=== PATIENT | male | born 1955 | race African-American/Black ===

== ENCOUNTER 2016-07-24 16:25 | Inpatient (IN) ==
[~2016-07-24 16:25] MED LIST: LIDOCAINE 100 MG/5 ML SYRINGE ONE; PHENYLEPHRINE 1 MG/10 ML SYRINGE IV ONE; PROPOFOL 200 MG/20 ML VIAL IV ONE
[2016-07-24] MEDS ORDERED: SODIUM CHLORIDE 0.9% 1,000 ML IV STA (16:48)
[2016-07-24 16:59] LABS: Basophils % 0.3 % (0.0-0.8); Eosinophils # 0.1 10*3/uL (0.0-0.87); Hematocrit 28.3 VOL% (42.0-52.0); Hemoglobin 10.5 GM/DL (14.0-18.0); Immature Granulocytes % 0.7 %; Immature Granulocytes Absolute 0.02 #; Lymphocytes % 32.5 % (21.2-54.2); Mean Corpuscular HGB Conc 37.1 GM/DL (32-36); Mean Corpuscular Hemoglobin 35 PG (27-34); Mean Corpuscular Volume 95.3 FL (87-102); Mean Platelet Volume 10.1 FL (9.6-12.0); Monocytes # 0.5 10*3/uL (0.11-0.8); Monocytes % 16.9 % (1.7-12.7); Neutrophils # 1.4 10*3/uL (1.4-7.4); Neutrophils % 47.6 % (38.7-73.9); Platelet Count 107 T/CUMM (130-400); Red Blood Count 2.97 MC/CUMM (3.8-5.5)
[2016-07-24 17:14] LABS: Alanine Aminotransferase 80 U/L (16-61); Albumin 2.8 G/DL (3.4-5.0); Alkaline Phosphatase 70 U/L (45-117); Aspartate Amino Transferase 348 U/L (0-37); Blood Urea Nitrogen 50 MG/DL (7-18); Calcium 9.1 MG/DL (8.5-10.1); Glucose 106 MG/DL (74-106); Osmolality,Calculated 295.1 MOS/KG (273-304); Sodium 142 MMOL/L (136-145); Total Protein 6.3 G/DL (6.4-8.3)
[2016-07-24 17:15] LABS: Troponin I Only 0.637 NG/ML (0.00-0.045)
[2016-07-24 17:16] LABS: Potassium 1.8 MMOL/L (3.5-5.1)
--- NOTE | 2016-07-24 17:18 | EKG Report ---
Stationary ECG Study [facility] ER Test Date: 07/24/2016 5:17:21 PM Pat Name: FERNIE KRAMER Department: Room: Gender: M [employer]: ELIEZER : 1955 Requested by: Xu Boogie Order Number: [id number] Reading MD: EDILMA HARPER Intervals [place] Rate: 56 P: 201 MA: 139 QRS: 19 QRSD: 117 T: -31 QT: 288 QTc: 279 Interpretive Statements Sinus rhythm with prolonged MA interval Prolonged QTc with repol abnorm Electronically Signed On 07-26-16 22:28:35 REHABILITATION PHYSICIAN by EDILMA HARPER [email or web address]
[2016-07-24] MEDS ORDERED: POTASSIUM CHLORIDE RIDER 20 MEQ in PREMIX 1 EACH IV STA (17:19)
[2016-07-24 17:44] LABS: Apearance,Urine Slightly Hazy (Clear); Bacteria,Urine Occasional /HPF (Few); Bilirubin,Urine Negative (Negative); Blood, Urine Negative (Negative); Glucose,Urine (UA) Negative (Negative); Hyaline Casts,Urine 3 /LPF (0-3); Ketones,Urine 5 mg/dL (Negative); Mucus,Urine Occasional /LPF (Occasional); Nitrite,Urine Positive (Negative); Protein,Urine 30 MG/DL; RBC,Urine 2 /HPF (0-4); Squamous Epithelial Cell,Urine Occasional /HPF (0-10); Urine Color Amber (Yellow); Urine Specific Gravity 1.014 (1.001-1.035); WBC,Urine 17 /HPF (0-6)
[2016-07-24 18:02] LABS: Ammonia 171 UMOL/L (11-32)
[2016-07-24] MEDS ORDERED: POTASSIUM CHLORIDE RIDER 200 ML IV ONE (18:05)
[2016-07-24 18:08] LABS: Barbiturates Screen,Urine Negative (Negative); Benzodiazepines Screen,Urine Negative (Negative); Cannabinoid Screen,Urine Negative (Negative); Opiate Screen,Urine Negative (Negative); Phencyclidine Screen,Urine Negative (Negative)
--- NOTE | 2016-07-24 18:15 | CT Report ---
CT head/brain wo con INDICATION: Altered mental status/confusion The total DLP is 1103 mGy*cm. COMPARISON: Noncontrast CT head dated November 20, 2015 Technique: Serial axial tomographic images of the brain were obtained without the use of intravenous contrast. Findings: Moderate, somewhat advanced, generalized atrophy is noted with mild prominence of the sulci and cortical volume loss. There is also prominent periventricular white matter hypodensity changes, which do not demonstrate mass effect and are slightly progressed from the prior study likely representing sequela of chronic microvascular ischemia. Remote right basal ganglia lacunar infarct is noted, which extends into the right centrum semiovale. There is no evidence of vascular territory infarct or acute intracranial hemorrhage. The persaud-white matter differentiation is generally maintained. There is no hydrocephalus. The basilar cisterns are patent. The visualized paranasal sinuses, mastoid air cells and middle ear cavities are predominantly clear. The included orbits and their contents appear within normal limits. The visualized osseous structures and overlying soft tissues of the skull and face demonstrate no acute abnormality. IMPRESSION: No acute intracranial hemorrhage or infarction. Age advanced atrophy with sequelae of chronic microvascular ischemia. If there is concern for acute infarct, MRI would be recommended. PROCEDURE INTERPRETED AT [facility] DEPARTMENT OF RADIOLOGY Final Report Signed by: Jeanmarie Lange
--- NOTE | 2016-07-24 18:22 | Emergency Department Note ---
Brian Mcdaniel Brittany, am scribing for, and in the presence of, Dirk Chirinos MD 16:53. Taran Mcdaniel Doug C, MD, personally performed the services described in this documentation, ascribed by Candace Torres in my presence, and it is both accurate and complete 821 . Arrival - Arrival Chief Complaint: Altered Mental Status ED Nursing Triage Note: reports pt having decreased appetite and seems to not be himself for the past few days. Pt is awake, alert, and follows simple commands but is not speaking which states is unusual. Mode of Arrival: Stretcher Limitations: No Limitations Source: Significant other, Old Records Reviewed, RN Notes Reviewed Time Seen by Provider: 07/24/16 16:47 - History of Present Illness HPI Narrative: Patient is a 60-year-old black male brought to the emergency room by family with complaints of decreased responsiveness. This is apparently been going on now for about 3 days according to the and he has had no appetite and is ate very little. He has not had any respiratory symptoms and has not had any nausea vomiting or diarrhea. I asked the about his habits and he apparently drinks about a pint of whiskey a day that the family brings to him at his urging. His states he has not had any alcohol mount 3 days. The parent was seen here in the emergency room on 07/17 and given some tramadol for pain but he is only taking 2 of those since that time. He has had no witnessed seizure activity. His is never seen him like this before. Allergies/Adverse Reactions: Allergies Allergy/AdvReac Type Severity Reaction Status Date / Time aspirin Allergy Mild Unknown/Unable Verified 07/24/16 16:37 to obtain lisinopril Allergy Unknown/Unable Verified 07/24/16 16:37 to obtain Home Medications: Home Medications Medication Instructions Recorded Confirmed Type Multivitamin [Multivitamins] 1 each PO DAILY #30 tablet 12/21/15 07/24/16 Rx Thiamine Tab [Vitamin B1 Tab] 100 mg PO DAILY #30 tablet 12/21/15 07/24/16 Rx hydroCHLOROthiazide 25 mg PO DAILY #30 tablet 12/21/15 07/24/16 Rx [Hydrochlorothiazide] Metoprolol Tartrate Tab [Lopressor 50 mg PO BID 01/05/16 07/24/16 History Tab] Potassium Chloride Cap/Tab [K Dur] 20 meq PO BID #14 tablet 07/11/16 07/24/16 Rx Review of System - Review of System 12 point system: reviewed and no additional remarkable complaints except as stated - Review of System Constitutional: Present: other (decreased appetite). Absent: chills, fever Eyes: Absent: vision change Head/Ears/Nose/Throat: Absent: nasal drainage, sore throat Respiratory: Present: respiratory distress. Absent: cough Cardiovascular: Absent: chest pain, palpitations Gastrointestinal: Absent: abdominal pain, nausea, vomiting, diarrhea, constipation Genitourinary male: Absent: urgency, dysuria, frequency Musculoskeletal: Present: arm pain, leg pain. Absent: back pain, neck pain Skin: Absent: rash Neurological: Present: confusion Medical,Surgical,& Family Hx - Medical History Cardio: History of: Cardiac Dysrhythmia (hx of afib not on anticoagulation), Hypertension Psychological: History of: Psychiatric/Substance Abuse Tx (ALCHOLISM he reports that he drinks at least a fifth a day. drinks all day) Neurology: History of: Brain Aneurysm, Cerebrovascular Accident HEENT: History of: Dental Problems (poor dentition) Rheumatology: History of;: Rheumatoid Arthritis Gastrointestinal: History of: GERD, Pancreatitis Musculoskeletal: History of: Musculoskeletal Problems (L SIDED WEAKNESS/ L UPPER EXT CONTRACTURE.) Hematology: History of: Anemia No history of: Blood Transfusion Reaction Other: History of: Miscellaneous Medical Problems (vein problems) No history of: Anesthesia Reactions - Surgical History Neurologic Surgeries: Surgical HX of: Brain Aneurysm Patient denies: Neurologic Surgery Abdominal Surgeries: Surgical HX of: Abdominal Surgery, Cholecystectomy, Colonoscopy, EGD, Hernia Repair - Family History Family History: Reports;: Family Cancer, Family Diabetes, Family Heart Disease, Family Hypertension, Family Stroke - Social History Smoking Status: Never smoker Frequency of Alcohol Use: Frequently Type of Drug Use: Unknown Exam Vital Signs: Vital Signs Temperature 97.9 F 07/24/16 16:30 Pulse Rate 96 H 07/24/16 16:30 Respiratory Rate 18 07/24/16 16:30 Blood Pressure 100/63 07/24/16 16:30 O2 Sat by Pulse Oximetry 96 07/24/16 16:30 - General General appearance: lethargic, obtunded, other (incoherent; responds to painful stimuli) - Head Head exam: Present: atraumatic, normocephalic - Eye Eye exam: Present: normal appearance, PERRL, EOMI, scleral icterus (Slight icterus seen.) - ENT ENT exam: Present: normal oropharynx, mucous membranes moist - Neck Neck exam: Present: normal inspection, full ROM, trachea midline - Chest Chest inspection: Present: normal inspection, symmetric chest wall rise - Respiratory Respiratory exam: Present: normal lung sounds bilaterally. Absent: rales, rhonchi, wheezes - Cardiovascular Cardiovascular exam: Present: regular rate, normal rhythm, normal heart sounds. Absent: murmur, rubs, gallop - Abdominal Exam Abdominal exam: Present: soft, normal bowel sounds. Absent: distention, tenderness - Extremities Exam Extremities exam: Present: pedal edema. Absent: full ROM (limited due to residual paralysis of the left side from prior CVA), joint swelling - Back Exam Back exam: Present: normal inspection - Neurological Exam Neurological exam: Present: CN II-XII intact, motor sensory deficit (residual left sided paralysis from prior CVA). Absent: alert (patient is lethargic, but responds to painful stimuli), oriented X3 - Psychiatric Psychiatric exam: Present: flat affect - Skin Skin exam: Present: warm, dry, intact, normal color Course Course Narrative: Patient's clinical presentation and laboratory findings as well as radiographic findings were discussed with Dr. Cheli Dennis who will arrange for patient to be admitted. Results - Labs CBC & BMP: 07/24/16 16:33 07/24/16 16:33 Lab Results: I have reviewed the patients labs Labs: Laboratory Tests 07/24/16 07/24/16 07/24/16 16:33 16:33 16:50 WBC 3.0 L RBC 2.97 L Hgb 10.5 L Hct 28.3 L MCV 95.3 MCH 35 H MCHC 37.1 H RDW 14.0 Plt Count 107 L MPV 10.1 Neut % (Auto) 47.6 Lymph % (Auto) 32.5 Quay % (Auto) 16.9 H Eos % (Auto) 2.0 Baso % (Auto) 0.3 Neut # (Auto) 1.4 Lymph # (Auto) 1.0 L Quay # (Auto) 0.5 Eos # (Auto) 0.1 Baso # (Auto) 0.0 Immature Gran % 0.7 Nucleated RBC % 0.0 Immature Gran # 0.02 Nucleated RBCs # 0.00 Sodium 142 Potassium 1.8 L* Chloride 107 Carbon Dioxide 15 L Anion Gap 21.8 H BUN 50 H Creatinine 2.10 H GFR Calculation 44 BUN/Creatinine Ratio 23.00 H Glucose 106 POC Glucose 91 Calculated Osmolality 295.1 Calcium 9.1 Total Bilirubin 3.10 H AST 348 H ALT 80 H Alkaline Phosphatase 70 Troponin I 0.637 H Total Protein 6.3 L Albumin 2.8 L Globulin 3.5 Albumin/Globulin Ratio 0.8 L Serum Alcohol < 15 L Laboratory Tests 07/24/16 16:33 Prolactin 40.8 - EKG EKG shows: bradycardia (Sinus bradycardia at 56 bpm) - Impressions Diffuse ST-T flattening - Diagnostic Findings Procedure: Chest x-ray: report reviewed by me (No acute abnormality seen.), CT: report reviewed by me (CT brain revealed changes of atrophy. I saw no acute hemorrhage) Disposition Clinical Impression: Hepatic encephalopathy, Hypokalemia Case discussed with: patient's family Disposition: Still a Patient Condition: Guarded Time of Disposition: 18:21
--- NOTE | 2016-07-24 18:42 | XRay Report ---
Exam: XR chest 1V portable Indication: Altered mental status, confusion Comparison study: April 21, 2016 Findings: The heart, mediastinum and bony structures are stable from prior. Minimal perihilar interstitial opacities are noted bilaterally which are slightly increased from prior and may represent a degree of underlying edema superimposed on chronic scarring. Low lung volumes are noted. There is improved aeration within the left lung base. There is no focal consolidation, pneumothorax or pleural effusion identified. Impression: Improved aeration within the left lung base. Residual central perihilar scarring is suggested in the degree of pulmonary edema is not excluded. Interval clearing of left basilar opacities. PROCEDURE INTERPRETED AT [facility] DEPARTMENT OF RADIOLOGY Final Report Signed by: Jeanmarie Lange
[2016-07-24] MEDS ORDERED: THIAMINE 200 MG/2 ML VIAL IV STA (18:44)
[2016-07-24] MEDS ORDERED: THIAMINE 200 MG/2 ML VIAL ONE (18:48)
--- NOTE | 2016-07-24 18:58 | Hospitalist History & Physical ---
Assessment and Plan (1) Hepatic encephalopathy Status: Acute Assessment and plan: ammonia level of 171, lactulose 20 grams q 4 hours through NG Current Visit: Yes (2) Alcoholic hepatitis Status: Acute Assessment and plan: Monitor liver enzymes, check PT PTT Current Visit: Yes (3) Cirrhosis Status: Acute Assessment and plan: Pancytopenia and elevated ammonia suggestive cirrhosis Current Visit: Yes (4) Pancytopenia Status: Acute Assessment and plan: Check B12 and folate but most likely due to cirrhosis, will give Pepcid 20 mg IV every 12 Current Visit: Yes (5) Hypotension Status: Acute Assessment and plan: will give D5 half normal saline with 1 amp of bicarb at 150 ml/hr Current Visit: Yes (6) UTI (urinary tract infection) Status: Acute Assessment and plan: rocephin IV Current Visit: Yes (7) Elevated troponin Status: Acute Assessment and plan: serial troponins and EKGs Current Visit: Yes (8) Alcoholic Status: Acute Assessment and plan: thiamine, folate, ciwa schedule, prn ativan, high risk for withdrawal and seizures Current Visit: Yes (9) Hypokalemia Status: Acute Assessment and plan: KCL 40 meq every 2 hours times 3, potassium chloride rider 60 meq IV over 6 hours Current Visit: Yes (10) Acute renal failure Status: Acute Assessment and plan: due to severe dehdyration, cont IVF, renal us in am Current Visit: Yes History of Present Illness Chief complaint: AMS History of present illness: Mr. Quijano is a 60 year old male with a history of stroke in 2010 which left him with left hemiparesis brought in for altered mental status. His ammonia level was 171. Patient is not walked in over a year but this does get up in the wheelchair but for the past few days he has been bedridden. Patient drinks about a pint of whiskey a day. He has had no alcohol since . He has been lethargic and has been taking an excessive amount of ibuprofen up to as much as 2000 mg a day. Patient has refused his blood pressure medicines for the last several days. He has stopped eating and drinking for last several days. denies any seizure activity. Patient has no desire to stop drinking at this point. Home Medications Medication Instructions Recorded Confirmed Type Multivitamin [Multivitamins] 1 each PO DAILY #30 tablet 12/21/15 07/24/16 Rx Thiamine Tab [Vitamin B1 Tab] 100 mg PO DAILY #30 tablet 12/21/15 07/24/16 Rx hydroCHLOROthiazide 25 mg PO DAILY #30 tablet 12/21/15 07/24/16 Rx [Hydrochlorothiazide] Metoprolol Tartrate Tab [Lopressor 50 mg PO BID 01/05/16 07/24/16 History Tab] Potassium Chloride Cap/Tab [K Dur] 20 meq PO BID #14 tablet 07/11/16 07/24/16 Rx Allergies Allergy/AdvReac Type Severity Reaction Status Date / Time aspirin Allergy Mild Unknown/Unable Verified 07/24/16 16:37 to obtain lisinopril Allergy Unknown/Unable Verified 07/24/16 16:37 to obtain Medical,Surgical,& Family Hx - Medical History Cardio: History of: Cardiac Dysrhythmia (hx of afib not on anticoagulation), Hypertension Psychological: History of: Psychiatric/Substance Abuse Tx (ALCHOLISM he reports that he drinks at least a fifth a day. drinks all day) Neurology: History of: Brain Aneurysm, Cerebrovascular Accident HEENT: History of: Dental Problems (poor dentition) Rheumatology: History of;: Rheumatoid Arthritis Gastrointestinal: History of: GERD, Pancreatitis Musculoskeletal: History of: Musculoskeletal Problems (L SIDED WEAKNESS/ L UPPER EXT CONTRACTURE.) Hematology: History of: Anemia No history of: Blood Transfusion Reaction Other: History of: Miscellaneous Medical Problems (vein problems) No history of: Anesthesia Reactions - Surgical History Neurologic Surgeries: Surgical HX of: Brain Aneurysm Patient denies: Neurologic Surgery Abdominal Surgeries: Surgical HX of: Abdominal Surgery, Cholecystectomy, Colonoscopy, EGD, Hernia Repair - Family History Family History: Reports;: Family Cancer, Family Diabetes, Family Heart Disease, Family Hypertension, Family Stroke - Social History Smoking Status: Never smoker Frequency of Alcohol Use: Frequently Type of Drug Use: Unknown Marital Status: Lives With:: Spouse Functional capacity: wheelchair bound ROS unobtainable: due to delirium - Neurological Neurological: Present: confusion, focal weakness (left hemiparesis chronic ). Absent: convulsions - Psychiatric Psychiatric: Present: depression - Hematologic/Lymphatic Hematologic/Lymphatic: Present: easy bleeding, easy bruising Exam - Constitutional Vitals: Period Temp Pulse Resp BP Sys/Newton Pulse Ox Last 24 Hr 97.9 F 96-96 18-20 100/63 96 General appearance: mild distress, under weight - Head Head exam: Present: normal inspection, normocephalic - Eye Eye exam: Present: EOMI, scleral icterus Pupils: Present: SOBEIDA - ENT ENT exam: Present: normal exam, normal external ear exam - Neck Neck exam: Absent: lymphadenopathy, thyromegaly - Respiratory Respiratory exam: Present: clear to auscultation bilaterally. Absent: rhonchi, wheezes - Cardiovascular Cardiovascular exam: Present: systolic murmur, tachycardia - GI/Abdominal GI/Abdominal exam: Present: normal bowel sounds, soft. Absent: tenderness - Extremities Exam Extremities exam: Present: normal capillary refill, edema - Neurological Exam Neurological exam: Present: altered, reflexes normal - Psychiatric Psychiatric exam: Present: depressed, flat affect - Skin Skin exam: Present: normal color, warm Results - Labs CBC & BMP: 07/24/16 16:33 07/24/16 16:33 Lab Results: I have reviewed the past 24 hour labs Labs: AST 348, ALT 80, ammonia level 171, troponin 0.637, prolactin 40, UA positive for infection, drug screen negative and alcohol level less than 15 - Diagnostic Findings Procedure: Chest x-ray: report reviewed by me (Nothing acute), CT: report reviewed by me (Advanced atrophy of the brain)
[2016-07-24 19:16] LABS: Burr Cells Few; Eosinophils 2 % (0-10); Lymphocytes 24 % (20-55); Platelet Estimate Decreased; Poikilocytosis 1+; Segmented Neutrophils 66 % (50-85); Tear Drop Cells Few; Total Cells Counted 100
[2016-07-24] MEDS ORDERED: ONDANSETRON 4 MG/2 ML VIAL IV PRN (19:25)
[2016-07-24] MEDS: SODIUM BICARB INJ 50 MEQ in DEXTROSE 5% NACL 0.45% 1,000 ML IV SCH (20:18)
[2016-07-24 20:41] LABS: INR 1.9; Partial Thromboplastin Time 32.7 SECS (0-40)
[2016-07-24 20:42] LABS: PT Patient Result 21.4 SECS
[2016-07-24 20:53] LABS: Magnesium 2.2 MG/DL (1.8-2.4); Thyroid Stimulating Hormone 2.17 uIU/ml (0.358-3.74); Troponin I Only 0.548 NG/ML (0.00-0.045)
[2016-07-24 20:57] LABS: Folate > 24.0 NG/ML (5.4-24.0); Vitamin B12 > 2000 PG/ML (211-911)
[2016-07-24] MEDS ORDERED: MAGNESIUM SULF INJ 3 GM in SODIUM CHLORIDE 0.9% 100 ML IV ONE (21:00)
[2016-07-24] MEDS: cefTRIAXone 1,000 MG in SODIUM CHLORIDE 0.9% 100 ML IV SCH (21:15)
[2016-07-24] MEDS: POTASSIUM CHLORIDE 20 MEQ/15 ML UDCUP PER TUBE SCH ×2 (21:16→22:25)
[2016-07-24] MEDS: LACTULOSE 20 GM/30 ML UDCUP PO SCH (21:17)
[2016-07-24] MEDS: FAMOTIDINE 20 MG/2 ML VIAL IV SCH (21:17)
[2016-07-24] MEDS: POTASSIUM CHLORIDE RIDER 10 MEQ in PREMIX 1 EACH IV SCH ×3 (21:18→23:33)
[2016-07-24] MEDS: MORPHINE 2 MG/1 ML SYRINGE IV PRN (22:26)
[2016-07-25] MEDS: POTASSIUM CHLORIDE RIDER 10 MEQ in PREMIX 1 EACH IV SCH ×5 (00:53→03:12)
[2016-07-25] MEDS: LACTULOSE 20 GM/30 ML UDCUP PO SCH ×6 (00:54→21:08)
[2016-07-25] MEDS: POTASSIUM CHLORIDE 20 MEQ/15 ML UDCUP PER TUBE SCH (00:54)
[2016-07-25 01:34] LABS: Basophils % 0.4 % (0.0-0.8); Eosinophils # 0.1 10*3/uL (0.0-0.87); Eosinophils % 1.9 % (0.00-10.9); Hematocrit 27.9 VOL% (42.0-52.0); Hemoglobin 10.3 GM/DL (14.0-18.0); Immature Granulocytes % 0.4 %; Immature Granulocytes Absolute 0.01 #; Lymphocytes # 0.7 10*3/uL (1.4-4.0); Lymphocytes % 27.4 % (21.2-54.2); Mean Corpuscular HGB Conc 36.9 GM/DL (32-36); Mean Corpuscular Hemoglobin 35 PG (27-34); Mean Corpuscular Volume 95.2 FL (87-102); Mean Platelet Volume 9.8 FL (9.6-12.0); Monocytes # 0.4 10*3/uL (0.11-0.8); Monocytes % 13.7 % (1.7-12.7); Neutrophils # 1.5 10*3/uL (1.4-7.4); Neutrophils % 56.2 % (38.7-73.9); Platelet Count 95 T/CUMM (130-400); Red Blood Count 2.93 MC/CUMM (3.8-5.5); Red Cell Distribution Width 13.9 % (9.3-17.3); White Blood Count 2.6 T/CUMM (4-12)
[2016-07-25 02:13] LABS: Albumin 2.7 G/DL (3.4-5.0); Bilirubin,Total 3.2 MG/DL (0.2-1.0); Calcium 8.1 MG/DL (8.5-10.1); Osmolality,Calculated 302.7 MOS/KG (273-304); Potassium 2.7 MMOL/L (3.5-5.1); Total Protein 6.2 G/DL (6.4-8.3)
[2016-07-25 02:38] LABS: Band Neutrophils 1 % (0-10); Eosinophils 1 % (0-10); Lymphocytes 33 % (20-55); Segmented Neutrophils 61 % (50-85); Total Cells Counted 100
[2016-07-25 02:39] LABS: Anisocytosis 1+; Platelet Estimate Decreased
[2016-07-25] MEDS: SODIUM BICARB INJ 50 MEQ in DEXTROSE 5% NACL 0.45% 1,000 ML IV SCH (03:12)
[2016-07-25 04:32] LABS: Allen Test Positive; Pt O2 Delivery Device Room Air
[2016-07-25 04:35] LABS: ABG Base Excess -6.8 MMOL/L (-2.5-2.5); ABG HCO3 18.9 MMOL/L (20-26); ABG Oxygen Saturation 98.4 % (95-100); ABG PCO2 24.8 MM HG (35-48); ABG PH 7.425 (7.35-7.45); ABG TCO2 14.7 MMOL/L (23-27)
[2016-07-25] MEDS ORDERED: SODIUM BICARBONATE 50 MEQ/50 ML VIAL IV ONE (08:13)
--- NOTE | 2016-07-25 08:30 | Ultrasound Report ---
Renal ultrasound Indication: Acute renal failure Comparison: None available Findings: Kidneys are normal in size and echogenicity. No hydronephrosis or nephrolithiasis is seen. The right renal length is 11.0 cm. The left renal length is 11.7 cm. No free fluid or other abnormality is seen. Impression: No evidence of abnormality demonstrated. Ultrasound images stored and captured. PROCEDURE INTERPRETED AT [facility] DEPARTMENT OF RADIOLOGY Final Report Signed by: Dr. Sp Kimbrough
--- NOTE | 2016-07-25 09:11 | Hospitalist Progress Note ---
Assessment and Plan (1) Hepatic encephalopathy Status: Acute Assessment and plan: He presented when ammonia level of 170 when asked down to 157 he is more alert we'll continue with the scheduled lactulose. Per the patient he states that he has stopped drinking however per the records on presentation Y stated that he had no desire to stop drinking. Overall he is a very or prognosis given his cirrhosis with pancytopenia and continued alcohol consumption. Current Visit: Yes (2) Pancytopenia Status: Acute Current Visit: Yes (3) Hypotension Status: Acute Assessment and plan: He is still somewhat hypotensive we'll continue with IV hydration clinically he appears to be dehydrated. Current Visit: Yes (4) UTI (urinary tract infection) Status: Acute Assessment and plan: This urinary tract infection could also be contributing to his encephalopathy. He has been currently placed on Rocephin which I do agree with continuing until final cultures and sensitivities Current Visit: Yes (5) Elevated troponin Status: Chronic Assessment and plan: likely some demand ischemia given he was hypotensive on presentation. He is more alert and denies any chest pain. Given his CHANDRAKANT, hypokalemia and encephalopathy undoubtedly cardiology would do any type of intervention at this point. Maybe once he's more stable from a medical standpoint we can obtain a consultation to see if any further invasive evaluation is needed. Current Visit: No (6) Hypokalemia Status: Acute Assessment and plan: this is improving with replacement of his potassium Current Visit: No (7) Alcoholic hepatitis Status: Acute Current Visit: Yes (8) Cirrhosis Status: Chronic Current Visit: Yes Qualifiers: Hepatic cirrhosis type: alcoholic cirrhosis Hospitalist: Subjective Interval history: Sameer Quijano is a 60-year-old male with a history of alcohol use who presented with altered mental status. He was found to have hepatic encephalopathy and also the possibility of infectious encephalopathy does have urinary tract infection. He was also in acute kidney injury with hypokalemia. All these issues admitted addressed. This morning he is more alert he did not realize that he was in the hospital and stating that he has to go home Exam - Constitutional Vitals: Period Temp Pulse Resp BP Sys/Newton Pulse Ox Last 24 Hr 97.3 F-97.9 F 51-64 11-18 94-123/61-85 100-100 General appearance: no acute distress Exam: middle age male who looks older than stated age in NAD - Head Head exam: Present: normocephalic, atraumatic - Eye Eye exam: Present: EOMI Pupils: Present: SOBEIDA - ENT ENT exam: Present: other (she has poor dentition) - Neck Neck exam: Present: normal inspection - Respiratory Respiratory exam: Present: clear to auscultation bilaterally - Cardiovascular Cardiovascular exam: Present: regular rate and rhythm - GI/Abdominal GI/Abdominal exam: Present: hypoactive bowel sounds, soft - Neurological Exam Neurological exam: Present: alert - Skin Skin exam: Present: warm, intact Results - Labs CBC & BMP: 07/25/16 01:22 07/25/16 01:22
[2016-07-25] MEDS: FAMOTIDINE 20 MG/2 ML VIAL IV SCH (09:33)
[2016-07-25] MEDS: THIAMINE 200 MG/2 ML VIAL IV SCH (09:35)
[2016-07-25] MEDS: POTASSIUM CHLORIDE INJ 10 MEQ in DEXTROSE 5% 1,000 ML IV SCH ×2 (09:47→18:43)
[2016-07-25] MEDS: FOLIC ACID 1 MG TABLET PO SCH (09:48)
[2016-07-25] MEDS: SKIN HEALING OINT (AQUAPHOR) 50 GM TUBE TOP PRN (12:41)
[2016-07-25 14:32] LABS: Hematocrit 27.3 VOL% (42.0-52.0); Hemoglobin 10.3 GM/DL (14.0-18.0)
[2016-07-25] MEDS ORDERED: SODIUM CHLORIDE 0.9% 250 ML IV ONE (14:43)
--- NOTE | 2016-07-25 15:17 | Gastrointestinal Consult Note ---
Assessment and Plan (1) Melena Status: Acute Assessment and plan: 07/25-Findings of melena, and some hematochezia with stool. No prior (known) history of GI bleed in past. Hgb 10.3, with most recent baseline 11-12. Report of dark tarry stools with bright red blood by nursing staff today. Monitor serial HH. Change from Pepcid to Protonix IV and continue to monitor his pancytopenia. Plan and addendum to follow by Dr Nathan. Current Visit: Yes History of Present Illness Chief complaint: Anemia History of present illness: Mr. Quijano is a 60 year old male who presented to the ER with onset of decreased responsiveness. Pt is a poor historian and at this time he is agitated and not very cooperative with history taking. He is reported that approximately 3 days ago he had a change in his mental status. He has had no appetite and been less responsive, not ate or drank in several days. He is reported to have a history of alcohol use with drinking a pint of whiskey daily with years. Last alcohol intake was 3 days ago. 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 He has not ambulated in over a year however would transfer to his wheelchair until recently. He is also reported to not be complaint with his medications recently and has been taking excessive amounts of Ibuprofen at 2000mg daily. He was found on admission to have elevated ammonia at 171. He has never had an official diagnosis of cirrhosis however noted on admission to have elevated LFTs and pancytopenia. The nursing staff noted today that pt had a dark tarry bowel movement with some bright red blood mixed in with the stool. Pt states she has not seen any bleeding at home recently. Pt answers all questions with a "no" therefore history taking is complicated, not present during visit. He is noted to have hemoglobin of 10.3 with baseline on prior admissions at 11-12. Bun/Cr ratio 27. Ammonia 156, Albumin 2.7. No prior known history of endoscopy in the past. Pt does state he has no interest in stopping drinking at this point. Home Medications Medication Instructions Recorded Confirmed Type Multivitamin [Multivitamins] 1 each PO DAILY #30 tablet 12/21/15 07/24/16 Rx Thiamine Tab [Vitamin B1 Tab] 100 mg PO DAILY #30 tablet 12/21/15 07/24/16 Rx hydroCHLOROthiazide 25 mg PO DAILY #30 tablet 12/21/15 07/24/16 Rx [Hydrochlorothiazide] Metoprolol Tartrate Tab [Lopressor 50 mg PO BID 01/05/16 07/24/16 History Tab] Potassium Chloride Cap/Tab [K Dur] 20 meq PO BID #14 tablet 07/11/16 07/24/16 Rx Allergies Allergy/AdvReac Type Severity Reaction Status Date / Time aspirin Allergy Mild Unknown/Unable Verified 07/24/16 16:37 to obtain lisinopril Allergy Unknown/Unable Verified 07/24/16 16:37 to obtain Medical,Surgical,& Family Hx - Medical History Cardio: History of: Cardiac Dysrhythmia (hx of afib not on anticoagulation), Hypertension Psychological: History of: Psychiatric/Substance Abuse Tx (ALCHOLISM he reports that he drinks at least a fifth a day. drinks all day) Neurology: History of: Brain Aneurysm, Cerebrovascular Accident (2010) HEENT: History of: Dental Problems (poor dentition) Rheumatology: History of;: Rheumatoid Arthritis Gastrointestinal: History of: GERD, Pancreatitis Musculoskeletal: History of: Musculoskeletal Problems (L SIDED WEAKNESS/ L UPPER EXT CONTRACTURE.) Hematology: History of: Anemia No history of: Blood Transfusion Reaction Other: History of: Miscellaneous Medical Problems (vein problems) No history of: Anesthesia Reactions - Surgical History Neurologic Surgeries: Surgical HX of: Brain Aneurysm Patient denies: Neurologic Surgery Abdominal Surgeries: Surgical HX of: Abdominal Surgery, Cholecystectomy, Colonoscopy, EGD, Hernia Repair - Family History Family History: Reports;: Family Cancer, Family Diabetes, Family Heart Disease, Family Hypertension, Family Stroke - Social History Smoking Status: Never smoker Frequency of Alcohol Use: Frequently Type of Drug Use: Unknown 12 point system: reviewed and no additional remarkable complaints except as stated - Constitutional Constitutional: Present: as per HPI - EENT Eyes: Present: as per HPI Ears: Present: as per HPI Nose, mouth and throat: Present: as per HPI - Cardiovascular Cardiovascular: Present: as per HPI - Respiratory Respiratory: Present: as per HPI - Gastrointestinal Gastrointestinal: Present: as per HPI - Genitourinary Genitourinary: Present: as per HPI - Musculoskeletal Musculoskeletal: Present: as per HPI - Neurological Neurological: Present: as per HPI - Psychiatric Psychiatric: Present: as per HPI - Endocrine Endocrine: Present: as per HPI - Hematologic/Lymphatic Hematologic/Lymphatic: Present: as per HPI Exam - Constitutional Vitals: Period Temp Pulse Resp BP Sys/Newton Pulse Ox Last 24 Hr 97.3 F-97.9 F 51-66 11-20 66-123/42-85 99-100 General appearance: normal weight, no acute distress - Head Head exam: Present: normal inspection, normocephalic - Eye Eye exam: Present: other (lids and conjunctiva unremarkable). Absent: scleral icterus - ENT ENT exam: Present: normal exam, normal oropharynx - Neck Neck exam: Present: normal inspection - Respiratory Respiratory exam: Present: clear to auscultation bilaterally. Absent: rales, rhonchi, wheezes - Cardiovascular Cardiovascular exam: Present: regular rate and rhythm. Absent: diastolic murmur , JVD, systolic murmur - GI/Abdominal GI/Abdominal exam: Present: normal bowel sounds, soft. Absent: ascites, distended, mass, organomegaly, tenderness - Extremities Exam Extremities exam: Present: normal inspection - Back Exam Back exam: Present: normal inspection - Neurological Exam Neurological exam: Present: alert, other - Psychiatric Psychiatric exam: Present: agitated - Skin Skin exam: Present: normal color, warm, dry Results - Labs CBC & BMP: 07/25/16 14:28 07/25/16 01:22 Lab Results: I have reviewed the past 24 hour labs
[2016-07-25] MEDS ORDERED: FAMOTIDINE 20 MG/2 ML VIAL IV SCH (15:30)
[2016-07-25 16:06] LABS: Calcium 8.3 MG/DL (8.5-10.1); Magnesium 2.5 MG/DL (1.8-2.4); Osmolality,Calculated 301.4 MOS/KG (273-304)
[2016-07-25 16:14] LABS: Potassium 2.4 MMOL/L (3.5-5.1)
[2016-07-25 20:35] LABS: Hematocrit 27.3 VOL% (42.0-52.0); Hemoglobin 10.1 GM/DL (14.0-18.0)
[2016-07-25] MEDS ORDERED: PANTOPRAZOLE 40 MG VIAL IV SCH (21:00)
[2016-07-25] MEDS: PANTOPRAZOLE 40 MG VIAL IV SCH (21:08)
[2016-07-25] MEDS: POTASSIUM CHLORIDE 20 MEQ TABLET PO SCH (21:08)
[2016-07-25] MEDS: cefTRIAXone 1,000 MG in SODIUM CHLORIDE 0.9% 100 ML IV SCH (21:08)
[2016-07-25] MEDS: LORazepam 2 MG/1 ML VIAL IV PRN (23:54)
[2016-07-26] MEDS: POTASSIUM CHLORIDE INJ 10 MEQ in DEXTROSE 5% 1,000 ML IV SCH ×4 (01:48→18:12)
[2016-07-26] MEDS: LACTULOSE 20 GM/30 ML UDCUP PO SCH ×6 (01:48→20:48)
[2016-07-26] MEDS: POTASSIUM CHLORIDE 20 MEQ TABLET PO SCH (01:49)
[2016-07-26] MEDS: MORPHINE 2 MG/1 ML SYRINGE IV PRN (02:59)
[2016-07-26 03:01] LABS: Apearance,Urine CLEAR (Clear); Bilirubin,Urine Negative (Negative); Blood, Urine Negative (Negative); Glucose,Urine (UA) Negative (Negative); Ketones,Urine Negative (Negative); Nitrite,Urine Negative (Negative); Protein,Urine Negative; RBC,Urine 1 /HPF (0-4); Squamous Epithelial Cell,Urine Occasional /HPF (0-10); Urine Color Yellow (Yellow); Urine Specific Gravity 1.012 (1.001-1.035); WBC,Urine 2 /HPF (0-6)
[2016-07-26 06:56] LABS: Hematocrit 27.3 VOL% (42.0-52.0); Hemoglobin 10.1 GM/DL (14.0-18.0)
[2016-07-26 07:26] LABS: Albumin 2.4 G/DL (3.4-5.0); Bilirubin,Total 3.7 MG/DL (0.2-1.0); Calcium 8.1 MG/DL (8.5-10.1); Osmolality,Calculated 293.7 MOS/KG (273-304); Potassium 2.7 MMOL/L (3.5-5.1); Total Protein 5.8 G/DL (6.4-8.3)
[2016-07-26] MEDS ORDERED: POTASSIUM CHLORIDE 10 MEQ TABLET PO ONE (08:13)
[2016-07-26] MEDS: THIAMINE 200 MG/2 ML VIAL IV SCH (08:38)
[2016-07-26] MEDS: PANTOPRAZOLE 40 MG VIAL IV SCH ×2 (08:40→20:48)
[2016-07-26] MEDS: FOLIC ACID 1 MG TABLET PO SCH (08:47)
[2016-07-26 09:07] LABS: Basophils % 1.1 % (0.0-0.8); Eosinophils % 1.4 % (0.00-10.9); Hematocrit 25.9 VOL% (42.0-52.0); Hemoglobin 9.7 GM/DL (14.0-18.0); Immature Granulocytes % 1.4 %; Immature Granulocytes Absolute 0.04 #; Lymphocytes # 0.7 10*3/uL (1.4-4.0); Lymphocytes % 26.4 % (21.2-54.2); Mean Corpuscular HGB Conc 37.5 GM/DL (32-36); Mean Corpuscular Hemoglobin 35 PG (27-34); Mean Corpuscular Volume 94.2 FL (87-102); Mean Platelet Volume 10.3 FL (9.6-12.0); Monocytes # 0.5 10*3/uL (0.11-0.8); Monocytes % 16.3 % (1.7-12.7); NRBC # 0.04 10*3/uL; Neutrophils # 1.5 10*3/uL (1.4-7.4); Neutrophils % 53.4 % (38.7-73.9); Platelet Count 95 T/CUMM (130-400); Red Blood Count 2.75 MC/CUMM (3.8-5.5); Red Cell Distribution Width 14.6 % (9.3-17.3); White Blood Count 2.8 T/CUMM (4-12)
[2016-07-26 09:38] LABS: Band Neutrophils 2 % (0-10); Lymphocytes 35 % (20-55); Nucleated Red Blood Cells 1 (0-5); Platelet Estimate Decreased; Segmented Neutrophils 54 % (50-85); Total Cells Counted 100
[2016-07-26 09:39] LABS: Elliptocytes Few; Hypochromasia 1+
--- NOTE | 2016-07-26 09:45 | Hospitalist Progress Note ---
Assessment and Plan (1) Hepatic encephalopathy Status: Acute Assessment and plan: He presented when ammonia level of 170 when asked down to 157 he is more alert we'll continue with the scheduled lactulose. Per the patient he states that he has stopped drinking however per the records on presentation Y stated that he had no desire to stop drinking. Overall he is a very or prognosis given his cirrhosis with pancytopenia and continued alcohol consumption. 07/26/16: he still hasn't had many bowel movements and his ammonia level is still elevated. I will increase lactulose to 40 mg Q4, repeat ammonia in the am Current Visit: Yes (2) Pancytopenia Status: Acute Assessment and plan: likely chronic but could be related to underlying sepsis. I do feel like his platelet count runs low because of his underlying cirrhosis. Current Visit: Yes (3) Hypotension Status: Acute Assessment and plan: He is still somewhat hypotensive we'll continue with IV hydration clinically he appears to be dehydrated. Current Visit: Yes (4) UTI (urinary tract infection) Status: Acute Assessment and plan: This urinary tract infection could also be contributing to his encephalopathy. He has been currently placed on Rocephin which I do agree with continuing until final cultures and sensitivities 07/26/16: E coli but about 1,000 also gram positive cocci, continue with Rocephin until final culture Current Visit: Yes (5) Elevated troponin Status: Chronic Assessment and plan: likely some demand ischemia given he was hypotensive on presentation. He is more alert and denies any chest pain. Given his CHANDRAKANT, hypokalemia and encephalopathy undoubtedly cardiology would do any type of intervention at this point. Maybe once he's more stable from a medical standpoint we can obtain a consultation to see if any further invasive evaluation is needed. Current Visit: No (6) Hypokalemia Status: Acute Assessment and plan: this is improving with replacement of his potassium 07/26/16: continue to replete Current Visit: No (7) Alcoholic hepatitis Status: Acute Current Visit: Yes (8) Cirrhosis Status: Chronic Current Visit: Yes Qualifiers: Hepatic cirrhosis type: alcoholic cirrhosis (9) UGIB (upper gastrointestinal bleed) Status: Acute Assessment and plan: he was found to have dark stools. likely from with PUD, or varices. GI will do EGD today Current Visit: Yes Hospitalist: Subjective Interval history: Patient is still lethargic but does answer questions. He was admitted with sepsis associated with a GI bleed likely upper GI bleed and cirrhosis. Blood pressures been stable since yesterday afternoon there were no overnight events. Exam - Constitutional Vitals: Period Temp Pulse Resp BP Sys/Newton Pulse Ox Last 24 Hr 96.7 F-98.9 F 59-79 12-20 66-113/42-84 99-100 Exam: ill appearing male who also looks older than his stated age - Head Head exam: Present: normocephalic, atraumatic - Eye Eye exam: Present: EOMI Pupils: Present: SOBEIDA - Respiratory Respiratory exam: Present: clear to auscultation bilaterally - Cardiovascular Cardiovascular exam: Present: regular rate and rhythm - GI/Abdominal GI/Abdominal exam: Present: hypoactive bowel sounds, soft - Extremities Exam Extremities exam: Present: full ROM - Skin Skin exam: Present: warm, intact Results - Labs CBC & BMP: 07/26/16 08:43 07/26/16 05:39
[2016-07-26] MEDS ORDERED: MAGNESIUM SULF RIDER 4 GM in PREMIX 1 EACH IV PRN (12:38)
[2016-07-26] MEDS ORDERED: MAGNESIUM SULF RIDER 2 GM in PREMIX 1 EACH IV PRN (12:38)
--- NOTE | 2016-07-26 12:40 | Cardiology Consult Note ---
Joseluis Mcdaniel Lauren, RN, am scribing for, and in the presence of, Emanuel Villafana MD 12: 32. Assessment and Plan - Time spent with patient Time spent with patient: Greater than 30 minutes (1) Elevated troponin Status: Acute Assessment and plan: 60 y/o BM, doesn't follow with cardiology. Hx of HTN, prior CVA c left hemiparesis, fibromyalgia, GERD, hypercholesterolemia. Presents with AMS, dx with hepatic encephalopathy, cirrhosis, pancytopenia, ETOH abuse, hypotension, hypokalemia, elevated troponin. Susp UGIB, EGD planned -H/o CP. He had a normal stress test recently. Bedside echo today showed normal systolic function and no PHTN, full report to follow. -Chronic mild elev of troponin, with normal CPK MB. Could be incr level due to impaired elimination. No further workup is needed -Low BP, hypokalemia - likely poor po intake due to changed MS -Severe hypokalemia. This is likely contributing to the frequent PVCs and prolonged QTc. Recommend repletion and resuming BB, when BP allows, to decrease arrhythmia risk during sedation/EGD -Check and follow Mg level, replete prn -Keep on telemetry Current Visit: Yes (2) Acute renal failure Status: Acute Current Visit: Yes (3) Alcoholic hepatitis Status: Acute Current Visit: Yes (4) Cirrhosis Status: Acute Current Visit: Yes (5) Hepatic encephalopathy Status: Acute Current Visit: Yes (6) Hypokalemia Status: Acute Current Visit: Yes (7) Hypotension Status: Acute Current Visit: Yes (8) Melena Status: Acute Current Visit: Yes (9) Pancytopenia Status: Acute Current Visit: Yes (10) UGIB (upper gastrointestinal bleed) Status: Acute Current Visit: Yes (11) UTI (urinary tract infection) Status: Acute Current Visit: Yes (12) CVA, old, hemiparesis Status: Chronic Current Visit: No History of Present Illness - Data of Consult Patient: new to practice Consult date: 07/26/16 Requesting Physician: Tiki Fall - Consult Narrative Reason for consult: pre-operative examination History of present illness: Mr. Quijano is a 60 year old male who was seen by multiple parking meter installer in the past but does not follow up as an outpatient. He has a history of a prior stroke with ruptured brain aneurysm requiring surgical repair in July 2010 at [facility] in [place] with residual left clawhand deformity and left hemiparesis. He also has a history of fibromyalgia, gastroesophageal reflux disease, hypercholesterolemia, ETOH liver disease. He drinks about a pint of whiskey daily. He resides at home with his Stacey Brennan from whom much of the history is obtained. He presented to the emergency department on 07/24/16 with altered mental status. He was found to have hepatic encephalopathy, hyptension, hypokalemia, pancytopenia, acute renal failure, and elevated troponin. His reports prior to admission he had no alcohol since last and had been taking excessive amounts of ibuprofen, up to 2000mg daily. He had also not been taking his medications, eating, or drinking in the past several days prior to admission. GI was consulted due to melena and hematochezia. He was planned for EGD today but this was cancelled due to elevated troponin. We were consulted by anesthesia to evaluate the patient prior to EGD. Mr. Quijano has been seen in consultation by Dr. Gaines and Dr. Quiroz in the past and underwent nuclear stress testing on 07/23/15 which was found to be clinically and electropcardiographically negative. He also had an echocardiogram done 07/23/15 which revealed ejection fraction of 60%, grade I/IV diastolic dysfunction with abnormal relaxation filling pattern, mildly enlarged right and left atriums, no mitral regurgitation, aortic valve sclerosis, no aortic regurgitation, mild tricuspid regurgitation, PAP 35 mmHg. He was previously admitted in January 2016 with non-cardiac chest pain and Lexiscan was recommended. He wished for this to be done outpatient, but did not follow up. Lab work is as follows: WBC 2.8, RBC 2.75, HGB 9.7, HCT 25.9, Potassium 2.7 (up from 1.8 on admission), BUN 26 (down from 50), Creatinine 1.3 (down from 2.1), AST 493, ALT 110. Ammonia level is down to 142 from 171. Mr. Quijano has presented to the emergency room on two separate occasions this month for various complaints. At previous admission his alcohol level was noted to be 192. On 07/11/16 troponin was noted to be 0.085 with normal CK-MB. EKG is unremarkable. His notes he has not complained of recent chest pain or shortness of breath. When asked if he had any chest pain, he mumbles "yes" but will not state when. When questioned further by his , he mumbles "when I had my stroke." This was in 2010. CC: Madison Miller MD - Home Medications and Allergies Home Medications: Home Medications Medication Instructions Recorded Confirmed Type Multivitamin [Multivitamins] 1 each PO DAILY #30 tablet 12/21/15 07/24/16 Rx Thiamine Tab [Vitamin B1 Tab] 100 mg PO DAILY #30 tablet 12/21/15 07/24/16 Rx hydroCHLOROthiazide 25 mg PO DAILY #30 tablet 12/21/15 07/24/16 Rx [Hydrochlorothiazide] Metoprolol Tartrate Tab [Lopressor 50 mg PO BID 01/05/16 07/24/16 History Tab] Potassium Chloride Cap/Tab [K Dur] 20 meq PO BID #14 tablet 07/11/16 07/24/16 Rx Allergies/Adverse Reactions: Allergies Allergy/AdvReac Type Severity Reaction Status Date / Time aspirin Allergy Mild Unknown/Unable Verified 07/24/16 16:37 to obtain lisinopril Allergy Unknown/Unable Verified 07/24/16 16:37 to obtain ROS unobtainable: due to encephalopathy 12 point system: reviewed and no additional remarkable complaints except as stated Medical,Surgical,& Family Hx - Medical History Cardio: History of: Cardiac Dysrhythmia (hx of afib not on anticoagulation), Hypertension Psychological: History of: Psychiatric/Substance Abuse Tx (ALCHOLISM he reports that he drinks at least a fifth a day. drinks all day) Neurology: History of: Brain Aneurysm, Cerebrovascular Accident (2010) HEENT: History of: Dental Problems (poor dentition) Rheumatology: History of;: Rheumatoid Arthritis Gastrointestinal: History of: GERD, Pancreatitis, GI Problems (alcoholic cirrhosis) Musculoskeletal: History of: Musculoskeletal Problems (L SIDED WEAKNESS/ L UPPER EXT CONTRACTURE.) Hematology: History of: Anemia No history of: Blood Transfusion Reaction Other: History of: Miscellaneous Medical Problems (vein problems) No history of: Anesthesia Reactions - Surgical History Neurologic Surgeries: Surgical HX of: Brain Aneurysm Patient denies: Neurologic Surgery Abdominal Surgeries: Surgical HX of: Abdominal Surgery, Cholecystectomy, Colonoscopy, EGD, Hernia Repair - Family History Family History: Reports;: Family Cancer, Family Diabetes, Family Heart Disease, Family Hypertension, Family Stroke - Social History Smoking Status: Never smoker Frequency of Alcohol Use: Frequently Type of Drug Use: Unknown Physical Examination Vital Signs Temp Pulse Resp BP Pulse Ox 97.9 F 96 H 20 100/63 96 07/24/16 16:30 07/24/16 16:30 07/24/16 16:30 07/24/16 16:30 07/24/16 16:30 General: Present: Other (Appears chronically ill and debilitated, looks older than stated age) HEENT: Present: Normocephaly, Mucus Membranes Moist, Other (Numerous dental caries and partially edentulous ) Neck: Present: Supple Neck, Midline Trachea, No Masses Cardiac: Present: Reg Rate and Rhythm, No Murmur Lungs: Present: Normal Breath Sounds, No Wheeze, Rales, Rhonchi Neuro: Present: Weakness (left sided hemiparesis with left clawhand deformity). Absent: Resting Tremor, Essential Tremor Abdomen: Present: Soft, Active Bowel Sounds Skin: Present: Clear. Absent: Rash Musculoskeletal: Present: Decreased Range of Motion (bedbound, has left sided hemiparesis), No Fluid Collection, No Pain Gait: Present: Poor Gait (bedbound at home, uses wheelchair, has left sided hemiparesis) Extremities: Present: No Clubbing, No Cyanosis, Normal Upper Extr. Pulses, Normal Lower Extr. Pulses, Edema (trace to BLE) Result/EKG - Labs CBC & BMP: 07/26/16 08:43 07/26/16 05:39 Lab Results: I have reviewed the past 24 hour labs Labs: Laboratory Results - last 24 hr 07/25/16 07/25/16 07/25/16 14:25 14:28 16:02 WBC RBC Hgb 10.3 L Hct 27.3 L MCV MCH MCHC RDW Plt Count MPV Neut % (Auto) Lymph % (Auto) [place] % (Auto) Eos % (Auto) Baso % (Auto) Neut # (Auto) Lymph # (Auto) [place] # (Auto) Eos # (Auto) Baso # (Auto) Total Counted Immature Gran % Nucleated RBC % Immature Gran # Segmented Neutrophils Band Neutrophils Lymphocytes Monocytes Basophils Nucleated RBCs Nucleated RBCs # Platelet Estimate Hypochromasia Elliptocytes Morphology Comment Sodium 147 H Potassium 2.4 L* Chloride 113 H Carbon Dioxide 18 L Anion Gap 18.4 H BUN 36 H D Creatinine 1.50 H GFR Calculation 62 BUN/Creatinine Ratio 24.00 H Glucose 127 H POC Glucose 128 H Calculated Osmolality 301.4 Calcium 8.3 L Magnesium 2.5 H Total Bilirubin AST ALT Alkaline Phosphatase Ammonia Total Protein Albumin Globulin Albumin/Globulin Ratio Urine Color Urine Appearance Urine pH Ur Specific [place] Urine Protein Urine Glucose (UA) Urine Ketones Urine Blood Urine Nitrate Urine Bilirubin Urine Urobilinogen Urine Leukocytes Urine RBC Urine WBC Ur Squamous Epith Cells Ur Culture Indicated? 07/25/16 07/26/16 07/26/16 20:26 01:00 05:39 WBC RBC Hgb 10.1 L Hct 27.3 L MCV MCH MCHC RDW Plt Count MPV Neut % (Auto) Lymph % (Auto) [place] % (Auto) Eos % (Auto) Baso % (Auto) Neut # (Auto) Lymph # (Auto) [place] # (Auto) Eos # (Auto) Baso # (Auto) Total Counted Immature Gran % Nucleated RBC % Immature Gran # Segmented Neutrophils Band Neutrophils Lymphocytes Monocytes Basophils Nucleated RBCs Nucleated RBCs # Platelet Estimate Hypochromasia Elliptocytes Morphology Comment Sodium 145 Potassium 2.7 L Chloride 113 H Carbon Dioxide 18 L Anion Gap 16.7 H BUN 26 H D Creatinine 1.30 GFR Calculation 74 BUN/Creatinine Ratio 20.00 Glucose 109 H POC Glucose Calculated Osmolality 293.7 Calcium 8.1 L Magnesium Total Bilirubin 3.70 H AST 493 H ALT 110 H Alkaline Phosphatase 75 Ammonia Total Protein 5.8 L Albumin 2.4 L Globulin 3.4 Albumin/Globulin Ratio 0.7 L Urine Color Yellow Urine Appearance Clear Urine pH 6.0 Ur Specific [place] 1.012 Urine Protein Negative Urine Glucose (UA) Negative Urine Ketones Negative Urine Blood Negative Urine Nitrate Negative Urine Bilirubin Negative Urine Urobilinogen 2.0 H Urine Leukocytes Negative Urine RBC 1 Urine WBC 2 Ur Squamous Epith Cells Occasional Ur Culture Indicated? Not indicated 07/26/16 07/26/16 07/26/16 05:39 08:43 08:43 WBC 2.8 L RBC 2.75 L Hgb 10.1 L 9.7 L Hct 27.3 L 25.9 L MCV 94.2 MCH 35 H MCHC 37.5 H RDW 14.6 Plt Count 95 L MPV 10.3 Neut % (Auto) 53.4 Lymph % (Auto) 26.4 [place] % (Auto) 16.3 H Eos % (Auto) 1.4 Baso % (Auto) 1.1 H Neut # (Auto) 1.5 Lymph # (Auto) 0.7 L [place] # (Auto) 0.5 Eos # (Auto) 0.0 Baso # (Auto) 0.0 Total Counted 100 Immature Gran % 1.4 Nucleated RBC % 1.4 Immature Gran # 0.04 Segmented Neutrophils 54 Band Neutrophils 2 Lymphocytes 35 Monocytes 8 Basophils 1.0 H Nucleated RBCs 1 Nucleated RBCs # 0.04 Platelet Estimate Decreased Hypochromasia 1+ Elliptocytes Few Morphology Comment Sodium Potassium Chloride Carbon Dioxide Anion Gap BUN Creatinine GFR Calculation BUN/Creatinine Ratio Glucose POC Glucose Calculated Osmolality Calcium Magnesium Total Bilirubin AST ALT Alkaline Phosphatase Ammonia 142 H Total Protein Albumin Globulin Albumin/Globulin Ratio Urine Color Urine Appearance Urine pH Ur Specific [place] Urine Protein Urine Glucose (UA) Urine Ketones Urine Blood Urine Nitrate Urine Bilirubin Urine Urobilinogen Urine Leukocytes Urine RBC Urine WBC Ur Squamous Epith Cells Ur Culture Indicated? - EKG EKG results: interpreted by me, sinus rhythm Ledy Mcdaniel Attila, MD, personally performed the services described in this documentation, ascribed by Katie Huggins RN in my presence, and it is both accurate and complete [id number] .
[2016-07-26 13:23] LABS: Hematocrit 27.8 VOL% (42.0-52.0); Hemoglobin 10.2 GM/DL (14.0-18.0)
--- NOTE | 2016-07-26 13:34 | ECHO Report ---
Shan Quijano Exam Date: 07/26/2016 12:34 Referring Physician: Technologist: Khang GILMAN Age: 60 Ht (in): Wt (lb): Gender: M Exam Location: [facility] Echo Indications: elevated troponin, hypotensive, UGIB, acute renal failure BP: / HR: Rhythm: Sinus Technical Quality: IMPRESSIONS Normal left ventricular size, with mild concentric hypertrophy. Normal systolic function, left ventricular ejection fraction is estimated at 60 %. Grade 1 diastolic dysfunction. Mild mitral and tricuspid regurgitation. MEASUREMENTS (Male / Female) Normal Values 2D ECHO LV Diastolic Diameter PLAX 4.3 cm 4.2 - 5.9 / 3.9 - 5.3 cm LV Systolic Diameter PLAX 3.3 cm LV Fractional Shortening PLAX 22.8 % IVS Diastolic Thickness 1.5 cm 0.6 - 1.0 / 0.6 - 0.9 cm LVPW Diastolic Thickness 1.3 cm 0.6 - 1.0 / 0.6 - 0.9 cm RV Internal Dim ED PLAX 2.5 cm Aortic Root Diameter 2.7 cm LA Systolic Diameter LX 3.0 cm 3.0 - 4.0 / 2.7 - 3.8 cm DOPPLER TR Peak Velocity 221.0 cm/s TR Peak Gradient 19.5 mmHg FINDINGS Left Ventricle Normal left ventricular size, with mild concentric hypertrophy. Normal systolic function, left ventricular ejection fraction is estimated at 60 %. Grade 1 diastolic dysfunction. Right Ventricle Normal right ventricular size and systolic function. Right Atrium Normal right atrial size. Left Atrium Normal left atrial size. Mitral Valve Structurally normal mitral valve with mild insufficiency. Aortic Valve Structurally normal aortic valve, without stenosis or insufficiency. Tricuspid Valve Morphologically normal tricuspid valve. Mild tricuspid valve regurgitation. Tricuspid regurgitation velocities suggest a PAP of 19.5 mmHg + RAP. Pulmonic Valve Morphologically normal pulmonic valve. Pericardium No pericardial effusion. Aorta Normal size aortic root and proximal ascending aorta. Emanuel Villafana (Electronically Signed) Final Date: 26 July 2016 13:33
[2016-07-26] MEDS: POTASSIUM CHLORIDE RIDER 10 MEQ in PREMIX 1 EACH IV PRN ×4 (15:47→21:00)
--- NOTE | 2016-07-26 17:54 | XRay Report ---
Exam: XR chest 1V portable Indication: Esophagogastric tube placement Comparison study: 07/24/2016 Findings: Esophagogastric tube is noted within the upper thorax looped and the tip is directed cephalad terminating at the C7-T1 level. Repositioning is required. The heart, mediastinum and bony structures are otherwise stable from prior. Impression: Esophagogastric tube loops in the mid esophagus and should be repositioned. Otherwise, no significant change. Critical findings discussed with patient's nurse, Pamella, via telephone 5:51 PM on the day of the examination. PROCEDURE INTERPRETED AT [facility] DEPARTMENT OF RADIOLOGY Final Report Signed by: Jeanmarie Lange
--- NOTE | 2016-07-26 21:32 | Gastrointestinal Progress Note ---
Assessment and Plan (1) UGIB (upper gastrointestinal bleed) Status: Acute Assessment and plan: Patient appears stable today with no further bleeding. EGD postponed due to persistent hypokalemia which is being corrected. Cardiology is also seeing. Would plan EGD tomorrow if hypokalemia corrected and cardiology clears him. However, patient states that he may not consent to have this done. He states that he wants to take milk thistle to "heal his liver" instead. Continue serial hemoglobins and octreotide for now. Current Visit: Yes Gastroenterology - PN: Subj Interval history: EGD postponed due to persistent hypokalemia and cardiology consulted for elevated troponin levels. He has not had active bleeding today. Patient is much more alert today. Exam (Progress Note) - Constitutional Vitals: Period Temp Pulse Resp BP Sys/Newton Pulse Ox Last 24 Hr 98.3 F-98.9 F 61-79 12-20 70-112/42-84 100-100 General appearance: no acute distress - Head Head exam: Present: normocephalic, atraumatic - Respiratory Respiratory exam: Present: clear to auscultation bilaterally - Cardiovascular Cardiovascular exam: Present: regular rate and rhythm - GI/Abdominal GI/Abdominal exam: Present: normal bowel sounds, soft. Absent: tenderness - Neurological Exam Neurological exam: Present: alert. Absent: motor sensory deficit - Psychiatric Psychiatric exam: Present: agitated - Skin Skin exam: Present: warm, dry Results - Labs CBC & BMP: 07/26/16 13:14 07/26/16 13:14 Lab Results: I have reviewed the past 24 hour labs
[2016-07-26] MEDS ORDERED: OCTREOTIDE 100 MCG/ML SYRINGE IV ONE (21:33)
[2016-07-26] MEDS ORDERED: OCTREOTIDE 100 MCG/ML SYRINGE ONE (23:06)
[2016-07-26] MEDS: OCTREOTIDE 1,250 MCG in SODIUM CHLORIDE 0.9% 247.5 ML IV SCH (23:22)
[2016-07-27] MEDS: POTASSIUM CHLORIDE RIDER 10 MEQ in PREMIX 1 EACH IV PRN ×10 (00:02→23:46)
[2016-07-27] MEDS: POTASSIUM CHLORIDE INJ 10 MEQ in DEXTROSE 5% 1,000 ML IV SCH ×3 (01:53→17:51)
[2016-07-27] MEDS: LORazepam 2 MG/1 ML VIAL IV PRN (02:52)
[2016-07-27] MEDS: LACTULOSE 20 GM/30 ML UDCUP PO SCH ×6 (04:57→21:35)
[2016-07-27 05:56] LABS: Eosinophils # 0.1 10*3/uL (0.0-0.87); Hematocrit 28.2 VOL% (42.0-52.0); Hemoglobin 10.5 GM/DL (14.0-18.0); Immature Granulocytes Absolute 0.06 #; Lymphocytes % 35.4 % (21.2-54.2); Mean Corpuscular HGB Conc 37.2 GM/DL (32-36); Mean Corpuscular Hemoglobin 36 PG (27-34); Mean Corpuscular Volume 95.3 FL (87-102); Mean Platelet Volume 10.9 FL (9.6-12.0); Monocytes # 0.4 10*3/uL (0.11-0.8); Monocytes % 14.3 % (1.7-12.7); NRBC # 0.05 10*3/uL; Neutrophils # 1.3 10*3/uL (1.4-7.4); Neutrophils % 45.3 % (38.7-73.9); Platelet Count 100 T/CUMM (130-400); Red Blood Count 2.96 MC/CUMM (3.8-5.5); Red Cell Distribution Width 14.9 % (9.3-17.3); White Blood Count 2.9 T/CUMM (4-12)
[2016-07-27 06:17] LABS: Burr Cells Slight; Hypochromasia 1+; Platelet Estimate Decreased
[2016-07-27 06:20] LABS: Albumin 2.4 G/DL (3.4-5.0); Bilirubin,Total 3.3 MG/DL (0.2-1.0); Osmolality,Calculated 281.7 MOS/KG (273-304); Potassium 2.8 MMOL/L (3.5-5.1); Total Protein 5.9 G/DL (6.4-8.3)
[2016-07-27 06:34] LABS: Calcium 8.2 MG/DL (8.5-10.1); Magnesium 1.6 MG/DL (1.8-2.4); Potassium 2.8 MMOL/L (3.5-5.1)
--- NOTE | 2016-07-27 07:48 | Cardiology Progress Note ---
Assessment and Plan (1) Elevated troponin Status: Acute Assessment and plan: 60 y/o BM, h/o of ETOH cirrhosis, hepatic encephalopathy, HTN, prior CVA c left hemiparesis, fibromyalgia, GERD, hypercholesterolemia. Presents with AMS, pancytopenia, ETOH abuse, hypotension, hypokalemia, elevated troponin. Susp UGIB , EGD planned -Hypokalemia. Still severe despite repletion via peripheral iv. If po or NGT intake not feasible, recommend to proceed with a central line. I suggest to replete around 100 mEq K today. Mg normal, cont 2g iv daily -Chronic mild elev of troponin, with normal CPK MB. Normal systolic function on echo. No further workup is needed -Keep on telemetry, recheck ECG when electrolyte abnorm resolves to confirm transient cause of QTc prolongation -More awake but still obtunded today. High risk for DT. Ativan prn. Avoid antipsychotics with QTc effects Current Visit: Yes (2) Acute renal failure Status: Acute Current Visit: Yes (3) Alcoholic hepatitis Status: Acute Current Visit: Yes (4) Cirrhosis Status: Acute Current Visit: Yes (5) Hepatic encephalopathy Status: Acute Current Visit: Yes (6) Hypokalemia Status: Acute Current Visit: Yes (7) Hypotension Status: Acute Current Visit: Yes (8) Melena Status: Acute Current Visit: Yes (9) Pancytopenia Status: Acute Current Visit: Yes (10) UGIB (upper gastrointestinal bleed) Status: Acute Current Visit: Yes (11) UTI (urinary tract infection) Status: Acute Current Visit: Yes (12) CVA, old, hemiparesis Status: Chronic Current Visit: No Cardiology - PN: Subj Interval history: He is still severely hypokalemic. Got 50 mEqK, peripheral iv. Sinus rhythm, sinus tachycardia with occasional ventricular ectopy. No sustained arrhythmia so far. Exam (Progress Note) - Constitutional Vitals: Period Temp Pulse Resp BP Sys/Newton Pulse Ox Last 24 Hr 97.3 F-98.5 F 60-86 12-20 70-118/42-91 100-100 General appearance: normal weight - Head Head exam: Present: normal inspection - Eye Eye exam: Absent: conjunctival injection Pupils: Absent: dilated - ENT ENT exam: Present: normal external ear exam - Neck Neck exam: Present: normal inspection - Respiratory Respiratory exam: Present: clear to auscultation bilaterally - Cardiovascular Cardiovascular exam: Present: regular rate and rhythm - GI/Abdominal GI/Abdominal exam: Present: hypoactive bowel sounds - Extremities Exam Extremities exam: Present: normal inspection, normal capillary refill. Absent: edema - Neurological Exam Neurological exam: Present: alert, altered - Psychiatric Psychiatric exam: Present: normal affect, normal mood - Skin Skin exam: Present: normal color, warm. Absent: cyanosis Result/EKG - Labs CBC & BMP: 07/27/16 04:48 07/27/16 04:48 Lab Results: I have reviewed the past 24 hour labs Labs: Laboratory Results - last 24 hr 07/26/16 07/26/16 07/26/16 08:43 08:43 13:14 WBC 2.8 L RBC 2.75 L Hgb 9.7 L 10.2 L Hct 25.9 L 27.8 L MCV 94.2 MCH 35 H MCHC 37.5 H RDW 14.6 Plt Count 95 L MPV 10.3 Neut % (Auto) 53.4 Lymph % (Auto) 26.4 [place] % (Auto) 16.3 H Eos % (Auto) 1.4 Baso % (Auto) 1.1 H Neut # (Auto) 1.5 Lymph # (Auto) 0.7 L [place] # (Auto) 0.5 Eos # (Auto) 0.0 Baso # (Auto) 0.0 Total Counted 100 Immature Gran % 1.4 Nucleated RBC % 1.4 Immature Gran # 0.04 Segmented Neutrophils 54 Band Neutrophils 2 Lymphocytes 35 Monocytes 8 Basophils 1.0 H Nucleated RBCs 1 Nucleated RBCs # 0.04 Platelet Estimate Decreased Hypochromasia 1+ Hal Cells Elliptocytes Few Morphology Comment Sodium Potassium Chloride Carbon Dioxide Anion Gap BUN Creatinine GFR Calculation BUN/Creatinine Ratio Glucose Calculated Osmolality Calcium Magnesium Total Bilirubin AST ALT Alkaline Phosphatase Ammonia 142 H Total Protein Albumin Globulin Albumin/Globulin Ratio 07/26/16 07/26/16 07/27/16 13:14 13:14 04:48 WBC 2.9 L RBC 2.96 L Hgb 10.5 L Hct 28.2 L MCV 95.3 MCH 36 H MCHC 37.2 H RDW 14.9 Plt Count 100 L MPV 10.9 Neut % (Auto) 45.3 Lymph % (Auto) 35.4 [place] % (Auto) 14.3 H Eos % (Auto) 2.0 Baso % (Auto) 1.0 H Neut # (Auto) 1.3 L Lymph # (Auto) 1.0 L [place] # (Auto) 0.4 Eos # (Auto) 0.1 Baso # (Auto) 0.0 Total Counted Immature Gran % 2.0 Nucleated RBC % 1.7 Immature Gran # 0.06 Segmented Neutrophils Band Neutrophils Lymphocytes Monocytes Basophils Nucleated RBCs Nucleated RBCs # 0.05 Platelet Estimate Decreased Hypochromasia 1+ [place] Cells Slight Elliptocytes Morphology Comment Sodium Potassium 2.8 L Chloride Carbon Dioxide Anion Gap BUN Creatinine GFR Calculation BUN/Creatinine Ratio Glucose Calculated Osmolality Calcium Magnesium 1.9 Total Bilirubin AST ALT Alkaline Phosphatase Ammonia Total Protein Albumin Globulin Albumin/Globulin Ratio 07/27/16 07/27/16 07/27/16 04:48 04:48 04:48 WBC RBC Hgb Hct MCV MCH MCHC RDW Plt Count MPV Neut % (Auto) Lymph % (Auto) [place] % (Auto) Eos % (Auto) Baso % (Auto) Neut # (Auto) Lymph # (Auto) [place] # (Auto) Eos # (Auto) Baso # (Auto) Total Counted Immature Gran % Nucleated RBC % Immature Gran # Segmented Neutrophils Band Neutrophils Lymphocytes Monocytes Basophils Nucleated RBCs Nucleated RBCs # Platelet Estimate Hypochromasia Hal Cells Elliptocytes Morphology Comment Sodium 138 136 Potassium 2.8 L 2.8 L 2.8 L Chloride 105 104 Carbon Dioxide 17 L 18 L Anion Gap 18.8 H 16.8 H BUN 15 D 15 Creatinine 1.10 1.10 GFR Calculation 91 91 BUN/Creatinine Ratio 13.00 13.00 Glucose 199 H 200 H Calculated Osmolality 281.7 278.0 Calcium 8.0 L 8.2 L Magnesium 1.6 L Total Bilirubin 3.30 H AST 471 H ALT 117 H Alkaline Phosphatase 78 Ammonia Total Protein 5.9 L Albumin 2.4 L Globulin 3.5 Albumin/Globulin Ratio 0.6 L - EKG EKG results: interpreted by me
--- NOTE | 2016-07-27 08:41 | Hospitalist Progress Note ---
Assessment and Plan (1) Hepatic encephalopathy Status: Acute Assessment and plan: He presented when ammonia level of 170 when asked down to 157 he is more alert we'll continue with the scheduled lactulose. Per the patient he states that he has stopped drinking however per the records on presentation Y stated that he had no desire to stop drinking. Overall he is a very or prognosis given his cirrhosis with pancytopenia and continued alcohol consumption. 07/26/16: he still hasn't had many bowel movements and his ammonia level is still elevated. I will increase lactulose to 40 mg Q4, repeat ammonia in the am 07/27/16: Patient had several large bowel movements overnight after increasing his Cardiolite will repeat ammonia level. He is asleep during my exam but it appears that he is becoming more alert at times but still with some confusion. Current Visit: Yes (2) Pancytopenia Status: Acute Assessment and plan: likely chronic but could be related to underlying sepsis. I do feel like his platelet count runs low because of his underlying cirrhosis. Current Visit: Yes (3) Hypotension Status: Acute Assessment and plan: He is still somewhat hypotensive we'll continue with IV hydration clinically he appears to be dehydrated. 07/27/16: Blood pressure is better now continue to monitor closely Current Visit: Yes (4) UTI (urinary tract infection) Status: Acute Assessment and plan: This urinary tract infection could also be contributing to his encephalopathy. He has been currently placed on Rocephin which I do agree with continuing until final cultures and sensitivities 07/26/16: E coli but about 1,000 also gram positive cocci, continue with Rocephin until final culture Current Visit: Yes (5) Elevated troponin Status: Chronic Assessment and plan: likely some demand ischemia given he was hypotensive on presentation. He is more alert and denies any chest pain. Given his CHANDRAKANT, hypokalemia and encephalopathy undoubtedly cardiology would do any type of intervention at this point. Maybe once he's more stable from a medical standpoint we can obtain a consultation to see if any further invasive evaluation is needed. Current Visit: No (6) Hypokalemia Status: Acute Assessment and plan: this is improving with replacement of his potassium 07/26/16: continue to replete 07/27/16: His potassium is slowly increasing her goal is to continue to replete until it is normalized. Current Visit: No (7) Alcoholic hepatitis Status: Acute Current Visit: Yes (8) Cirrhosis Status: Chronic Current Visit: Yes Qualifiers: Hepatic cirrhosis type: alcoholic cirrhosis (9) UGIB (upper gastrointestinal bleed) Status: Acute Assessment and plan: he was found to have dark stools. likely from with PUD, or varices. GI will do EGD today 07/27/16: There's been no more noted blood H&H is remaining fairly stable. He is currently on octreotide and proton pump inhibitor which will continue. Plans for him to have an upper endoscopy what's we repleted his electrolytes. Current Visit: Yes Hospitalist: Subjective Interval history: 10-year-old male with alcohol abuse for years now has alcoholic cirrhosis who presented with altered mental status and found to have hepatic encephalopathy. He now has intermittent periods where he is alert but still confused at times. After increasing his Chronulac on yesterday it was reported that he had several large bowel movements overnight. His potassium is still low we'll continue to repleted. Also a suspect of having upper GI bleed he is currently receiving octreotide and PPI inhibitor. He is scheduled for EGD once his electrolytes have been repleted. Exam - Constitutional Vitals: Period Temp Pulse Resp BP Sys/Newton Pulse Ox Last 24 Hr 97.3 F-98.5 F 60-86 11-20 70-118/42-91 100-100 Exam: ill appearing male who also looks older than his stated age - Head Head exam: Present: normocephalic, atraumatic - Eye Eye exam: Present: EOMI Pupils: Present: SOBEIDA - Respiratory Respiratory exam: Present: clear to auscultation bilaterally - Cardiovascular Cardiovascular exam: Present: regular rate and rhythm - GI/Abdominal GI/Abdominal exam: Present: normal bowel sounds, soft - Extremities Exam Extremities exam: Present: full ROM - Skin Skin exam: Present: warm, intact Results - Labs CBC & BMP: 07/27/16 04:48 07/27/16 04:48
[2016-07-27] MEDS: OXAZEPAM 10 MG CAPSULE PO SCH ×3 (09:08→21:35)
[2016-07-27] MEDS: FOLIC ACID 1 MG TABLET PO SCH (09:13)
[2016-07-27] MEDS: PANTOPRAZOLE 40 MG VIAL IV SCH ×2 (09:18→21:23)
[2016-07-27] MEDS: THIAMINE 200 MG/2 ML VIAL IV SCH (09:19)
[2016-07-27] MEDS: MORPHINE 2 MG/1 ML SYRINGE IV PRN (11:19)
--- NOTE | 2016-07-27 12:58 | Gastrointestinal Progress Note ---
Assessment and Plan (1) Melena Status: Acute Assessment and plan: 07/27-EGD postponed due to low potassium. Hgb holding at 10.5. No overt bleeding at present. Recheck potassium tomorrow and proceed with EGD if improved. Plan and addendum to follow by Dr Loco.d 07/25-Findings of melena, and some hematochezia with stool. No prior (known) history of GI bleed in past. Hgb 10.3, with most recent baseline 11-12. Report of dark tarry stools with bright red blood by nursing staff today. Monitor serial HH. Change from Pepcid to Protonix IV and continue to monitor his pancytopenia. Plan and addendum to follow by Dr Nathan. Current Visit: Yes Gastroenterology - PN: Subj Interval history: CC: Anemia Pt is seen, somewhat more alert today. He is very slow to respond and falls asleep during visit. He denies any pain at present time. NG was pulled out by patient and he refused to have this replaced. No reports today of bloody bowel movements. He was for EGD today however his potassium was too low to proceed. Pt is in agreement today to proceed on tomorrow if it improves. Abdomen is soft , nontender. ROS: Denies SOB or chest pain Exam (Progress Note) - Constitutional Vitals: Period Temp Pulse Resp BP Sys/Newton Pulse Ox Last 24 Hr 97.3 F-98.5 F 60-86 10-20 70-118/42-91 100-100 - Other Additional findings: General appearance: normal weight, no acute distress - Head Head exam: Present: normal inspection, normocephalic - Eye Eye exam: Present: other (lids and conjunctiva unremarkable). Absent: scleral icterus - ENT ENT exam: Present: normal exam, normal oropharynx - Neck Neck exam: Present: normal inspection - Respiratory Respiratory exam: Present: clear to auscultation bilaterally. Absent: rales, rhonchi, wheezes - Cardiovascular Cardiovascular exam: Present: regular rate and rhythm. Absent: diastolic murmur , JVD, systolic murmur - GI/Abdominal GI/Abdominal exam: Present: normal bowel sounds, soft. Absent: ascites, distended, mass, organomegaly, tenderness - Extremities Exam Extremities exam: Present: normal inspection - Back Exam Back exam: Present: normal inspection - Neurological Exam Neurological exam: Present: alert, other - Psychiatric Psychiatric exam: Present: agitated Results - Labs CBC & BMP: 07/27/16 04:48 07/27/16 04:48 Lab Results: I have reviewed the past 24 hour labs
[2016-07-27] MEDS: OCTREOTIDE 1,250 MCG in SODIUM CHLORIDE 0.9% 247.5 ML IV SCH (23:30)
[2016-07-28] MEDS: LACTULOSE 20 GM/30 ML UDCUP PO SCH ×7 (00:08→23:25)
[2016-07-28] MEDS: POTASSIUM CHLORIDE RIDER 10 MEQ in PREMIX 1 EACH IV PRN ×6 (00:53→08:05)
[2016-07-28] MEDS: POTASSIUM CHLORIDE INJ 10 MEQ in DEXTROSE 5% 1,000 ML IV SCH ×3 (01:42→18:37)
[2016-07-28 05:25] LABS: Basophils % 0.9 % (0.0-0.8); Eosinophils # 0.1 10*3/uL (0.0-0.87); Eosinophils % 2.7 % (0.00-10.9); Hemoglobin 9.9 GM/DL (14.0-18.0); Immature Granulocytes % 1.8 %; Immature Granulocytes Absolute 0.06 #; Mean Corpuscular HGB Conc 35.4 GM/DL (32-36); Mean Corpuscular Hemoglobin 35 PG (27-34); Mean Corpuscular Volume 97.6 FL (87-102); Mean Platelet Volume 10.9 FL (9.6-12.0); Monocytes # 0.4 10*3/uL (0.11-0.8); Monocytes % 10.4 % (1.7-12.7); NRBC # 0.02 10*3/uL; Neutrophils # 1.9 10*3/uL (1.4-7.4); Neutrophils % 55.2 % (38.7-73.9); Platelet Count 92 T/CUMM (130-400); Red Blood Count 2.87 MC/CUMM (3.8-5.5); Red Cell Distribution Width 14.6 % (9.3-17.3); White Blood Count 3.4 T/CUMM (4-12)
[2016-07-28 05:48] LABS: Albumin 2.4 G/DL (3.4-5.0); Bilirubin,Total 2.7 MG/DL (0.2-1.0); Calcium 8.4 MG/DL (8.5-10.1); Osmolality,Calculated 270.1 MOS/KG (273-304); Potassium 3.5 MMOL/L (3.5-5.1); Total Protein 5.5 G/DL (6.4-8.3)
[2016-07-28] MEDS: LORazepam 2 MG/1 ML VIAL IV PRN (05:51)
[2016-07-28 05:54] LABS: Calcium 8.4 MG/DL (8.5-10.1); Magnesium 1.6 MG/DL (1.8-2.4); Potassium 3.4 MMOL/L (3.5-5.1)
[2016-07-28 05:55] LABS: Lymphocytes 25 % (20-55); Platelet Estimate Decreased; Segmented Neutrophils 62 % (50-85); Total Cells Counted 100
[2016-07-28] MEDS: SKIN HEALING OINT (AQUAPHOR) 50 GM TUBE TOP PRN (07:05)
--- NOTE | 2016-07-28 07:34 | EKG Report ---
Stationary ECG Study [facility] Test Date: 07/28/2016 7:33:23 AM Pat Name: FERNIE KRAMER Department: Room: 106 Gender: M Wood Floor Refinisher: JON : 1955 Requested by: Edilma Villafana Order Number: [id number] Reading MD: EDILMA VILLAFANA Intervals [place] Rate: 85 P: 58 SC: 183 QRS: 72 QRSD: 86 T: 75 QT: 364 QTc: 406 Interpretive Statements SINUS RHYTHM WITH OCCASIONAL SUPRAVENTRICULAR PREMATURE COMPLEXES Electronically Signed On 07-28-16 23:12:29 MOTEL MANAGER by EDILMA VILLAFANA [email or web address]
--- NOTE | 2016-07-28 09:00 | Hospitalist Progress Note ---
Assessment and Plan (1) Hepatic encephalopathy Status: Acute Assessment and plan: He presented when ammonia level of 170 when asked down to 157 he is more alert we'll continue with the scheduled lactulose. Per the patient he states that he has stopped drinking however per the records on presentation Y stated that he had no desire to stop drinking. Overall he is a very or prognosis given his cirrhosis with pancytopenia and continued alcohol consumption. 07/26/16: he still hasn't had many bowel movements and his ammonia level is still elevated. I will increase lactulose to 40 mg Q4, repeat ammonia in the am 07/27/16: Patient had several large bowel movements overnight after increasing his Cardiolite will repeat ammonia level. He is asleep during my exam but it appears that he is becoming more alert at times but still with some confusion. 07/28/16: improving despite ammonia level still being elevated, continue with lactulose, also likely has some infectious component and I do feel he is responding to antibiotics Current Visit: Yes (2) Pancytopenia Status: Acute Assessment and plan: likely chronic but could be related to underlying sepsis. I do feel like his platelet count runs low because of his underlying cirrhosis. 07/28/16: his WBC is improving likely related to sepsis which is under control. He is still anemic and likely UGIB once we are able to obtain consent will go for EGD Current Visit: Yes (3) Hypotension Status: Acute Assessment and plan: He is still somewhat hypotensive we'll continue with IV hydration clinically he appears to be dehydrated. 07/27/16: Blood pressure is better now continue to monitor closely Current Visit: Yes (4) UTI (urinary tract infection) Status: Acute Assessment and plan: This urinary tract infection could also be contributing to his encephalopathy. He has been currently placed on Rocephin which I do agree with continuing until final cultures and sensitivities 07/26/16: E coli but about 1,000 also gram positive cocci, continue with Rocephin until final culture Current Visit: Yes (5) Elevated troponin Status: Chronic Assessment and plan: likely some demand ischemia given he was hypotensive on presentation. He is more alert and denies any chest pain. Given his CHANDRAKANT, hypokalemia and encephalopathy undoubtedly cardiology would do any type of intervention at this point. Maybe once he's more stable from a medical standpoint we can obtain a consultation to see if any further invasive evaluation is needed. Current Visit: No (6) Hypokalemia Status: Acute Assessment and plan: this is improving with replacement of his potassium 07/26/16: continue to replete 07/27/16: His potassium is slowly increasing her goal is to continue to replete until it is normalized. 07/28/16: better but still slightly low will continue to replete Current Visit: No (7) Alcoholic hepatitis Status: Acute Current Visit: Yes (8) Cirrhosis Status: Chronic Current Visit: Yes Qualifiers: Hepatic cirrhosis type: alcoholic cirrhosis (9) UGIB (upper gastrointestinal bleed) Status: Acute Assessment and plan: he was found to have dark stools. likely from with PUD, or varices. GI will do EGD today 07/27/16: There's been no more noted blood H&H is remaining fairly stable. He is currently on octreotide and proton pump inhibitor which will continue. Plans for him to have an upper endoscopy what's we repleted his electrolytes. Current Visit: Yes Hospitalist: Subjective Interval history: Mr. Quijano is a 60-year-old [place]gas[place] male with a history of alcohol abuse and alcohol cirrhosis who was admitted with altered mental status secondary to hepatic encephalopathy it appears that his mental status has improved despite not seeing his ammonia level go down as much as I would expect. I'm unsure of his baseline we do suspect he has an upper GI bleed but at this time I do not feel he is able to give consent. His vitals have now stabilized also. I feel like he can go to a monitored bed. Exam - Constitutional Vitals: Period Temp Pulse Resp BP Sys/Newton Pulse Ox Last 24 Hr 97.3 F-98.5 F 58-81 10-25 82-131/54-84 97-100 Exam: ill appearing male who also looks older than his stated age - Head Head exam: Present: normocephalic, atraumatic - Eye Eye exam: Present: EOMI Pupils: Present: SOBEIDA - ENT ENT exam: Present: other (poor dentition) - Respiratory Respiratory exam: Present: clear to auscultation bilaterally - Cardiovascular Cardiovascular exam: Present: regular rate and rhythm - GI/Abdominal GI/Abdominal exam: Present: normal bowel sounds, soft - Neurological Exam Neurological exam: Present: alert - Psychiatric Psychiatric exam: Present: normal affect, normal mood - Skin Skin exam: Present: warm, intact Results - Labs CBC & BMP: 07/28/16 05:17 07/28/16 05:17
[2016-07-28] MEDS: FOLIC ACID 1 MG TABLET PO SCH (11:31)
[2016-07-28] MEDS: OXAZEPAM 10 MG CAPSULE PO SCH ×3 (11:32→20:37)
[2016-07-28] MEDS: PANTOPRAZOLE 40 MG VIAL IV SCH ×2 (11:32→20:38)
[2016-07-28] MEDS: THIAMINE 200 MG/2 ML VIAL IV SCH (11:32)
--- NOTE | 2016-07-28 12:10 | Cardiology Progress Note ---
Raffy Mcdaniel Rachel, RN, am scribing for, and in the presence of, Emanuel Villafana MD 12:09. Assessment and Plan (1) Elevated troponin Status: Acute Assessment and plan: 60 y/o BM, h/o of ETOH cirrhosis, hepatic encephalopathy, HTN, prior CVA c left hemiparesis, fibromyalgia, GERD, hypercholesterolemia. Presents with AMS, pancytopenia, ETOH abuse, hypotension, hypokalemia, elevated troponin. Susp UGIB , EGD planned -Prolonged QTc. This was due to electrolyte changes. Now back to normal. Asymptomatic PACs and PVCs on telemetry. -Continue electrolyte repletion, follow BMP/Mg daily -Chronic mild elev of troponin, with normal CPK MB. Normal systolic function on echo. No further workup is needed -More awake but still obtunded today. High risk for DT. Ativan prn. Avoid antipsychotics with QTc effect -Will sign off, please call with further questions Current Visit: Yes (2) Acute renal failure Status: Acute Current Visit: Yes (3) Alcoholic hepatitis Status: Acute Current Visit: Yes (4) Cirrhosis Status: Acute Current Visit: Yes (5) Hepatic encephalopathy Status: Acute Current Visit: Yes (6) Hypokalemia Status: Acute Current Visit: Yes (7) Melena Status: Acute Current Visit: Yes (8) Pancytopenia Status: Acute Current Visit: Yes (9) UGIB (upper gastrointestinal bleed) Status: Acute Current Visit: Yes (10) UTI (urinary tract infection) Status: Acute Current Visit: Yes (11) CVA, old, hemiparesis Status: Chronic Current Visit: No Cardiology - PN: Subj Interval history: Patient was seen and examined in the ICU. He continues to refuse EGD at this time. He is being transferred to another floor later today. He is stable this morning and in no acute distress. Currently requiring oxygen at 2 L. Nurse reports that he has been without any overt bleeding. Potassium today is noted to be 3.4, this has been replaced today. Creatinine is stable today at 0.9. H& H is 9.9 and 28.0. Yesterday his ammonia level was noted to be 170, receiving lactulose. Exam (Progress Note) - Constitutional Vitals: Period Temp Pulse Resp BP Sys/Newton Pulse Ox Last 24 Hr 97.3 F-98.5 F 58-81 10-25 82-131/54-84 97-100 General appearance: normal weight, no acute distress - Head Head exam: Present: normal inspection, normocephalic, atraumatic - Eye Eye exam: Absent: conjunctival injection Pupils: Absent: dilated - Neck Neck exam: Present: normal inspection - Respiratory Respiratory exam: Present: clear to auscultation bilaterally. Absent: rales, rhonchi, stridor, wheezes - Cardiovascular Cardiovascular exam: Present: regular rate and rhythm. Absent: gallop, rubs, systolic murmur - GI/Abdominal GI/Abdominal exam: Present: hypoactive bowel sounds - Extremities Exam Extremities exam: Present: normal inspection, normal capillary refill. Absent: calf tenderness, edema - Neurological Exam Neurological exam: Present: alert, altered, other (slow speech) - Skin Skin exam: Present: normal color, warm, dry. Absent: cyanosis Result/EKG - Labs CBC & BMP: 07/28/16 05:17 07/28/16 05:17 Lab Results: I have reviewed the past 24 hour labs Labs: Laboratory Results - last 24 hr 07/27/16 07/27/16 07/28/16 13:57 23:10 05:17 WBC 3.4 L RBC 2.87 L Hgb 9.9 L Hct 28.0 L MCV 97.6 MCH 35 H MCHC 35.4 RDW 14.6 Plt Count 92 L MPV 10.9 Neut % (Auto) 55.2 Lymph % (Auto) 29.0 [place] % (Auto) 10.4 Eos % (Auto) 2.7 Baso % (Auto) 0.9 H Neut # (Auto) 1.9 Lymph # (Auto) 1.0 L [place] # (Auto) 0.4 Eos # (Auto) 0.1 Baso # (Auto) 0.0 Total Counted 100 Immature Gran % 1.8 Nucleated RBC % 0.6 Immature Gran # 0.06 Segmented Neutrophils 62 Lymphocytes 25 Monocytes 12 Basophils 1.0 H Nucleated RBCs # 0.02 Platelet Estimate Decreased Pappenheimer Bodies [employer] Appliance Prep[employer] Sodium Potassium 2.8 L 3.1 L Chloride Carbon Dioxide Anion Gap BUN Creatinine GFR Calculation BUN/Creatinine Ratio Glucose Calculated Osmolality Calcium Magnesium Total Bilirubin AST ALT Alkaline Phosphatase Total Protein Albumin Globulin Albumin/Globulin Ratio 07/28/16 07/28/16 05:17 05:17 WBC RBC Hgb Hct MCV MCH MCHC RDW Plt Count MPV Neut % (Auto) Lymph % (Auto) [place] % (Auto) Eos % (Auto) Baso % (Auto) Neut # (Auto) Lymph # (Auto) [place] # (Auto) Eos # (Auto) Baso # (Auto) Total Counted Immature Gran % Nucleated RBC % Immature Gran # Segmented Neutrophils Lymphocytes Monocytes Basophils Nucleated RBCs # Platelet Estimate Pappenheimer Bodies Sodium 135 L 136 Potassium 3.5 3.4 L Chloride 107 108 H Carbon Dioxide 15 L 16 L Anion Gap 16.5 H 15.4 H BUN 8 8 Creatinine 0.90 0.90 GFR Calculation 115 115 BUN/Creatinine Ratio 8.00 8.00 Glucose 149 H 153 H Calculated Osmolality 270.1 L 272.0 L Calcium 8.4 L 8.4 L Magnesium 1.6 L Total Bilirubin 2.70 H AST 385 H ALT 101 H Alkaline Phosphatase 74 Total Protein 5.5 L Albumin 2.4 L Globulin 3.1 Albumin/Globulin Ratio 0.7 L - EKG EKG results: interpreted by me ILedy Attila, MD, personally performed the services described in this documentation, ascribed by Johnna Akbar, NELDA in my presence, and it is both accurate and complete .
--- NOTE | 2016-07-28 12:28 | Gastrointestinal Progress Note ---
Assessment and Plan (1) Melena Status: Acute Assessment and plan: 07/28-Hgb 9.9, no overt bleeding. Potassium improved at 3.4. Pt agrees to proceed with EGD. Plan to do EGD tomorrow if pt remains stable. Plan and addendum to follow by Dr Nathan. 07/27-EGD postponed due to low potassium. Hgb holding at 10.5. No overt bleeding at present. Recheck potassium tomorrow and proceed with EGD if improved. Plan and addendum to follow by Dr Loco.d 07/25-Findings of melena, and some hematochezia with stool. No prior (known) history of GI bleed in past. Hgb 10.3, with most recent baseline 11-12. Report of dark tarry stools with bright red blood by nursing staff today. Monitor serial HH. Change from Pepcid to Protonix IV and continue to monitor his pancytopenia. Plan and addendum to follow by Dr Nathan. Current Visit: Yes Gastroenterology - PN: Subj Interval history: CC: Anemia Pt is awake and more alert today. He has not had any overt bleeding at this time. Hgb is stable at 9.9. Potassium is improved at 3.4. Abdomen is soft, nontender. He is tolerating a diet at present time. Will plan to proceed with EGD tomorrow if pt remains stable. ROS: Denies SOB or chest pain Exam (Progress Note) - Constitutional Vitals: Period Temp Pulse Resp BP Sys/Newton Pulse Ox Last 24 Hr 97.3 F-98.5 F 58-81 10-25 82-131/54-84 97-100 - Other Additional findings: General appearance: normal weight, no acute distress - Head Head exam: Present: normal inspection, normocephalic - Eye Eye exam: Present: other (lids and conjunctiva unremarkable). Absent: scleral icterus - ENT ENT exam: Present: normal exam, normal oropharynx - Neck Neck exam: Present: normal inspection - Respiratory Respiratory exam: Present: clear to auscultation bilaterally. Absent: rales, rhonchi, wheezes - Cardiovascular Cardiovascular exam: Present: regular rate and rhythm. Absent: diastolic murmur , JVD, systolic murmur - GI/Abdominal GI/Abdominal exam: Present: normal bowel sounds, soft. Absent: ascites, distended, mass, organomegaly, tenderness - Extremities Exam Extremities exam: Present: normal inspection - Back Exam Back exam: Present: normal inspection - Neurological Exam Neurological exam: Present: alert, other - Psychiatric Psychiatric exam: Present: agitated Results - Labs CBC & BMP: 07/28/16 05:17 07/28/16 05:17 Lab Results: I have reviewed the past 24 hour labs
[2016-07-28] MEDS: OCTREOTIDE 1,250 MCG in SODIUM CHLORIDE 0.9% 247.5 ML IV SCH (23:32)
[2016-07-29] MEDS: POTASSIUM CHLORIDE INJ 10 MEQ in DEXTROSE 5% 1,000 ML IV SCH ×2 (01:49→09:11)
[2016-07-29] MEDS: LACTULOSE 20 GM/30 ML UDCUP PO SCH ×4 (04:18→15:23)
[2016-07-29 05:09] LABS: Basophils % 0.6 % (0.0-0.8); Eosinophils # 0.1 10*3/uL (0.0-0.87); Eosinophils % 2.3 % (0.00-10.9); Hematocrit 27.6 VOL% (42.0-52.0); Hemoglobin 9.8 GM/DL (14.0-18.0); Immature Granulocytes % 1.9 %; Immature Granulocytes Absolute 0.06 #; Lymphocytes # 0.9 10*3/uL (1.4-4.0); Lymphocytes % 28.7 % (21.2-54.2); Mean Corpuscular HGB Conc 35.5 GM/DL (32-36); Mean Corpuscular Hemoglobin 35 PG (27-34); Mean Corpuscular Volume 98.2 FL (87-102); Mean Platelet Volume 11.2 FL (9.6-12.0); Monocytes # 0.5 10*3/uL (0.11-0.8); Monocytes % 14.5 % (1.7-12.7); Neutrophils # 1.6 10*3/uL (1.4-7.4); Red Blood Count 2.81 MC/CUMM (3.8-5.5); Red Cell Distribution Width 15.1 % (9.3-17.3); White Blood Count 3.1 T/CUMM (4-12)
[2016-07-29 05:12] LABS: Platelet Count 91 T/CUMM (130-400)
[2016-07-29 05:34] LABS: Platelet Estimate Adequate
[2016-07-29 05:35] LABS: Burr Cells Few
[2016-07-29 05:47] LABS: Calcium 8.3 MG/DL (8.5-10.1); Magnesium 1.6 MG/DL (1.8-2.4); Osmolality,Calculated 277.4 MOS/KG (273-304); Potassium 3.8 MMOL/L (3.5-5.1)
[2016-07-29] MEDS: OXAZEPAM 10 MG CAPSULE PO SCH ×2 (08:05→14:09)
[2016-07-29] MEDS: FOLIC ACID 1 MG TABLET PO SCH (08:05)
[2016-07-29] MEDS: THIAMINE 200 MG/2 ML VIAL IV SCH (09:10)
[2016-07-29] MEDS: PANTOPRAZOLE 40 MG VIAL IV SCH (09:10)
--- NOTE | 2016-07-29 09:26 | Hospitalist Progress Note ---
Assessment and Plan (1) Hepatic encephalopathy Status: Resolved Assessment and plan: He presented when ammonia level of 170 when asked down to 157 he is more alert we'll continue with the scheduled lactulose. Per the patient he states that he has stopped drinking however per the records on presentation Y stated that he had no desire to stop drinking. Overall he is a very or prognosis given his cirrhosis with pancytopenia and continued alcohol consumption. 07/26/16: he still hasn't had many bowel movements and his ammonia level is still elevated. I will increase lactulose to 40 mg Q4, repeat ammonia in the am 07/27/16: Patient had several large bowel movements overnight after increasing his Cardiolite will repeat ammonia level. He is asleep during my exam but it appears that he is becoming more alert at times but still with some confusion. 07/28/16: improving despite ammonia level still being elevated, continue with lactulose, also likely has some infectious component and I do feel he is responding to antibiotics Current Visit: Yes (2) Pancytopenia Status: Acute Assessment and plan: likely chronic but could be related to underlying sepsis. I do feel like his platelet count runs low because of his underlying cirrhosis. 07/28/16: his WBC is improving likely related to sepsis which is under control. He is still anemic and likely UGIB once we are able to obtain consent will go for EGD Current Visit: Yes (3) Hypotension Status: Resolved Assessment and plan: He is still somewhat hypotensive we'll continue with IV hydration clinically he appears to be dehydrated. 07/27/16: Blood pressure is better now continue to monitor closely Current Visit: Yes (4) UTI (urinary tract infection) Status: Acute Assessment and plan: This urinary tract infection could also be contributing to his encephalopathy. He has been currently placed on Rocephin which I do agree with continuing until final cultures and sensitivities 07/26/16: E coli but about 1,000 also gram positive cocci, continue with Rocephin until final culture 07/29/16:he had 6 days of IV abx so I will discontinue Current Visit: Yes (5) Elevated troponin Status: Chronic Assessment and plan: likely some demand ischemia given he was hypotensive on presentation. He is more alert and denies any chest pain. Given his CHANDRAKANT, hypokalemia and encephalopathy undoubtedly cardiology would do any type of intervention at this point. Maybe once he's more stable from a medical standpoint we can obtain a consultation to see if any further invasive evaluation is needed. Current Visit: No (6) Hypokalemia Status: Resolved Assessment and plan: this is improving with replacement of his potassium 07/26/16: continue to replete 07/27/16: His potassium is slowly increasing her goal is to continue to replete until it is normalized. 07/28/16: better but still slightly low will continue to replete Current Visit: No (7) Alcoholic hepatitis Status: Acute Current Visit: Yes (8) Cirrhosis Status: Chronic Current Visit: Yes Qualifiers: Hepatic cirrhosis type: alcoholic cirrhosis (9) UGIB (upper gastrointestinal bleed) Status: Acute Assessment and plan: he was found to have dark stools. likely from with PUD, or varices. GI will do EGD today 07/27/16: There's been no more noted blood H&H is remaining fairly stable. He is currently on octreotide and proton pump inhibitor which will continue. Plans for him to have an upper endoscopy what's we repleted his electrolytes. 07/29/16: going for EGD today Current Visit: Yes Hospitalist: Subjective Interval history: This is a 51 History of alcohol abuse with cirrhosis. Gallbladder no status. This is now resolved and has been treated for both headache and infectious encephalopathy. This morning he is complaining that he is hungry but he is scheduled for EGD today as he tested positive for occult blood. Exam - Constitutional Vitals: Period Temp Pulse Resp BP Sys/Newton Pulse Ox Last 24 Hr 97 F-98.3 F 69-78 11-18 104-127/59-75 99-100 General appearance: no acute distress - Head Head exam: Present: normocephalic, atraumatic - Eye Eye exam: Present: EOMI Pupils: Present: SOBEIDA - Respiratory Respiratory exam: Present: clear to auscultation bilaterally - Cardiovascular Cardiovascular exam: Present: regular rate and rhythm - GI/Abdominal GI/Abdominal exam: Present: normal bowel sounds, soft - Neurological Exam Neurological exam: Present: alert, oriented X3, CN II-XII intact - Psychiatric Psychiatric exam: Present: normal affect, normal mood - Skin Skin exam: Present: warm, intact Results - Labs CBC & BMP: 07/29/16 03:56 07/29/16 03:56
[2016-07-29] MEDS ORDERED: SODIUM BICARB INJ 50 MEQ in SODIUM CHLORIDE 0.45% 1,000 ML IV SCH (09:30)
--- NOTE | 2016-07-29 12:19 | History and Physical Update ---
History and Physical Update - Physical Exam Mental Status: alert and oriented Heart: regular rate and rhythm Lung: clear to auscultation Abdomen: within normal limits Vitals: within normal limits History and Physical Changes: 60-year-old male was admitted with upper GI bleeding with hematemesis. He has not required transfusion. He does have alcoholic cirrhosis.
--- NOTE | 2016-07-29 12:20 | Operative Note ---
Date of procedure: 07/29/16 Pre-op diagnosis: Hematemesis Procedure: Procedure: Esophagogastroduodenoscopy Brief clinical abstract: Patient is a 60-year-old male with alcoholic cirrhosis , clinical diagnosis, admitted with confusion and upper GI bleeding. He has not required transfusion. He had hematemesis initially. He has not had further bleeding noted since arrival. Indication for procedure: Hematemesis Endoscopic findings:[After informed consent was obtained, the patient was placed in the left lateral decubitus position. The gastroscope was inserted in the upper esophagus under direct vision with no resistance encountered. Esophageal mucosa appeared normal down to the squamocolumnar junction. No varices were seen. The endoscope was advanced in the stomach which was carefully examined including retroflexed view of the cardia and fundus there were several areas of subepithelial hemorrhage in the antrum that were circular and appeared to be likely sites of nasogastric tube trauma. I washed these areas and no significant bleeding stigmata were associated with these. No ulcers were seen in the stomach. No varices were noted. The pyloric channel, duodenal bulb, second and third portion of the duodenum appeared normal. The endoscope was removed and patient appeared to tolerate the procedure well. Impression: Multiple sites of subepithelial hemorrhage in gastric antrum- probably nasogastric tube trauma Recommendations: Advance diet. Could discharge home soon from GI bleeding standpoint. Anesthesia: MAC Surgeon / Physician: Chalo Nathan Estimated blood loss: minimal Specimens: none sent Condition: stable Disposition: post procedure unit Results - Labs CBC & BMP: 07/29/16 03:56 07/29/16 03:56 Discharge Plan - Discharge Medications No Action Multivitamin [Multivitamins] 1 each PO DAILY #30 tablet Thiamine Tab [Vitamin B1 Tab] 100 mg PO DAILY #30 tablet hydroCHLOROthiazide [Hydrochlorothiazide] 25 mg PO DAILY #30 tablet Metoprolol Tartrate Tab [Lopressor Tab] 50 mg PO BID Potassium Chloride Cap/Tab [K Dur] 20 meq PO BID #14 tablet - Follow Up or Referral - Forms/Instructions
--- NOTE | 2016-07-29 13:50 | Discharge Summary ---
Hospital Course - Hospital Course Hospital Course: Mr. Quijano is a 60-year-old male was brought in by EMS for altered mental status. It appears he has a history of alcohol abuse and has had a steady decline over the previous days prior to his admissions. On arrival patient was altered CT of the brain was negative for any acute findings. He was hypotensive and he was initially admitted to the intensive care unit. He had a leukopenia and also was found to be anemic. Because of his alcohol history and ammonia level was checked and it was around 170. Patient was given IV fluids and started on lactulose via NG tube. His blood pressure remained hypotensive he was given several boluses of normal saline. He did have some anemia on presentation but has not had to be transfused. There is a history of some drug blood per the nursing staff immediately test positive for occult blood. He also is how to be severely hypo-clinic with a potassium of around 1.8 this is been corrected with IV potassium then oral potassium supplements. Previously his mental status has improved as his ammonia level is down to 70. Gastric urology was consulted and he did have an EGD was no stigmata of bleeding was seen. Cardiology was consulted because he did have some arrhythmias seen on the monitor but it was felt like it was all related to his electrolytes as his magnesium was also low along with his potassium. His magnesium is also been repleted. He does have a clinical diagnosis of cirrhosis as he continues to drink 1-2 pints of whiskey per day. He has been Extensively on Alcohol Cessation. Mr. Quijano Is Now Ready to Be Discharged Home. He Will Follow-Up with His Primary Care Physicians. He Did Have Urine Cultures Return with 20-30, 000 Escherichia Coli and 100,000 Staphylococcus Warneri. Initially It Was [place] That He Was Also Septation Was Started on IV Rocephin. After Final Urine Cultures Return His Advice Was Tailored out and so Which She Is Tolerating. He did have a Complicated Urinary Tract Infection He Will Be Discharged Home on Additional Days of Macrobid. His Condition at Discharge Is Stable. - Time spent with patient Time with patient DS: Greater than 30 minutes Diagnosis - Discharge Diagnosis (1) Hepatic encephalopathy Status: Resolved (2) Pancytopenia Status: Resolved (3) Hypotension Status: Resolved (4) UTI (urinary tract infection) Status: Acute (5) Elevated troponin Status: Chronic (6) Hypokalemia Status: Resolved (7) Alcoholic hepatitis Status: Acute (8) Cirrhosis Status: Chronic (9) UGIB (upper gastrointestinal bleed) Status: Resolved Discharge Plan - Discharge Data Disposition: Disch To Home/Self Care Condition at Discharge: Stable Discharge Diet: advance to your usual diet Activity: resume usual activities as tolerated Contact your physician if you experience:: fever over 101, Bleeding - Discharge Medications New Nitrofurantoin Macro/[place]ood [Macrobid] 100 mg PO BID #10 capsule Pantoprazole Tab [Protonix Tab] 20 mg PO DAILY #30 tablet Lactulose 20 gm PO DAILY #120 ml Continue Multivitamin [Multivitamins] 1 each PO DAILY #30 tablet Thiamine Tab [Vitamin B1 Tab] 100 mg PO DAILY #30 tablet hydroCHLOROthiazide [Hydrochlorothiazide] 25 mg PO DAILY #30 tablet Metoprolol Tartrate Tab [Lopressor Tab] 50 mg PO BID Potassium Chloride Cap/Tab [K Dur] 20 meq PO BID #14 tablet - Follow Up or Referral - Forms/Instructions Additional Discharge Instructions: follow up with PCP in 5-7 days Exam - Constitutional Vitals: Period Temp Pulse Resp BP Sys/Newton Pulse Ox Last 24 Hr 96.8 F-98.3 F 69-99 11-18 93-127/54-75 99-100 General appearance: no acute distress - Head Head exam: Present: normocephalic, atraumatic - Eye Eye exam: Present: EOMI Pupils: Present: SOBEIDA - Respiratory Respiratory exam: Present: clear to auscultation bilaterally - Cardiovascular Cardiovascular exam: Present: regular rate and rhythm - GI/Abdominal GI/Abdominal exam: Present: normal bowel sounds, soft - Neurological Exam Neurological exam: Present: alert, oriented X3, CN II-XII intact - Psychiatric Psychiatric exam: Present: normal affect, normal mood - Skin Skin exam: Present: warm, intact Discharge Results Procedures and tests throughout hospitalization: Pending Orders 07/27/16 10:30 Occult Blood, Stool Routine 07/30/16 04:00 Basic Metabolic Panel w/Mg IN AM Comp Blood Count Auto Diff IN AM Labs on day of discharge: Labs from last 24 hours 07/29/16 07/29/16 03:56 03:56 WBC 3.1 L RBC 2.81 L Hgb 9.8 L Hct 27.6 L MCV 98.2 MCH 35 H MCHC 35.5 RDW 15.1 Plt Count 91 L MPV 11.2 Neut % (Auto) 52.0 Lymph % (Auto) 28.7 [place] % (Auto) 14.5 H Eos % (Auto) 2.3 Baso % (Auto) 0.6 Neut # (Auto) 1.6 Lymph # (Auto) 0.9 L [place] # (Auto) 0.5 Eos # (Auto) 0.1 Baso # (Auto) 0.0 Immature Gran % 1.9 Nucleated RBC % 0.0 Immature Gran # 0.06 Nucleated RBCs # 0.00 Platelet Estimate Adequate Anisocytosis Hal Cells Few Sodium 140 Potassium 3.8 Chloride 111 H Carbon Dioxide 15 L Anion Gap 17.8 H BUN 6 L Creatinine 0.90 GFR Calculation 116 BUN/Creatinine Ratio 6.00 Glucose 121 H Calculated Osmolality 277.4 Calcium 8.3 L Magnesium 1.6 L DS: Provider Date of admission: 07/24/16 18:40 Primary care physician: Alley Mills Attending physician on admission: Madison Miller MD Consults: 07/24/16 19:39 Consult to Pharmacy [CONS] Routine Reason for Pharmacy Consult: Adjust Meds Renal Funct 07/24/16 19:54 Consult to Pastoral Services [CONS] Routine Comment: Pastoral Screen: Request Intake Assessor Visit 07/25/16 14:20 Consult to Physician [CONS] Routine Comment: Consulting Provider: Consult to Specialist Group: Gastroenterology When should Consulting Provider be notified: Now 07/25/16 14:55 Consult to Physician [CONS] Routine Comment: Consulting Provider: Chalo Nathan Consulting Provider Notified: Yes Consult to Specialist Group: Gastroenterology Person Notified: APPLE Date Notified: 07/25/16 Time Notified: 14:50 07/26/16 09:17 Consult to Physician [CONS] Routine Comment: cardiac clearence Consulting Provider: Tracey hCapman Consulting Provider Notified: Yes Consult to Specialist Group: Cardiology Person Notified: NICHOLE Date Notified: 07/26/16 Time Notified: 09:40 Discharging clinician: Madison Miller MD Expected date of discharge: 07/29/16
[2016-07-29 17:47] VITALS: BP 118/71
== END 2016-07-29 19:17 | disposition home or self-care (01) | DRG 279 ==
LOC: EDBD → EDUNIT# → N.ED 16:25 → N.EDINP 18:40 → N.ICU 19:15 → N.5E 07-28 18:37
PROVIDERS: ADMIT Family Medicine; ATTEND Internal Medicine Gastroenterology

== ENCOUNTER 2017-01-27 14:00 | Inpatient (IN) ==
[2017-01-27 15:11] LABS: Basophils % 0.3 % (0.0-0.8); Eosinophils # 0.1 10*3/uL (0.0-0.87); Eosinophils % 0.7 % (0.00-10.9); Hematocrit 23.2 VOL% (42.0-52.0); Hemoglobin 8.6 GM/DL (14.0-18.0); Immature Granulocytes % 2.7 %; Immature Granulocytes Absolute 0.26 #; Lymphocytes # 0.9 10*3/uL (1.4-4.0); Lymphocytes % 9.4 % (21.2-54.2); Mean Corpuscular HGB Conc 37.1 GM/DL (32-36); Mean Corpuscular Hemoglobin 32 PG (27-34); Mean Corpuscular Volume 86.6 FL (87-102); Mean Platelet Volume 10.5 FL (9.6-12.0); Monocytes # 0.9 10*3/uL (0.11-0.8); Monocytes % 9.4 % (1.7-12.7); NRBC # 0.02 10*3/uL; Neutrophils # 7.5 10*3/uL (1.4-7.4); Neutrophils % 77.5 % (38.7-73.9); Platelet Count 103 T/CUMM (130-400); Red Blood Count 2.68 MC/CUMM (3.8-5.5); Red Cell Distribution Width 22.1 % (9.3-17.3); White Blood Count 9.7 T/CUMM (4-12)
[2017-01-27 15:28] LABS: INR 1.6; PT Patient Result 17.7 SECS
[2017-01-27 15:34] LABS: Partial Thromboplastin Time 39.7 SECS (0-40)
--- NOTE | 2017-01-27 15:36 | CT Report ---
CT abdomen pelvis wo con Indication: GI bleed. CT ABDOMEN AND PELVIS WITHOUT CONTRAST DLP: 613 mGy*cm. One or more of the following dose reduction techniques was used: Automated exposure control, adjustment of the mA and/or kV according the patient size, or use of iterative reconstruction techniques. Comparison: 05/02/2008. Technique: Axial noncontrast CT images of the abdomen and pelvis were obtained. Abdomen: Tiny bilateral pleural effusions are present. Heart size is normal. Gynecomastia noted. Dependent atelectasis of the lungs. Liver is very hypodense with a smooth contour. No discrete lesion identified. Calcifications are distributed throughout the pancreas. A 27 x 24 mm pseudocyst within the tail the pancreas is similar to the previous exam. There is mild peripancreatic inflammation on CT, as well as diffuse mild anasarca of the mesentery and anterior abdominal wall. Spleen is normal in size. Main portal vein diameter is normal at 14 mm. Adrenal glands and kidneys are grossly unremarkable. There is mild atheromatous disease the aorta but no aneurysm. No bowel obstruction identified. . Pelvis: Trace amount of fluid is present in the pelvis. Rectosigmoid colon and urinary bladder are within normal limits. Normal-sized prostate. No free air. No lymphadenopathy. Degenerative changes lumbar spine noted. Impression: 1. Calcifications distributed throughout the pancreas and a pancreatic pseudocyst are present, both sequela from prior pancreatitis. There is mild peripancreatic fat stranding on the current examination as well suggesting an acute on chronic pathology. Correlation with serum studies necessary. 2. Mild anasarca of the mesentery and anterior abdominal wall. 3. Very hypodense liver consistent with fatty infiltration. Trace amount of ascites in the pelvis. 4. Tiny bilateral pleural effusions with left greater than right bibasilar atelectasis. 5. Gynecomastia, often seen with end-stage liver disease, marijuana use, certain medications, etc. PROCEDURE INTERPRETED AT [facility] DEPARTMENT OF RADIOLOGY Final Report Signed by: Jed Kim M.D.
[2017-01-27 15:43] LABS: Albumin 1.9 G/DL (3.4-5.0); Bilirubin,Total 5.6 MG/DL (0.2-1.0); Calcium 7.8 MG/DL (8.5-10.1); Osmolality,Calculated 267.5 MOS/KG (273-304); Potassium 3.1 MMOL/L (3.5-5.1); Total Protein 5.8 G/DL (6.4-8.3)
[2017-01-27] MEDS ORDERED: PANTOPRAZOLE 40 MG VIAL IV STA (16:15)
--- NOTE | 2017-01-27 16:21 | Emergency Department Note ---
Arrival - Arrival Chief Complaint: Weakness ED Nursing Triage Note: seen at immediate care clinic for routine checkup, sent for further evalaution of hypotension, dark tarry stools, pt denies any pain or discomfort, just having generalized weakness Mode of Arrival: Stretcher Time Seen by Provider: 01/27/17 14:28 - History of Present Illness HPI Narrative: Patient sent here from the clinic with complaint of dark tarry stools and hypotension. Found to be Hemoccult negative. Denies any abdominal pain chest pain or shortness of breath. No recent fevers or chills. No emesis. pt does stat that he drinks mitchell danniels everyday. Onset (ago): day(s) (2) Consistency: constant Allergies/Adverse Reactions: Allergies Allergy/AdvReac Type Severity Reaction Status Date / Time aspirin Allergy Mild Unknown/Unable Verified 01/27/17 14:10 to obtain lisinopril Allergy Unknown/Unable Verified 01/27/17 14:10 to obtain Home Medications: Home Medications Medication Instructions Recorded Confirmed Type Metoprolol Tartrate Tab [Lopressor 50 mg PO BID 01/05/16 01/27/17 History Tab] Cyanocobalamin Tab [Vitamin B12 500 mcg PO QAM 01/27/17 01/27/17 History Tab] Multivitamin [Multivitamins] 1 each PO QAM 01/27/17 01/27/17 History hydroCHLOROthiazide 25 mg PO QAM 01/27/17 01/27/17 History [Hydrochlorothiazide] Review of System - Review of System Constitutional: Absent: chills, fever Eyes: Absent: discharge, pain Respiratory: Absent: cough, respiratory distress Cardiovascular: Absent: chest pain, palpitations Gastrointestinal: Present: melena. Absent: abdominal pain, nausea, diarrhea Genitourinary male: Absent: dysuria, hematuria Skin: Absent: rash Neurological: Present: weakness Medical,Surgical,& Family Hx - Medical History Cardio: History of: Aneurysm, Cardiac Dysrhythmia (hx of afib not on anticoagulation), Hypertension Psychological: History of: Psychiatric/Substance Abuse Tx (ALCHOLISM he reports that he drinks at least a fifth a day. drinks all day) Neurology: History of: Brain Aneurysm, Cerebrovascular Accident (2010) HEENT: History of: Dental Problems (poor dentition) Rheumatology: History of;: Rheumatoid Arthritis Genitourinary: History of: Recurring Urinary Tract Infections Gastrointestinal: History of: GERD, GI Problems (alcoholic cirrhosis) Musculoskeletal: History of: Musculoskeletal Problems (L SIDED WEAKNESS/ L UPPER EXT CONTRACTURE.) Hematology: History of: Anemia No history of: Blood Transfusion Reaction Other: History of: Miscellaneous Medical Problems (vein problems) No history of: Anesthesia Reactions - Surgical History Neurologic Surgeries: Surgical HX of: Brain Aneurysm Patient denies: Neurologic Surgery Abdominal Surgeries: Surgical HX of: Abdominal Surgery, Cholecystectomy, Colonoscopy, EGD, Hernia Repair - Family History Family History: Reports;: Family Cancer, Family Diabetes, Family Heart Disease, Family Hypertension, Family Stroke - Social History Smoking Status: Never smoker Exam Vital Signs: Vital Signs Temperature 97.9 F 01/27/17 14:19 Pulse Rate 68 01/27/17 14:19 Respiratory Rate 17 01/27/17 14:19 Blood Pressure 86/58 01/27/17 14:19 O2 Sat by Pulse Oximetry 99 01/27/17 14:04 - General General appearance: alert, in no apparent distress - Head Head exam: Present: atraumatic, normocephalic - Eye Eye exam: Present: PERRL, EOMI, scleral icterus - ENT ENT exam: Present: mucous membranes dry, TM's normal bilaterally, normal external ear exam - Neck Neck exam: Present: normal inspection, full ROM, trachea midline - Chest Chest inspection: Present: normal inspection - Respiratory Respiratory exam: Present: normal lung sounds bilaterally - Cardiovascular Cardiovascular exam: Present: regular rate, normal rhythm - Abdominal Exam Abdominal exam: Present: soft, normal bowel sounds. Absent: distention, tenderness, guarding, rebound - Rectal Exam Rectal exam: Present: normal rectal tone, heme (+) stool - Extremities Exam Extremities exam: Present: other (left side paresis noted on the left. ) - Back Exam Back exam: Present: normal inspection Course Course Narrative: Patient admitted to the hospitalist service for GI bleed. Results - Labs CBC & BMP: 01/27/17 14:50 01/27/17 14:50 Lab Results: I have reviewed the patients labs Disposition Clinical Impression: GI bleed Case discussed with: patient, patient's family Disposition: Still a Patient Condition: Stable Time of Disposition: 16:32
[2017-01-27] MEDS ORDERED: ACETAMINOPHEN 325 MG TABLET PO PRN (16:46)
[2017-01-27] MEDS ORDERED: ONDANSETRON 4 MG/2 ML VIAL IV PRN (16:46)
[2017-01-27] MEDS ORDERED: PANTOPRAZOLE 40 MG VIAL IV ONE (16:47)
--- NOTE | 2017-01-27 17:06 | Hospitalist History & Physical ---
<Rosette Cline - Last Filed: 01/27/17 17:04> Assessment and Plan (1) GI bleed Status: Acute Assessment and plan: Consult GI to evaluate. Monitored bed. IVFs. Check serial h&h. Transfuse as necessary. IV protonix. Current Visit: Yes (2) Acute renal failure Status: Acute Assessment and plan: Consult nephrology. Gentle hydration. Daily bmps. Avoid nephrotoxic agents. Current Visit: No (3) Hypokalemia Status: Acute Assessment and plan: Potassium replacement. Recheck in am. Current Visit: No (4) CVA, old, hemiparesis Status: Chronic Current Visit: No (5) Hypotension Status: Resolved Assessment and plan: Pt's blood pressure was low on arrival to ED. has since resolved after fluid resuscitation. Hold bp meds for now. Current Visit: No History of Present Illness Chief complaint: referral from doctors office History of present illness: Mr. Quijano is a 61 year old black male with a history of htn, alcohol abuse, and stroke (Jul 2010) that presented to the ED as a referral from a local medical clinic for evaluation of hypotension. Pt. was at the [facility] for a regular check up when this was noted. Pt. was brought in and received fluid resuscitation. Hypotension is resolved. Pt's marine cargo specialist is present at the bedside. She reports that on Monday she began noting that the patient had black tarry stools in his diaper. (Patient reports wearing a diaper since stroke in July 2010 which has left him wheelchair-bound). She also noted that patient had very dark urine. Patient reports feeling tired lately but denies shortness of breath, chest pain, abdominal pain, nausea, or vomiting. Patient also denies noting any blood in urine or any nosebleeds. Patient does report that he has bled some from several open wounds on his left lower extremity. Pt's labs were obtained at the time and patient was noted to have h&h of 8.6/23.2, K 3.1, Na 125, bun 60 , creatinine 4, and bilirubin 5.6. Pt. will be admitted to the hospitalist service for further evaluation and treatment. Home Medications Medication Instructions Recorded Confirmed Type Metoprolol Tartrate Tab [Lopressor 50 mg PO BID 01/05/16 01/27/17 History Tab] Cyanocobalamin Tab [Vitamin B12 500 mcg PO QAM 01/27/17 01/27/17 History Tab] Multivitamin [Multivitamins] 1 each PO QAM 01/27/17 01/27/17 History hydroCHLOROthiazide 25 mg PO QAM 01/27/17 01/27/17 History [Hydrochlorothiazide] Allergies Allergy/AdvReac Type Severity Reaction Status Date / Time aspirin Allergy Mild Unknown/Unable Verified 01/27/17 14:10 to obtain lisinopril Allergy Unknown/Unable Verified 01/27/17 14:10 to obtain Medical,Surgical,& Family Hx - Medical History Cardio: History of: Aneurysm, Cardiac Dysrhythmia (hx of afib not on anticoagulation), Hypertension Psychological: History of: Psychiatric/Substance Abuse Tx (ALCHOLISM he reports that he drinks at least a fifth a day. drinks all day) Neurology: History of: Brain Aneurysm, Cerebrovascular Accident (2010) HEENT: History of: Dental Problems (poor dentition) Rheumatology: History of;: Rheumatoid Arthritis Genitourinary: History of: Recurring Urinary Tract Infections Gastrointestinal: History of: GERD, GI Problems (alcoholic cirrhosis) Musculoskeletal: History of: Musculoskeletal Problems (L SIDED WEAKNESS/ L UPPER EXT CONTRACTURE.) Hematology: History of: Anemia No history of: Blood Transfusion Reaction Other: History of: Miscellaneous Medical Problems (vein problems) No history of: Anesthesia Reactions - Surgical History Neurologic Surgeries: Surgical HX of: Brain Aneurysm Patient denies: Neurologic Surgery Abdominal Surgeries: Surgical HX of: Abdominal Surgery, Cholecystectomy, Colonoscopy, EGD, Hernia Repair - Family History Family History: Reports;: Family Cancer, Family Diabetes, Family Heart Disease, Family Hypertension, Family Stroke - Social History Smoking Status: Never smoker 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 Absent: abdominal pain - Genitourinary Genitourinary: Absent: difficulty urinating - Neurological Neurological: Absent: dizziness, headache(s) Exam - Constitutional Vitals: Period Temp Pulse Resp BP Sys/Newton Pulse Ox Last 24 Hr 97.9 F-97.9 F 68-68 17-18 86-86/58-58 99 General appearance: normal weight, no acute distress - Head Head exam: Present: normal inspection, normocephalic - Eye Eye exam: Present: EOMI. Absent: scleral icterus Pupils: Present: SOBEIDA - Respiratory Respiratory exam: Present: clear to auscultation bilaterally. Absent: wheezes - Extremities Exam Extremities exam: Present: edema (LLE greater than RLE.) - Neurological Exam Neurological exam: Present: alert, oriented X3 - Psychiatric Psychiatric exam: Present: normal affect, normal mood - Skin Skin exam: Present: normal color, warm, dry Results - Labs CBC & BMP: 01/27/17 14:50 01/27/17 14:50 Lab Results: I have reviewed the past 24 hour labs <Balaji Chiang - Last Filed: 01/27/17 18:54> History of Present Illness History of present illness: Mr. Quijano is a 61 year old male who presented to the emergency room today with hypotension and a several day history of black tarry stools. Evaluation in the emergency room included laboratory testing demonstrating hematocrit 23.2, hemoglobin 8.6, BUN 60, creatinine 4.0, sodium 125, and bilirubin 5.6. He had a previously well known history of hypertension alcohol abuse and a cerebrovascular accident. I have interviewed the patient, examined the patient , reviewed all the available laboratory tests and x-ray results. I agree with the assessment and plans of nurse dinh Cline. He will be admitted to the hospital and transfused 2 units of packed red blood cells. Gastroenterology has been consulted. Exam - Constitutional Vitals: Period Temp Pulse Resp BP Sys/Newton Pulse Ox Last 24 Hr 97.9 F-98.4 F 68-73 17-20 86-122/58-65 92-99 Results - Labs CBC & BMP: 01/27/17 14:50 01/27/17 14:50
--- NOTE | 2017-01-27 17:45 | XRay Report ---
Exam: XR chest 1V portable Date: 01/27/2017 5:27 PM Indication: Shortness of breath, history GI bleed Comparison: 07/26/2016 Technical: AP Findings: Atelectatic change present in the basilar regions bilaterally left greater than right with low volume left effusion. Heart is normal in size. No obvious infiltrate. The mediastinum and bony structures are otherwise intact. External cardiac leads are present. No pneumothorax Impression: 1. Bibasilar atelectatic change 2. Interval removal nasogastric tube compared to prior study PROCEDURE INTERPRETED AT [facility] DEPARTMENT OF RADIOLOGY Final Report Signed by: Dr. Chalo Diaz
--- NOTE | 2017-01-27 18:38 | EKG Report ---
Stationary ECG Study [facility] Test Date: 01/27/2017 6:37:04 PM Pat Name: FERNIE KRAMER Department: Room: 425 Gender: M Motorcycle Service Technician: FLORENCIO : 1955 Requested by: Rosette Cline Order Number: [id number] Reading MD: JESSE DRISCOLL Intervals [place] Rate: 72 P: 12 AK: 170 QRS: 31 QRSD: 106 T: 62 QT: 433 QTc: 458 Interpretive Statements SINUS RHYTHM WITH OCCASIONAL SUPRAVENTRICULAR PREMATURE COMPLEXES LOW QRS VOLTAGE IN EXTREMITY LEADS Electronically Signed On 01-27-17 19:18:20 CDT by JESSE DRISCOLL [email or web address]
[2017-01-27] MEDS: SODIUM CHLORIDE 0.9% 1,000 ML IV SCH (18:53)
[2017-01-27 19:55] LABS: Basophils % 0.2 % (0.0-0.8); Eosinophils # 0.1 10*3/uL (0.0-0.87); Eosinophils % 0.7 % (0.00-10.9); Hematocrit 22.7 VOL% (42.0-52.0); Hemoglobin 8.4 GM/DL (14.0-18.0); Immature Granulocytes % 1.9 %; Immature Granulocytes Absolute 0.18 #; Lymphocytes # 1.2 10*3/uL (1.4-4.0); Lymphocytes % 12.2 % (21.2-54.2); Mean Corpuscular Hemoglobin 32 PG (27-34); Mean Corpuscular Volume 86.3 FL (87-102); Monocytes # 0.9 10*3/uL (0.11-0.8); Monocytes % 9.4 % (1.7-12.7); NRBC # 0.02 10*3/uL; Neutrophils # 7.3 10*3/uL (1.4-7.4); Neutrophils % 75.6 % (38.7-73.9); Platelet Count 102 T/CUMM (130-400); Red Blood Count 2.63 MC/CUMM (3.8-5.5); Red Cell Distribution Width 22.2 % (9.3-17.3); White Blood Count 9.6 T/CUMM (4-12)
[2017-01-27] MEDS: POTASSIUM CHLORIDE 20 MEQ TABLET PO PRN ×2 (20:09→22:09)
[2017-01-27 23:01] LABS: Apearance,Urine CLOUDY (Clear); Bacteria,Urine Many /HPF (Few); Bilirubin,Urine Negative (Negative); Blood, Urine Small mg/dL (Negative); Glucose,Urine (UA) Negative (Negative); Ketones,Urine Negative (Negative); Mucus,Urine Occasional /LPF (Occasional); Nitrite,Urine Negative (Negative); Protein,Urine 30 MG/DL; RBC,Urine 3 /HPF (0-4); Squamous Epithelial Cell,Urine Occasional /HPF (0-10); Urine Color Amber (Yellow); WBC,Urine 71 /HPF (0-6)
[2017-01-28] MEDS: POTASSIUM CHLORIDE 20 MEQ TABLET PO PRN ×2 (04:54→07:08)
[2017-01-28 06:48] LABS: Blood Urea Nitrogen 65 MG/DL (7-18); Calcium 7.5 MG/DL (8.5-10.1); Cholesterol < 50 MG/DL (50-200); Glucose 80 MG/DL (74-106); HDL Cholesterol < 10 MG/DL (40-60); Magnesium 3.2 MG/DL (1.8-2.4); Osmolality,Calculated 274.1 MOS/KG (273-304); Potassium 3.1 MMOL/L (3.5-5.1); Sodium 128 MMOL/L (136-145); Triglycerides 56 MG/DL (2-150); VLDL CHOLESTEROL 11.2 MG/DL
[2017-01-28 07:38] LABS: Basophils % 0.4 % (0.0-0.8); Eosinophils # 0.1 10*3/uL (0.0-0.87); Eosinophils % 0.8 % (0.00-10.9); Hematocrit 24.3 VOL% (42.0-52.0); Hemoglobin 9.1 GM/DL (14.0-18.0); Immature Granulocytes % 2.1 %; Immature Granulocytes Absolute 0.16 #; Lymphocytes # 1.1 10*3/uL (1.4-4.0); Lymphocytes % 13.9 % (21.2-54.2); Mean Corpuscular HGB Conc 37.4 GM/DL (32-36); Mean Corpuscular Hemoglobin 31 PG (27-34); Mean Corpuscular Volume 83.8 FL (87-102); Mean Platelet Volume 11.5 FL (9.6-12.0); Monocytes # 0.7 10*3/uL (0.11-0.8); Monocytes % 8.9 % (1.7-12.7); Neutrophils # 5.8 10*3/uL (1.4-7.4); Neutrophils % 73.9 % (38.7-73.9); Platelet Count 98 T/CUMM (130-400); Red Cell Distribution Width 20.6 % (9.3-17.3); White Blood Count 7.8 T/CUMM (4-12)
[2017-01-28 08:00] LABS: Burr Cells 2+; Macrocytosis 1+; Spherocytes Few; Target Cells Slight
[2017-01-28] MEDS: SODIUM CHLORIDE 0.9% 250 ML IV SCH (08:01)
--- NOTE | 2017-01-28 09:55 | Gastrointestinal Consult Note ---
Assessment and Plan - Time spent with patient Time spent with patient: Greater than 30 minutes (1) Melena Status: Acute Current Visit: No (2) Alcoholic hepatitis Status: Acute Current Visit: No (3) Symptomatic anemia Status: Acute Current Visit: Yes (4) Abnormal findings on diagnostic imaging of other abdominal regions, including retroperitoneum Status: Acute Current Visit: Yes (5) Alcohol use disorder, severe, dependence Status: Acute Current Visit: Yes (6) Other specified counseling Status: Acute Current Visit: Yes History of Present Illness History of present illness: Mr. Quijano is a 61 year old male Home Medications Medication Instructions Recorded Confirmed Type Metoprolol Tartrate Tab [Lopressor 50 mg PO BID 01/05/16 01/27/17 History Tab] Cyanocobalamin Tab [Vitamin B12 500 mcg PO QAM 01/27/17 01/27/17 History Tab] Multivitamin [Multivitamins] 1 each PO QAM 01/27/17 01/27/17 History hydroCHLOROthiazide 25 mg PO QAM 01/27/17 01/27/17 History [Hydrochlorothiazide] Allergies Allergy/AdvReac Type Severity Reaction Status Date / Time aspirin Allergy Mild Unknown/Unable Verified 01/27/17 14:10 to obtain lisinopril Allergy Unknown/Unable Verified 01/27/17 14:10 to obtain Medical,Surgical,& Family Hx - Medical History Cardio: History of: Aneurysm, Cardiac Dysrhythmia (hx of afib not on anticoagulation), Hypertension Psychological: History of: Psychiatric/Substance Abuse Tx (ALCHOLISM he reports that he drinks at least a fifth a day. drinks all day) Neurology: History of: Brain Aneurysm, Cerebrovascular Accident (2011), Peripheral Neuropathy (hands) HEENT: History of: Dental Problems (poor dentition) Rheumatology: History of;: Rheumatoid Arthritis Genitourinary: History of: Recurring Urinary Tract Infections Gastrointestinal: History of: GERD, GI Problems (alcoholic cirrhosis) Musculoskeletal: History of: Musculoskeletal Problems (L SIDED WEAKNESS/ L UPPER EXT CONTRACTURE.) Hematology: History of: Anemia No history of: Blood Transfusion Reaction Other: History of: Miscellaneous Medical Problems (vein problems) No history of: Anesthesia Reactions - Surgical History Neurologic Surgeries: Surgical HX of: Brain Aneurysm Patient denies: Neurologic Surgery Abdominal Surgeries: Surgical HX of: Abdominal Surgery, Cholecystectomy, Colonoscopy, EGD, Hernia Repair Orthopedic Surgeries: Surgical HX of;: Orthopedic Surgery (quad removed of right leg) - Family History Family History: Reports;: Family Cancer, Family Diabetes, Family Heart Disease, Family Hypertension, Family Stroke - Social History Smoking Status: Never smoker Frequency of Alcohol Use: None Exam - Constitutional Vitals: Period Temp Pulse Resp BP Sys/Newton Pulse Ox Last 24 Hr 71 F-98.8 F 68-99 17-20 83-122/45-77 92-99 Results - Labs CBC & BMP: 01/28/17 07:14 01/28/17 04:36 Note Addendum: PLEASE NOTE -- automatic citation of patient information is unavoidable in this electronic note. I have made a reasonable effort to review the information cited , but it is not a part of my evaluation, impression, or recommendation unless specifically discussed in the dictated text that follows. As well, voice recognition software was used in the creation of this clinical note. Reasonable effort was made to identify and correct gross errors. Despite proofreading, errors in plastics seasoner operator may be present, including nonsense verbiage at times. If you encounter such an error, please contact me at for discussion and correction. -- Mike Chief complaint: dark tarry stool History of present illness: This is a new patient, a 61-year-old male seen by consultation for evaluation of suspected gastrointestinal bleeding in the setting of dark stool and anemia with hypotension. The patient is admitted to the hospitalist service under the care of Dr. Barrientos with a primary diagnosis of gastrointestinal bleeding. The patient was admitted yesterday through the emergency department with primary complaint of symptomatic hypotension. Evaluation at that time revealed systolic blood pressure in the 80s with normal heart rate and anemia with hemoglobin less than 9 g/dL. Crystalloid resuscitation in the emergency department resulted in improved blood pressure and the patient was admitted for further evaluation. The patient carries a diagnosis of alcohol abuse with likely alcoholic fatty liver disease but does not have a clear diagnosis of cirrhosis. He does have a diagnosis of recurrent acute pancreatitis and meets radiologic criteria for chronic pancreatitis. Since his admission he has been managed conservatively with volume resuscitation , transfusion, and supportive care otherwise. He is not having any abdominal pain, nausea, or vomiting. He admits to at least a 1/5 gallon of Herminio Myers per day and has done this for years. He has been advised, on many occasions, to stop drinking but has not done so and does not express an intention to do so at present. He is hungry and would like to eat and does have a clear liquid trade at the bedside. He is without other complaints at present. Patient denies fever, chills, night sweats, rigors, headache, dizziness, neck pain, visual changes, redness of the eyes, dysphagia, odynophagia, difficulty chewing, chest pain, shortness of breath, weight loss, nausea, vomiting, regurgitation, hematemesis, hematochezia, proctalgia, constipation, dysuria, skin changes, temperature regulation issues, flushing, easy bleeding/bruising, mental status change, cutaneous eruptions, family history of gastrointestinal cancer and colon polyps, and other complaints in general. Review of systems: 12 point review of systems was negative except as documented above. Outpatient medications: hydrochlorothiazide, multivitamin, Lopressor, vitamin B12 Inpatient medications: Tylenol, vitamin B12, folic acid, [place], Centrum, Zofran , Protonix, potassium chloride, thiamine, sodium chloride infusion Past Medical History: aneurysm, atrial fibrillation (not on anticoagulation), hypertension, alcoholism, brain aneurysm, cerebrovascular accident (2010), pour dentition, rheumatoid arthritis, recurrent urinary tract infection, gastroesophageal reflux disease, possible alcoholic cirrhosis, left-sided weakness and upper extremity contracture (sequela of CVA), anemia Social history: negative tobacco. Daily alcohol, at least 1/5 gallon Family history: no gastrointestinal cancers Physical examination: Vital Signs: Current vital signs reviewed and documented above. General Appearance: lying in bed accompanied by a automation sales manager. Comfortable. No acute distress. Head: Normocephalic. Neck: Palpation of the neck revealed no abnormalities. Eyes: positive scleral icterus. No scleral injection. Equivocal conjunctival pallor. Oral Cavity: Odor of breath was normal. No drooling was observed. Lips showed no abnormalities. Floor of the mouth showed no abnormalities. Dentition was poor Pharynx: Oropharynx was normal. Lungs: Respiration rhythm and depth was normal. Cardiovascular: Heart rate and rhythm were normal. No murmurs were appreciated. Abdomen: abdomen was not distended. Abdominal palpation revealed no tenderness and no hepatosplenomegaly. Ascites was not discovered. Abdominal auscultation revealed positive bowel sounds. Musculoskeletal System: Musculoskeletal system was grossly normal but with weakness and contracture on the left. Neurological: level of consciousness was normal. Speech was normal. Skin: General appearance was normal. Color and pigmentation were normal. No skin lesions. Laboratory: white blood count 7.8, hemoglobin 9.1, hematocrit 24.3, platelets 98 , INR 1.6, lipase 224, albumin 1.9, total protein 5.8, alkaline phosphatase 108 , AST 115, ALT 30, total bilirubin 5.6, INR 1.6, PT 17.7, Maddrey discriminant 32, MELD score 33 Radiology: CT of the abdomen and pelvis, January 27, 2017 -- calcification is throughout the pancreas; pancreatic psuedocyst; vinay-pancreatic fat stranding suggesting acute pancreatitis; mild anasarca of the mesentery and abdominal wall ; hypodense liver consistent with fatty infiltration but smooth contour and no mention of intra-abdominal varices; trace ascites; gynecomastia Impressions: #1. Melena -- the differential diagnosis includes peptic ulcer, gastritis/ esophagitis generally, arteriovenous malformation, esophageal or gastric varices , lower gastrointestinal bleeding, and many others including dietary related changes in bowel pattern. I recommend serial hemoglobin and hematocrit monitoring with transfusion as indicated. I recommend continued crystalloid resuscitation as indicated. I recommend intravenous proton pump inhibitor. Patient will need upper endoscopy with timing dependent on clinical progress, likely Monday. #2. Alcoholic hepatitis -- patient meets discriminant factor threshold for treatment with systemic steroids. I recommend prednisilone (not prednisone) 40 mg daily to start with taper over eight weeks. I have advised patient in clear terms that, if he does not choose to stop drinking, the likelihood that he will in the next 90 days is high. He has expressed understanding but I am dubious as to whether he intends to follow this advice. #3. Symptomatic anemia -- continue monitoring with further transfusion as indicated #4. 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 He does not meet clinical criteria for acute pancreatitis. I recommend alcohol cessation, continued aggressive volume resuscitation, and monitoring. #5. Alcohol use disorder -- I have counseled the patient regarding the importance of alcohol cessation. He will take this under advisement. #6. Other specified counseling -- The patient was seen for greater than 30 minutes. The patient was counseled for greater than 50% of this time regarding differential diagnosis, likely diagnosis, diagnostic and therapeutic alternatives, risks/benefits/alternatives of medications and procedures, and plan of care generally. The patient expressed understanding and wishes to proceed. Recommendations: -- continued aggressive volume and electrolyte management -- monitor blood counts and transfuse as indicated -- agree with clear liquid diet -- prednisolone 40 mg daily -- alcohol abstinence now and forever -- upper endoscopy with timing based on clinical progress, likely Monday -- thank you for this consult. We will follow with you
[2017-01-28] MEDS: FOLIC ACID 0.4 MG TABLET PO SCH (10:33)
[2017-01-28] MEDS: MULTIVITAMIN (CENTRUM) TABLET PO SCH (10:33)
[2017-01-28] MEDS: THIAMINE 100 MG TABLET PO SCH (10:34)
[2017-01-28] MEDS: CYANOCOBALAMIN 500 MCG TABLET PO SCH (10:34)
[2017-01-28] MEDS: PANTOPRAZOLE 40 MG TABLET PO SCH (10:34)
[2017-01-28] MEDS ORDERED: SODIUM CHLORIDE 0.9% 250 ML IV PRN (11:50)
--- NOTE | 2017-01-28 11:54 | Nephrology Consult Note ---
History of Present Illness Chief complaint: ARF, gi bleed History of present illness: Mr. Quijano is a 61 year old male status post stroke who has chronic lower extremity edema. Presented with melena and a history of taking ibuprofen and whiskey to treat left shoulder pain. 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 He presented with a hematocrit of 22 and previously had a hematocrit of over 30 in September. His creatinine at that time in September was 0.8 and was 4 on presentation here. Blood pressure is running about 100 systolic. He takes metoprolol at home along with hydrochlorothiazide both which are being held. He is in no distress and is very talkative. His chest is clear and heart without rub or gallop abdomen is not tender. Lower extremities show some lesion on the garcía related to trauma from getting in and out of car with his wheelchair. He does have 2-3+ bilateral edema up to his thigh. Impression acute renal failure secondary to GI bleed and intravascular volume depletion with hypotension #2 history of stroke #3 history of recent overuse of ibuprofen Suggestion we will continue the PPI #2 with his hematocrit of 2:24 units of packed cells will give another unit of packed cells #3 slow his IV fluids #4 continue to stay off all blood pressure lowering medicines Home Medications Medication Instructions Recorded Confirmed Type Metoprolol Tartrate Tab [Lopressor 50 mg PO BID 01/05/16 01/27/17 History Tab] Cyanocobalamin Tab [Vitamin B12 500 mcg PO QAM 01/27/17 01/27/17 History Tab] Multivitamin [Multivitamins] 1 each PO QAM 01/27/17 01/27/17 History hydroCHLOROthiazide 25 mg PO QAM 01/27/17 01/27/17 History [Hydrochlorothiazide] Allergies Allergy/AdvReac Type Severity Reaction Status Date / Time aspirin Allergy Mild Unknown/Unable Verified 01/27/17 14:10 to obtain lisinopril Allergy Unknown/Unable Verified 01/27/17 14:10 to obtain Medical,Surgical,& Family Hx - Medical History Cardio: History of: Aneurysm, Cardiac Dysrhythmia (hx of afib not on anticoagulation), Hypertension Psychological: History of: Psychiatric/Substance Abuse Tx (ALCHOLISM he reports that he drinks at least a fifth a day. drinks all day) Neurology: History of: Brain Aneurysm, Cerebrovascular Accident (2011), Peripheral Neuropathy (hands) HEENT: History of: Dental Problems (poor dentition) Rheumatology: History of;: Rheumatoid Arthritis Genitourinary: History of: Recurring Urinary Tract Infections Gastrointestinal: History of: GERD, GI Problems (alcoholic cirrhosis) Musculoskeletal: History of: Musculoskeletal Problems (L SIDED WEAKNESS/ L UPPER EXT CONTRACTURE.) Hematology: History of: Anemia No history of: Blood Transfusion Reaction Other: History of: Miscellaneous Medical Problems (vein problems) No history of: Anesthesia Reactions - Surgical History Neurologic Surgeries: Surgical HX of: Brain Aneurysm Patient denies: Neurologic Surgery Abdominal Surgeries: Surgical HX of: Abdominal Surgery, Cholecystectomy, Colonoscopy, EGD, Hernia Repair Orthopedic Surgeries: Surgical HX of;: Orthopedic Surgery (quad removed of right leg) - Family History Family History: Reports;: Family Cancer, Family Diabetes, Family Heart Disease, Family Hypertension, Family Stroke - Social History Smoking Status: Never smoker Frequency of Alcohol Use: None Review of Systems 12 point system: reviewed and no additional remarkable complaints except as stated Exam - Vital Signs Vital signs: Period Temp Pulse Resp BP Sys/Newton Pulse Ox Last 24 Hr 71 F-98.8 F 68-99 17-20 83-122/45-77 92-99 - General Appearance General appearance: well-developed, well-nourished, appears started age Neck: no JVD, no thyromegaly, no carotid bruit, supple Respiratory: no kyphosis, no scoliosis Cardiology: no murmurs, no rub, no gallops, no edema, regular rate, regular rhythm, normal S1, normal S2 Gastrointestinal: normoactive bowel sounds Integumentary: no rash, warm and dry Neurologic: no focal deficit, no asterixis, alert and oriented x3, reflexes 2+ and symmetric, gait normal, strength 5/5 Musculoskeletal: no deformities, no erythema, no cyanosis, no clubbing Psychiatric: mood/affect appropriate, cooperative Results - Labs CBC & BMP: 01/28/17 07:14 01/28/17 04:36 Assessment and Plan - Time spent with patient Time spent with patient: Greater than 30 minutes (1) Acute renal failure Status: Acute Assessment and plan: Due to volume depletion from his GI bleed Current Visit: No (2) UGIB (upper gastrointestinal bleed) Problem details: Likely has melena from a gastritis due to alcohol/ nonsteroidals Status: Resolved Current Visit: No Specialty Discharge - Follow Up or Referrals - Speciality Discharge Instructions Nephrology Instructions: We will continue to follow and expect his renal function improved. He will be transfused and continue with slower fluid administration.
[2017-01-28] MEDS: SODIUM CHLORIDE 0.9% 1,000 ML IV SCH (11:59)
[2017-01-28] MEDS: POTASSIUM CHLORIDE INJ 20 MEQ in SODIUM CHLORIDE 0.9% 1,000 ML IV SCH (12:30)
--- NOTE | 2017-01-28 12:59 | Hospitalist Progress Note ---
Hospitalist: Subjective Interval history: 61-year-old -[place] male who was admitted with upper GI bleed, melena, anemia, renal failure and hypotension. He still has some dark stool but blood pressure has improved. He is otherwise comfortable. Exam - Constitutional Vitals: Period Temp Pulse Resp BP Sys/Newton Pulse Ox Last 24 Hr 71 F-98.8 F 68-99 17-20 83-122/45-77 92-99 Exam: General: No Acute Distress HEENT: Jaundice, poor dentition Neck: Supple, No JVD Chest: Clear to auscultation B/L CV: S1 + S2 audible without murmur, gallop or rub Abd: soft, NT, Non-distended, BS + Ext: Some edema with chronic hyperpigmentation changes Skin: No purpura, bruising or rash Neurologic: Left hemiparesis Results - Labs CBC & BMP: 01/28/17 07:14 01/28/17 04:36 - Impressions Assessment and Plan: Upper GI bleed with melena Status: Acute Assessment and plan: Patient reports taking NSAIDs at home for chronic pain. He is on oral Protonix. GI is following. Continue clear liquid diet for the endoscopy possibly on Monday. Current Visit: Yes Anemia of acute GI blood loss Status: Acute Assessment and plan: Patient was transfused with 2 units of packed RBCs 01/27, hematocrit has improved Current Visit: Yes Hypokalemia Status: Acute Assessment and plan: This is being treated via potassium replacement protocol, continue to monitor metabolic profile Current Visit: Yes Hypotension Status: Acute Assessment and plan: This is improved with IV fluids. Home BP medications currently on hold. Current Visit: Yes Alcohol use disorder, severe, dependence Assessment and plan: Monitor for delirium tremens, continue thiamine. Delirium tremens prophylaxis with Librium started on 01/28, will continue adjust dosage based on his clinical situation Status: Acute Current Visit: Yes Acute alcoholic hepatitis Status: Acute Assessment and plan: He has been started on oral prednisolone 40 mg 01/29, he will tapered over 8 weeks. Pt has bnormal imaging of the pancreas and liver, with evidence of alcoholic fatty liver disease with infiltrative hepatopathy and chronic pancreatitis. Current Visit: Yes Chronic pain syndrome Status: Chronic Assessment and plan: He was advised to avoid NSAIDs. He is on as needed [place]. Current Visit: Yes Acute renal failure Status: Acute Assessment and plan: Avoid nephrotoxic agents. Continue IV fluids, monitor metabolic profile. Nephrology is following Current Visit: No h/o stroke with chronic left hemiparesis, history of brain aneurysm Status: Chronic Current Visit: No Patient is wheelchair-bound because of this
[2017-01-28] MEDS: chlordiazePOXIDE 10 MG CAPSULE PO SCH ×2 (16:08→20:37)
[2017-01-29] MEDS: POTASSIUM CHLORIDE INJ 20 MEQ in SODIUM CHLORIDE 0.9% 1,000 ML IV SCH ×2 (04:50→17:38)
[2017-01-29 05:46] LABS: Basophils % 0.4 % (0.0-0.8); Eosinophils # 0.1 10*3/uL (0.0-0.87); Eosinophils % 1.1 % (0.00-10.9); Hematocrit 24.9 VOL% (42.0-52.0); Hemoglobin 9.2 GM/DL (14.0-18.0); Immature Granulocytes % 2.6 %; Immature Granulocytes Absolute 0.19 #; Lymphocytes # 1.2 10*3/uL (1.4-4.0); Mean Corpuscular HGB Conc 36.9 GM/DL (32-36); Mean Corpuscular Hemoglobin 31 PG (27-34); Mean Platelet Volume 11.1 FL (9.6-12.0); Monocytes # 0.6 10*3/uL (0.11-0.8); Neutrophils # 5.3 10*3/uL (1.4-7.4); Neutrophils % 71.9 % (38.7-73.9); Platelet Count 105 T/CUMM (130-400); Red Blood Count 2.93 MC/CUMM (3.8-5.5); Red Cell Distribution Width 20.4 % (9.3-17.3); White Blood Count 7.4 T/CUMM (4-12)
[2017-01-29 06:13] LABS: Osmolality,Calculated 282.4 MOS/KG (273-304); Potassium 3.1 MMOL/L (3.5-5.1)
[2017-01-29 07:30] LABS: Atypical Lymphocytes Few; Eosinophils 1 % (0-10); Hypochromasia 1+; Lymphocytes 12 % (20-55); Macrocytosis 1+; Platelet Estimate Decreased; Segmented Neutrophils 84 % (50-85); Total Cells Counted 100
[2017-01-29 07:31] LABS: Basophilic Stippling Slight
[2017-01-29] MEDS: CYANOCOBALAMIN 500 MCG TABLET PO SCH (09:37)
[2017-01-29] MEDS: PANTOPRAZOLE 40 MG TABLET PO SCH (09:37)
[2017-01-29] MEDS: FOLIC ACID 0.4 MG TABLET PO SCH (09:37)
[2017-01-29] MEDS: MULTIVITAMIN (CENTRUM) TABLET PO SCH (09:38)
[2017-01-29] MEDS: chlordiazePOXIDE 10 MG CAPSULE PO SCH ×4 (09:38→20:17)
[2017-01-29] MEDS: prednisoLONE 5 MG TABLET PO SCH (09:38)
[2017-01-29] MEDS: THIAMINE 100 MG TABLET PO SCH (09:44)
[2017-01-29] MEDS ORDERED: SKIN HEALING OINT (AQUAPHOR) 50 GM TUBE TOP PRN (10:48)
--- NOTE | 2017-01-29 11:20 | Nephrology Progress Note ---
Nephrology - PN: Subj Interval history: Mr. Quijano is seen in follow-up of his renal impairment which is acute. His creatinine is improved to 2.6 from yesterday's 3.8 and his hematocrit is 25% after being transfused. He is alert and in no distress and complaining bitterly about not eating. It looks like it will be later before any procedure done so I think it is fine to go ahead and allow him to eat. He has edema of his lower extremities as before. He is growing gram-negative rods from his urine. Kidney morin he is improved and blood count is stable. Exam (PN)-Nephrology - Vital Signs Vital signs: Period Temp Pulse Resp BP Sys/Newton Pulse Ox Last 24 Hr 97 F-98.3 F 68-89 16-20 98-143/56-74 92-98 - Lab 01/29/17 05:02 01/29/17 05:02 Most recent lab results Calcium 8.0 MG/DL (8.5-10.1) L 01/29/17 05:02 Magnesium 3.2 MG/DL (1.8-2.4) H 01/28/17 04:36 Assessment and Plan (1) Acute renal failure Status: Acute Assessment and plan: Due to volume depletion from his GI bleed Current Visit: No (2) UGIB (upper gastrointestinal bleed) Problem details: Likely has melena from a gastritis due to alcohol/ nonsteroidals Status: Resolved Current Visit: No
--- NOTE | 2017-01-29 13:11 | Hospitalist Progress Note ---
Hospitalist: Subjective Interval history: Pt has no further GI Bleed. Exam - Constitutional Vitals: Period Temp Pulse Resp BP Sys/Newton Pulse Ox Last 24 Hr 97 F-98.1 F 68-89 16-20 98-129/56-73 92-98 Exam: General: No Acute Distress HEENT: Jaundice, poor dentition Neck: Supple, No JVD Chest: Clear to auscultation B/L CV: S1 + S2 audible without murmur, gallop or rub Abd: soft, NT, Non-distended, BS + Ext: Some edema with chronic hyperpigmentation changes Skin: No purpura, bruising or rash Neurologic: Left hemiparesis Results - Labs CBC & BMP: 01/29/17 05:02 01/29/17 05:02 - Impressions Assessment and Plan: Upper GI bleed with melena Status: Acute Assessment and plan: Patient reports taking NSAIDs at home for chronic pain. He is on oral Protonix. GI is following. Continue clear liquid diet for the endoscopy possibly on Monday. NPO past MN, currently on diet. Current Visit: Yes Anemia of acute GI blood loss Status: Acute Assessment and plan: Patient was transfused with 2 units of packed RBCs 01/27, hematocrit has improved Current Visit: Yes Hypokalemia Status: Acute Assessment and plan: This is being treated with K [place], continue to monitor metabolic profile Current Visit: Yes Hypotension Status: Acute Assessment and plan: This is improved with IV fluids. Home BP medications currently on hold. Current Visit: Yes UTI, POA Status: Acute Assessment and plan: On IV Rocephin, f/u Urine C/S Current Visit: Yes Alcohol use disorder, severe, dependence Assessment and plan: Monitor for delirium tremens, continue thiamine. Delirium tremens prophylaxis with Librium started on 01/28, will continue adjust dosage based on his clinical situation Status: Acute Current Visit: Yes Acute alcoholic hepatitis Status: Acute Assessment and plan: He has been started on oral prednisolone 40 mg 01/29, he will tapered over 8 weeks. Pt has bnormal imaging of the pancreas and liver, with evidence of alcoholic fatty liver disease with infiltrative hepatopathy and chronic pancreatitis. Current Visit: Yes Chronic pain syndrome Status: Chronic Assessment and plan: He was advised to avoid NSAIDs. He is on as needed [place]. Current Visit: Yes Acute renal failure/CHANDRAKANT Status: Acute Assessment and plan: Avoid nephrotoxic agents. Continue IV fluids, Cr is improving, monitor metabolic profile. Nephrology is following Current Visit: No h/o stroke with chronic left hemiparesis, history of brain aneurysm Status: Chronic Current Visit: No Patient is wheelchair-bound because of this
--- NOTE | 2017-01-29 14:49 | Gastrointestinal Progress Note ---
Assessment and Plan - Time spent with patient Time spent with patient: Greater than 30 minutes (1) Melena Status: Acute Current Visit: No (2) Alcoholic hepatitis Status: Acute Current Visit: No (3) Symptomatic anemia Status: Acute Current Visit: Yes (4) Abnormal findings on diagnostic imaging of other abdominal regions, including retroperitoneum Status: Acute Current Visit: Yes (5) Alcohol use disorder, severe, dependence Status: Acute Current Visit: Yes (6) Other specified counseling Status: Acute Current Visit: Yes Exam (Progress Note) - Constitutional Vitals: Period Temp Pulse Resp BP Sys/Newton Pulse Ox Last 24 Hr 97 F-98.1 F 68-89 16-20 98-129/56-73 92-98 Results - Labs CBC & BMP: 01/29/17 05:02 01/29/17 05:02 Note Addendum: PLEASE NOTE -- automatic citation of patient information is unavoidable in this electronic note. I have made a reasonable effort to review the information cited , but it is not a part of my evaluation, impression, or recommendation unless specifically discussed in the dictated text that follows. As well, voice recognition software was used in the creation of this clinical note. Reasonable effort was made to identify and correct gross errors. Despite proofreading, errors in tube depatcher may be present, including nonsense verbiage at times. If you encounter such an error, please contact me at for discussion and correction. -- Mike Chief complaint: dark tarry stool History of present illness: This is a 61-year-old male seen for follow-up of suspected gastrointestinal bleeding in the setting of dark stool and anemia with hypotension. The patient is tolerating oral intake and has no bowel movements reported overnight. The patient received a total of three units of red blood cells yesterday and counts have remained stable, so far, today. He has been started on prednisilone. He reports feeling comfortable at present. Inpatient medications: Tylenol, vitamin B12, folic acid, [place], Centrum, Zofran , Protonix, potassium chloride, thiamine, sodium chloride infusion Physical examination: Vital Signs: Current vital signs reviewed and documented above. General Appearance: lying in bed accompanied by a education counselor. Comfortable. No acute distress. Head: Normocephalic. Neck: Palpation of the neck revealed no abnormalities. Eyes: positive scleral icterus. No scleral injection. Equivocal conjunctival pallor. Oral Cavity: Odor of breath was normal. No drooling was observed. Lips showed no abnormalities. Floor of the mouth showed no abnormalities. Dentition was poor Pharynx: Oropharynx was normal. Lungs: Respiration rhythm and depth was normal. Cardiovascular: Heart rate and rhythm were normal. No murmurs were appreciated. Abdomen: abdomen was not distended. Abdominal palpation revealed no tenderness and no hepatosplenomegaly. Ascites was not discovered. Abdominal auscultation revealed positive bowel sounds. Musculoskeletal System: Musculoskeletal system was grossly normal but with weakness and contracture on the left. Neurological: level of consciousness was normal. Speech was normal. Skin: General appearance was normal. Color and pigmentation were normal. No skin lesions. Laboratory: what blood count some .4, hemoglobin 9.2, MCV 85, platelets 105, sodium 133, creatinine 2.6, no new liver labs today Radiology: CT of the abdomen and pelvis, January 27, 2017 -- calcification is throughout the pancreas; pancreatic psuedocyst; vinay-pancreatic fat stranding suggesting acute pancreatitis; mild anasarca of the mesentery and abdominal wall ; hypodense liver consistent with fatty infiltration but smooth contour and no mention of intra-abdominal varices; trace ascites; gynecomastia Impressions: #1. Melena -- the differential diagnosis is unchanged. I recommend serial hemoglobin and hematocrit monitoring with transfusion as indicated. I recommend continued crystalloid resuscitation as indicated. I recommend intravenous proton pump inhibitor. Patient will need upper endoscopy and we will plan that for tomorrow. #2. Alcoholic hepatitis -- patient meets discriminant factor threshold for treatment with systemic steroids. He has started on prednisolone and will taper this over eight weeks. I have again advised patient in clear terms that, if he does not choose to stop drinking, the likelihood that he will in the next 90 days is high. #3. Symptomatic anemia -- continue monitoring with further transfusion as indicated #4. 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 He does not meet clinical criteria for acute pancreatitis. I recommend alcohol cessation, continued aggressive volume resuscitation, and monitoring. #5. Alcohol use disorder -- I have counseled the patient regarding the importance of alcohol cessation. He will take this under advisement. #6. Other specified counseling -- The patient was seen for less than 30 minutes. The patient was counseled for greater than 50% of this time regarding differential diagnosis, likely diagnosis, diagnostic and therapeutic alternatives, risks/benefits/alternatives of medications and procedures, and plan of care generally. The patient expressed understanding and wishes to proceed. Recommendations: -- continued aggressive volume and electrolyte management -- monitor blood counts and transfuse as indicated -- agree with clear liquid diet -- continue prednisolone 40 mg daily -- alcohol abstinence now and forever -- upper endoscopy Monday -- thank you for this consult. Dr. Nathan will assume G.I. care for this patient tomorrow.
[2017-01-29] MEDS: cefTRIAXone 2,000 MG VIAL IM SCH (17:32)
[2017-01-29] MEDS ORDERED: LORazepam 2 MG/1 ML VIAL IV PRN (19:46)
[2017-01-29] MEDS ORDERED: LORazepam 2 MG/1 ML VIAL ONE (19:49)
--- NOTE | 2017-01-29 21:44 | Event Note ---
Addendum entered and electronically signed by Angle Souza NP 01/29/17 23 :54: Patient moved to the ICU. He has had no further hematemesis. Blood is oozing from left lower extremity wounds. Dressings have way saturated. Patients mental status and blood pressure improving. Will draw DIC lab work and start patient on Protonix daily IV. Will obtain CT head for altered mental status. Discussed with patients status and plans. verbalized understanding. Original Note: Called to the floor by RN for altered mental mental status and vomiting blood. Patient is admitted for a GI bleed, awaiting a scope. He has a history of alcoholism and was very anxious and jittery. He was given 1mg of Ativan. 45 minutes after Ativan was given, patient became lethargic and bright red blood began to come out of patient's mouth. Patient's mouth was suctioned and vital signs rechecked. SBP 90's. Will draw a stat H/H and transfer patient to ICU.
[2017-01-29] MEDS ORDERED: SODIUM CHLORIDE 0.9% 1,000 ML IV ONE (22:26)
[2017-01-29] MEDS: POTASSIUM CHLORIDE 20 MEQ TABLET PO SCH (22:28)
[2017-01-29 23:40] LABS: Basophils % 0.2 % (0.0-0.8); Hematocrit 29.4 VOL% (42.0-52.0); Hemoglobin 10.7 GM/DL (14.0-18.0); Immature Granulocytes Absolute 0.08 #; Lymphocytes # 0.1 10*3/uL (1.4-4.0); Lymphocytes % 1.3 % (21.2-54.2); Mean Corpuscular HGB Conc 36.4 GM/DL (32-36); Mean Corpuscular Hemoglobin 32 PG (27-34); Mean Corpuscular Volume 87.2 FL (87-102); Mean Platelet Volume 11.6 FL (9.6-12.0); Monocytes % 0.2 % (1.7-12.7); NRBC # 0.05 10*3/uL; Neutrophils # 8.2 10*3/uL (1.4-7.4); Neutrophils % 97.3 % (38.7-73.9); Red Blood Count 3.37 MC/CUMM (3.8-5.5); Red Cell Distribution Width 21.4 % (9.3-17.3); White Blood Count 8.4 T/CUMM (4-12)
[2017-01-29 23:44] LABS: Platelet Count 90 T/CUMM (130-400)
[2017-01-29 23:55] LABS: Fibrinogen Quant Value 217 MG% (200-400); Partial Thromboplastin Time 33.7 SECS (0-40)
[2017-01-30 00:05] LABS: D-Dimer 13.6 MG/L FEU
[2017-01-30 00:44] LABS: Anisocytosis 2+; Band Neutrophils 31 % (0-10); Hypochromasia 1+; Lymphocytes 1 % (20-55); Macrocytosis 2+; Metamyelocytes 3 %; Nucleated Red Blood Cells 1 (0-5); Platelet Estimate Decreased; Polychromasia Few; Segmented Neutrophils 64 % (50-85); Total Cells Counted 100
[2017-01-30] MEDS ORDERED: PHYTONADIONE 10 MG/1 ML AMP SUBCUT ONE (02:11)
[2017-01-30] MEDS: POTASSIUM CHLORIDE INJ 20 MEQ in SODIUM CHLORIDE 0.9% 1,000 ML IV SCH (06:02)
--- NOTE | 2017-01-30 06:15 | CT Report ---
Referring physician: Dian Barrientos MD Exam: CT brain without contrast Date: 01/30/2017 Comparison: 07/24/2016 Reason: Alteration of consciousness Technique: Axial images of the head were obtained without the use of contrast. Total DLP was 970.10 mGy*cm. This exam was initially interpreted by [facility]. Findings: The ventricles remain diffusely dilated with no midline displacement. There is no evidence of an acute infarction, recent intracranial hemorrhage or abnormal mass effect. Diffuse atrophy and cerebral hypodensities. Chronic right basal ganglia/centrum semiovale infarction. The osseous structures appear intact. Incomplete fusion of posterior ring of C1. The mastoid air cells and visualized paranasal sinuses are clear. Impression: No acute intracranial abnormality is identified. Persistent atrophy and microvascular disease with probable compensatory dilatation of the ventricles. Chronic right basal ganglia/centrum semiovale ovale infarction. The CT exam was performed using one or more of the following dose reduction techniques: Automated exposure control and adjustment of the mA and/or kV according to patient size. PROCEDURE INTERPRETED AT [facility] DEPARTMENT OF RADIOLOGY Final Report Signed by: Dr. Shelia Fonseca
--- NOTE | 2017-01-30 07:37 | Physician Query Form ---
CLICK EDIT DOCUMENT TO SELECT QUERY ANSWER --> OK --> SIGN Myranda Coello RN, CCDS Certified Clinical Crisis Counselor W) [phone] (f) [phone] [email or web address] PROVIDERS: Make your selection(s) from the choices in EACH section by typing an "x" and enter comments in the comment section. Please use your independent medical judgment in providing your response. This request does not imply that any particular answer is desired or expected. CLINICAL INDICATORS: (Providers should not edit this section) The medical record indicates that the patient was admitted with GI bleeding, Ammonia to 73#, on the : "Called to the floor by RN for altered mental status and vomiting blood"; CT of the brain was ordered. ACUITY: (x ) Acute ( ) Acute on Chronic ( ) Chronic ( ) Clinically unable to determine NATURE: ( ) Delirium due to general medical condition ( ) Dementia ( ) Encephalopathy ( x) Hepatic Encephalopathy ( ) Unconscious ( ) Transient level of awareness ( ) Comatose ( ) Locked-in State ( ) Persistent Vegetative State ( ) Other, please specify: ( ) Clinically unable to determine Please indicate the underlying cause of the altered mental status (CHECK ALL THAT APPLY): ( ) Baseline dementia ( ) Alzheimer's disease ( ) Parkinson's disease ( ) Lewy body dementia ( ) Acute stroke (x ) Late effect of stroke ( ) Reactive (from emotional stress, psychological trauma) ( ) Due to narcotics/other drugs ( ) Post procedural delirium ( ) Transient ischemic attack ( ) Generalized cerebral edema ( ) Normal pressure hydrocephalus ( ) Psychiatric illness ( ) Other, please specify: ( ) Clinically unable to determine Please indicate if there is an infection, sepsis, dehydration or specific organ failure that is causing the dementia. Be specific with clarifying the relationship between that process and the mental status change. COMMENTS: PLEASE ALSO DOCUMENT RESPONSE IN PROGRESS NOTES AND/OR DISCHARGE SUMMARY Use of terms such as suspected, likely, or probable (associated with a specific diagnosis that is being evaluated, monitored, or treated as if it exists) are acceptable and can be restated in the discharge summary if not ruled out. MTDD
--- NOTE | 2017-01-30 07:38 | Physician Query Form ---
CLICK EDIT DOCUMENT TO SELECT QUERY ANSWER --> OK --> SIGN Myranda Coello RN, CCDS Certified Clinical Special Delivery Messenger W) [phone] (f) [phone] [email or web address] PROVIDERS: Make your selection(s) from the choices in EACH section by typing an "x" and enter comments in the comment section. Please use your independent medical judgment in providing your response. This request does not imply that any particular answer is desired or expected. CLINICAL INDICATORS: (Providers should not edit this section) The medical record indicates that the patient was admitted with GI bleeding, Sodium of 125 and the patient has been receiving IVF's. Based on the above, could you clarify the appropriate diagnosis, if significant , that supports the above abnormalities and additional evaluation, monitoring, and/or treatment rendered: (x ) Patient has been treated or monitored for hyponatremia ( ) Patient has not been treated or monitored for hyponatremia ( ) Other, please specify: ( ) Clinically unable to determine COMMENTS: PLEASE ALSO DOCUMENT RESPONSE IN PROGRESS NOTES AND/OR DISCHARGE SUMMARY Use of terms such as suspected, likely, or probable (associated with a specific diagnosis that is being evaluated, monitored, or treated as if it exists) are acceptable and can be restated in the discharge summary if not ruled out. MTDD
[2017-01-30] MEDS ORDERED: PANTOPRAZOLE 40 MG VIAL IV SCH (09:00)
[2017-01-30] MEDS: MULTIVITAMIN (CENTRUM) TABLET PO SCH (09:07)
[2017-01-30] MEDS: FOLIC ACID 0.4 MG TABLET PO SCH (09:07)
[2017-01-30] MEDS: prednisoLONE 5 MG TABLET PO SCH (09:10)
[2017-01-30] MEDS: CYANOCOBALAMIN 500 MCG TABLET PO SCH (09:10)
[2017-01-30] MEDS: POTASSIUM CHLORIDE 20 MEQ TABLET PO SCH ×2 (09:10→21:46)
[2017-01-30] MEDS: chlordiazePOXIDE 10 MG CAPSULE PO SCH ×3 (09:10→21:47)
[2017-01-30] MEDS: THIAMINE 100 MG TABLET PO SCH (09:10)
[2017-01-30 09:12] LABS: Basophils # 0.1 10*3/uL (0.0-0.2); Basophils % 0.3 % (0.0-0.8); Hematocrit 27.1 VOL% (42.0-52.0); Hemoglobin 9.9 GM/DL (14.0-18.0); Immature Granulocytes % 3.1 %; Immature Granulocytes Absolute 1.12 #; Lymphocytes # 0.2 10*3/uL (1.4-4.0); Lymphocytes % 0.6 % (21.2-54.2); Mean Corpuscular HGB Conc 36.5 GM/DL (32-36); Mean Corpuscular Hemoglobin 31 PG (27-34); Mean Corpuscular Volume 85.8 FL (87-102); Mean Platelet Volume 10.8 FL (9.6-12.0); Monocytes # 0.8 10*3/uL (0.11-0.8); Monocytes % 2.2 % (1.7-12.7); NRBC # 0.02 10*3/uL; Neutrophils # 34.2 10*3/uL (1.4-7.4); Neutrophils % 93.8 % (38.7-73.9); Red Blood Count 3.16 MC/CUMM (3.8-5.5); Red Cell Distribution Width 21.3 % (9.3-17.3)
[2017-01-30 09:15] LABS: Platelet Count 82 T/CUMM (130-400); White Blood Count 36.5 T/CUMM (4-12)
[2017-01-30 09:40] LABS: Fibrinogen Quant Value 211 MG% (200-400); INR 1.9; PT Patient Result 20.7 SECS; Partial Thromboplastin Time 39.5 SECS (0-40)
[2017-01-30 09:48] LABS: D-Dimer 18.3 MG/L FEU
[2017-01-30 09:51] LABS: Albumin 1.6 G/DL (3.4-5.0); Bilirubin,Total 4.7 MG/DL (0.2-1.0); Calcium 8.3 MG/DL (8.5-10.1); Potassium 3.5 MMOL/L (3.5-5.1); Total Protein 5.1 G/DL (6.4-8.3)
[2017-01-30 09:53] LABS: Band Neutrophils 16 % (0-10); Hypochromasia 1+; Lymphocytes 1 % (20-55); Metamyelocytes 1 %; Segmented Neutrophils 76 % (50-85); Total Cells Counted 100
[2017-01-30 09:54] LABS: Burr Cells 1+; Microcytosis 1+; Platelet Estimate Decreased; Polychromasia Slight
--- NOTE | 2017-01-30 09:54 | Nephrology Progress Note ---
Nephrology - PN: Subj Interval history: Mr. Quijano is seen in follow-up of his renal impairment. He is now in the intensive care unit and has begun to bleed and ooze from needle sticks etc. His kidney function lab has not been checked this morning we will get that but his trend was toward improvement as far as his renal function had been going. His hematocrit is 27 and platelet count 80,000. Apparently the plan is for upper endoscopy today. He is sleepy today and apparently received Ativan last night. We will continue to follow. Exam (PN)-Nephrology - Vital Signs Vital signs: Period Temp Pulse Resp BP Sys/Newton Pulse Ox Last 24 Hr 97.0 F-99.8 F 72-121 18-29 83-131/49-87 93-100 - Lab 01/30/17 09:04 01/30/17 09:04 Most recent lab results Calcium 8.3 MG/DL (8.5-10.1) L 01/30/17 09:04 Magnesium 2.5 MG/DL (1.8-2.4) H 01/30/17 09:04 Assessment and Plan (1) Acute renal failure Status: Acute Assessment and plan: Due to volume depletion from his GI bleed Current Visit: No (2) UGIB (upper gastrointestinal bleed) Problem details: Likely has melena from a gastritis due to alcohol/ nonsteroidals Status: Resolved Current Visit: No
[2017-01-30] MEDS: NOREPINEPHRINE 8 MG in SODIUM CHLORIDE 0.9% 242 ML IV SCH (10:29)
[2017-01-30] MEDS ORDERED: SODIUM CHLOR 0.9% KCL 20 MEQ 20 MEQ/1,000 ML BAG IV SCH ×2 (11:00→17:50)
[2017-01-30] MEDS: DESITIN 4OZ/NYSTATIN 15 GRAM MIXTURE PASTE TOP SCH ×2 (12:27→23:40)
[2017-01-30] MEDS ORDERED: ETOMIDATE 20 MG/10 ML VIAL IV ONE (13:35)
--- NOTE | 2017-01-30 13:46 | History and Physical Update ---
History and Physical Update - History and Physical H&P was reviewed, the patient examined and there: are no changes in the patients condition since last H&P was completed. - Physical Exam Mental Status: alert and oriented Heart: regular rate and rhythm Lung: clear to auscultation Abdomen: within normal limits Vitals: within normal limits
--- NOTE | 2017-01-30 13:50 | Operative Note ---
Date of procedure: 01/30/17 Pre-op diagnosis: Anemia, recent melena Procedure: Procedure: Esophagogastroduodenoscopy Brief clinical abstract: 61-year-old male is admitted with recent black stools and anemia. He has evidence of severe alcoholic hepatitis with recent continued alcohol abuse. Indication for procedure: GI bleed with melena Endoscopic findings:[After informed consent was obtained, the patient was placed in the left lateral decubitus position. The gastroscope was inserted in the upper esophagus under direct vision with no resistance encountered. Esophageal mucosa appeared normal with squamocolumnar junction sharply demarcated at the diaphragmatic indentation. No varices were seen. The endoscope was advanced in the stomach which was carefully examined including retroflexed view of the cardia and fundus. Patient had multiple ulcers in the antrum of the stomach with at least 10 of these noted. A couple of them were 1.5-2 cm diameter with the remainder in the 5 mm range. No visible vessel was seen. I elected not to biopsy these with his thrombocytopenia. No varices were noted in the stomach. The pyloric channel, duodenal bulb, second and third portion of the duodenum appeared normal. The endoscope was removed and patient appeared to tolerate the procedure well. Impression: Multiple gastric ulcers-appearance suggests low risk of active bleeding Recommendations: Continue PPI therapy. Ask about nonsteroidal use and needs to discontinue if taking. G Anesthesia: MAC Surgeon / Physician: Chalo Nathan Estimated blood loss: none Specimens: none sent Condition: stable Disposition: no change Results - Labs CBC & BMP: 01/30/17 09:04 01/30/17 09:04 Discharge Plan - Discharge Medications No Action Metoprolol Tartrate Tab [Lopressor Tab] 50 mg PO BID hydroCHLOROthiazide [Hydrochlorothiazide] 25 mg PO QAM Multivitamin [Multivitamins] 1 each PO QAM Cyanocobalamin Tab [Vitamin B12 Tab] 500 mcg PO QAM - Follow Up or Referral - Forms/Instructions
[2017-01-30] MEDS ORDERED: cefTRIAXone 2,000 MG VIAL IV SCH (13:51)
--- NOTE | 2017-01-30 13:53 | Anesthesia Post-Op ---
Anesthesia Post OP - Post Ansesthetic Evaluation Patient seen in post op: Yes Resp: within normal limits CV: within normal limits Mental: within normal limits Temp: within normal limits [id number]: within normal limits Nausea and Vomiting: within normal limits Pain: within normal limits
[2017-01-30] MEDS: cefTRIAXone 2,000 MG VIAL IM SCH (13:57)
[2017-01-30] MEDS ORDERED: cefTRIAXone 2,000 MG in SODIUM CHLORIDE 0.9% 100 ML IV SCH (14:00)
--- NOTE | 2017-01-30 14:37 | Hospitalist Progress Note ---
Hospitalist: Subjective Interval history: 61-year-old male was admitted with upper GI bleed and hematemesis. He had further GI bleed last night and was transferred to intensive care unit. He is status post EGD today. No further bleeding noted today. Exam - Constitutional Vitals: Period Temp Pulse Resp BP Sys/Newton Pulse Ox Last 24 Hr 97.8 F-99.8 F 78-121 12-29 83-131/49-87 92-100 Exam: General: No Acute Distress HEENT: Jaundice, poor dentition Neck: Supple, No JVD Chest: Clear to auscultation B/L CV: S1 + S2 audible without murmur, gallop or rub Abd: soft, NT, Non-distended, BS + Ext: Some edema with chronic hyperpigmentation changes Skin: No purpura, bruising or rash Neurologic: Left hemiparesis Results - Labs CBC & BMP: 01/30/17 09:04 01/30/17 09:04 - Impressions Assessment and Plan: Upper GI bleed with melena Status: Acute Assessment and plan: Patient had an EGD done which revealed multiple gastric ulcers mostly in the antral region. He is on IV Protonix BID. GI is following. Current Visit: Yes Anemia of acute GI blood loss Status: Acute Assessment and plan: Patient was transfused with 2 units of packed RBCs 01/27, and again on . HCT is stable. Will monitor hematocrit every 8 hourly Current Visit: Yes Hypokalemia Status: Acute Assessment and plan: This is being treated with K Dur, continue to monitor metabolic profile, potassium has improved Current Visit: Yes Hypotension due to GI bleed Status: Acute Assessment and plan: This is improved with Levophed, home BP medications remain on hold. Current Visit: Yes E. coli UTI, POA Status: Acute Assessment and plan: On IV Rocephin Current Visit: Yes Alcohol use disorder, severe, dependence Assessment and plan: Monitor for delirium tremens, continue thiamine. Delirium tremens prophylaxis with Librium started on 01/28, will continue adjust dosage based on his clinical situation Status: Acute Current Visit: Yes Acute alcoholic hepatitis Status: Acute Assessment and plan: He has been started on oral prednisolone 40 mg 01/29, he will tapered over 8 weeks. Pt has bnormal imaging of the pancreas and liver, with evidence of alcoholic fatty liver disease with infiltrative hepatopathy and chronic pancreatitis. Current Visit: Yes Chronic pain syndrome Status: Chronic Assessment and plan: He was advised to avoid NSAIDs. He is on as needed [place]. Current Visit: Yes Acute renal failure/CHANDRAKANT on CKD-III Status: Acute Assessment and plan: Avoid nephrotoxic agents. Continue IV fluids, Cr is improving, monitor metabolic profile. Nephrology is following Current Visit: Yes h/o stroke with chronic left hemiparesis, history of brain aneurysm Status: Chronic Current Visit: No Patient is wheelchair-bound because of this
[2017-01-30] MEDS: cefTRIAXone 2,000 MG in SODIUM CHLORIDE 0.9% 100 ML IV SCH (14:55)
[2017-01-30 15:11] LABS: Hematocrit 29.5 VOL% (42.0-52.0); Hemoglobin 10.5 GM/DL (14.0-18.0)
[2017-01-30] MEDS: LACTULOSE 20 GM/30 ML UDCUP PO SCH ×2 (16:08→21:46)
[2017-01-30 17:47] LABS: Apearance,Urine CLOUDY (Clear); Bilirubin,Urine Negative (Negative); Blood, Urine Large mg/dL (Negative); Glucose,Urine (UA) Negative (Negative); Ketones,Urine Negative (Negative); Nitrite,Urine Negative (Negative); Protein,Urine 30 MG/DL; RBC,Urine 73 /HPF (0-4); Squamous Epithelial Cell,Urine Occasional /HPF (0-10); Urine Specific Gravity 1.013 (1.001-1.035); WBC,Urine 158 /HPF (0-6)
[2017-01-30 17:48] LABS: Urine Color Yellow (Yellow)
[2017-01-30] MEDS: PANTOPRAZOLE 40 MG VIAL IV SCH (23:40)
[2017-01-30 23:42] LABS: Hemoglobin 10.2 GM/DL (14.0-18.0)
[2017-01-31] MEDS: NOREPINEPHRINE 8 MG in SODIUM CHLORIDE 0.9% 242 ML IV SCH ×2 (01:01→11:05)
[2017-01-31 05:40] LABS: Albumin 1.7 G/DL (3.4-5.0); Bilirubin,Total 5.5 MG/DL (0.2-1.0); Calcium 8.3 MG/DL (8.5-10.1); Osmolality,Calculated 288.8 MOS/KG (273-304); Potassium 3.8 MMOL/L (3.5-5.1); Total Protein 5.7 G/DL (6.4-8.3)
[2017-01-31 06:58] LABS: Hematocrit 27.6 VOL% (42.0-52.0); Hemoglobin 10.2 GM/DL (14.0-18.0)
--- NOTE | 2017-01-31 08:35 | Nephrology Progress Note ---
Nephrology - PN: Subj Interval history: Mr. Quijano is seen in follow-up of his acute renal failure which is improving. His creatinine is 2.2 down from 2.6 yesterday. He remains sedate. We will continue to support but it appears that his renal function will not be a problem for the immediate future liver issues remain a significant problem Exam (PN)-Nephrology - Vital Signs Vital signs: Period Temp Pulse Resp BP Sys/Newton Pulse Ox Last 24 Hr 98.5 F-99.6 F 74-116 - 87-128/49-86 92-100 - Lab 01/31/17 06:53 01/31/17 03:52 Most recent lab results Calcium 8.3 MG/DL (8.5-10.1) L 01/31/17 03:52 Magnesium 2.5 MG/DL (1.8-2.4) H 01/30/17 09:04 Assessment and Plan (1) Acute renal failure Status: Acute Assessment and plan: Due to volume depletion from his GI bleed Current Visit: No (2) UGIB (upper gastrointestinal bleed) Problem details: Likely has melena from a gastritis due to alcohol/ nonsteroidals Status: Resolved Current Visit: No
[2017-01-31] MEDS ORDERED: LACTULOSE 160 GM/240 ML BOTTLE RECTAL SCH (09:00)
[2017-01-31 09:22] LABS: Allen Test Positive
[2017-01-31 09:23] LABS: ABG Base Excess -5.6 MMOL/L (-2.5-2.5); ABG HCO3 17.9 MMOL/L (20-26); ABG Oxygen Saturation 96.8 % (95-100); ABG PCO2 28.3 MM HG (35-48); ABG PH 7.418 (7.35-7.45); ABG PO2 94.8 MM HG (80-95); ABG TCO2 18.7 MMOL/L (23-27)
[2017-01-31] MEDS: prednisoLONE 5 MG TABLET PO SCH (09:48)
[2017-01-31] MEDS: THIAMINE 100 MG TABLET PO SCH (09:48)
[2017-01-31] MEDS: MULTIVITAMIN (CENTRUM) TABLET PO SCH (09:48)
[2017-01-31] MEDS: POTASSIUM CHLORIDE 20 MEQ TABLET PO SCH (09:48)
[2017-01-31] MEDS: FOLIC ACID 0.4 MG TABLET PO SCH (09:48)
[2017-01-31] MEDS: CYANOCOBALAMIN 500 MCG TABLET PO SCH (09:48)
--- NOTE | 2017-01-31 09:59 | Gastrointestinal Progress Note ---
Assessment and Plan (1) Symptomatic anemia Status: Acute Assessment and plan: 01/31-EGD findings noted as below. H&H is stable at this time. Remains n.p.o. due to lethargic. Continue to monitor present time. Plan an addendum to follow Dr. Nathan. Current Visit: Yes Gastroenterology - PN: Subj Interval history: CC: Anemia, melena Patient is seen, asleep, and very difficult to arouse. Once he is awakened, he remains somewhat lethargic and only answers questions minimally. He does deny any abdominal pain, nausea or vomiting. Nursing staff at bedside and denies any overt bleeding. Patient's EGD on yesterday showed multiple gastric ulcers. H&H is stable at 03/31. Abdomen is soft, nontender. Creatinine is trending downward at 2.2. Bilirubin noted at 5.5, AST 166. ROS: Denies shortness of breath or chest pain Exam (Progress Note) - Constitutional Vitals: Period Temp Pulse Resp BP Sys/Newton Pulse Ox Last 24 Hr 98.5 F-99.5 F 74-116 12-29 87-128/49-86 92-100 General appearance: normal weight, no acute distress - Head Head exam: Present: normal inspection, normocephalic - Eye Eye exam: Present: other (Lids and conjunctive are unremarkable). Absent: scleral icterus - ENT ENT exam: Present: normal exam, normal oropharynx - Neck Neck exam: Present: normal inspection - Respiratory Respiratory exam: Present: clear to auscultation bilaterally. Absent: rales, rhonchi, wheezes - Cardiovascular Cardiovascular exam: Present: regular rate and rhythm. Absent: diastolic murmur , JVD, systolic murmur - GI/Abdominal GI/Abdominal exam: Present: normal bowel sounds, soft. Absent: ascites, distended, mass, organomegaly, tenderness - Extremities Exam Extremities exam: Present: normal inspection, full ROM - Back Exam Back exam: Present: normal inspection - Neurological Exam Neurological exam: Present: alert, oriented X3 - Psychiatric Psychiatric exam: Present: normal affect, normal mood - Skin Skin exam: Present: normal color, warm, dry Results - Labs CBC & BMP: 01/31/17 06:53 01/31/17 03:52 Lab Results: I have reviewed the past 24 hour labs
--- NOTE | 2017-01-31 10:08 | XRay Report ---
XR chest 1V portable Indication: SOB Comparison: Chest x-ray dated January 27, 2017 Technique: Single frontal view of the chest. Findings: Continued cardiomegaly. Continued left basilar atelectasis/consolidation and probable small left pleural fluid. Interval increased right basilar atelectasis/consolidation. Visualized osseous and surrounding soft tissue structures appear grossly unchanged. IMPRESSION: As above. PROCEDURE INTERPRETED AT [facility] DEPARTMENT OF RADIOLOGY Final Report Signed by: Dr Dimitri Lainez
[2017-01-31] MEDS: PANTOPRAZOLE 40 MG VIAL IV SCH ×2 (10:30→20:53)
[2017-01-31] MEDS: BACITRACIN OINT 0.9 GM PACK TOP SCH (11:04)
[2017-01-31] MEDS: DESITIN 4OZ/NYSTATIN 15 GRAM MIXTURE PASTE TOP SCH ×2 (11:56→23:18)
[2017-01-31] MEDS: cefTRIAXone 2,000 MG in SODIUM CHLORIDE 0.9% 100 ML IV SCH (15:16)
[2017-01-31 15:26] LABS: Hematocrit 28.3 VOL% (42.0-52.0); Hemoglobin 10.3 GM/DL (14.0-18.0)
--- NOTE | 2017-01-31 16:57 | Hospitalist Progress Note ---
Assessment and Plan (1) UGIB (upper gastrointestinal bleed) Problem details: Likely has melena from a gastritis due to alcohol/ nonsteroidals Status: Resolved Assessment and plan: s/p EGD multiple gastric ulcers, continue Protonix 40 mg twice daily Current Visit: No (2) Acute blood loss anemia Status: Acute Assessment and plan: She received a total of 4 units packed red blood cells and 2 units of fresh frozen plasma Current Visit: Yes (3) Pancytopenia Status: Acute Assessment and plan: Due to cirrhosis. As elevated white count most likely secondary to steroids. Will repeat white count Current Visit: No (4) UTI (urinary tract infection) Status: Acute Assessment and plan: Continue Rocephin for E. coli UTI Current Visit: No (5) Acute renal failure Status: Acute Assessment and plan: Acute renal failure start one half normal saline with [address] Del Cid following Current Visit: No (6) Hepatic encephalopathy Status: Resolved Assessment and plan: Unable to take p.o. medicines continue lactulose rectally, ammonia level decreasing Current Visit: No (7) Alcoholic hepatitis Status: Acute Assessment and plan: AST higher today. Current Visit: No Hospitalist: Subjective Interval history: Patient was on pressors this morning but was weaned off this afternoon. Will observe. Patient was lethargic due to elevated ammonia. They were unable to give anything orally due to mental status change. I told them to give the lactulose rectally. I would avoid any more Ativan or sedating medications. I would not move him out of the ICU Exam - Constitutional Vitals: Period Temp Pulse Resp BP Sys/Newton Pulse Ox Last 24 Hr 98.5 F-98.6 F 73-85 12-24 86-128/50-86 95-100 Exam: Heart Rate-[RRR] Lungs-[CTAB] GI-[+bs soft, NT] Neuro lethargic unable to swallow anything at this time. psych unable to assess due to lethargy General [no acute distress] Results - Labs CBC & BMP: 01/31/17 15:08 01/31/17 03:52 Lab Results: I have reviewed the past 24 hour labs Labs: Culture growing gram-negative rods positive for E. coli. - Diagnostic Findings Procedure: Chest x-ray: report reviewed by me (Bilateral atelectasis)
[2017-01-31 18:39] LABS: Basophils # 0.1 10*3/uL (0.0-0.2); Basophils % 0.3 % (0.0-0.8); Eosinophils # 0.1 10*3/uL (0.0-0.87); Eosinophils % 0.3 % (0.00-10.9); Hematocrit 30.2 VOL% (42.0-52.0); Hemoglobin 10.9 GM/DL (14.0-18.0); Immature Granulocytes % 2.8 %; Lymphocytes # 1.3 10*3/uL (1.4-4.0); Lymphocytes % 4.6 % (21.2-54.2); Mean Corpuscular HGB Conc 36.1 GM/DL (32-36); Mean Corpuscular Hemoglobin 31 PG (27-34); Mean Corpuscular Volume 86.8 FL (87-102); Monocytes # 1.1 10*3/uL (0.11-0.8); Monocytes % 3.8 % (1.7-12.7); Neutrophils % 88.2 % (38.7-73.9); Platelet Count 87 T/CUMM (130-400); Red Blood Count 3.48 MC/CUMM (3.8-5.5); Red Cell Distribution Width 22.6 % (9.3-17.3); White Blood Count 28.4 T/CUMM (4-12)
[2017-01-31] MEDS: SODIUM ACETATE 50 MEQ in SODIUM CHLORIDE 0.45% 1,000 ML IV SCH (20:52)
[2017-01-31] MEDS: LACTULOSE 20 GM/30 ML UDCUP PO SCH (20:53)
[2017-02-01 03:59] LABS: Hypochromasia 2+; Lymphocytes 5 % (20-55); Platelet Estimate Decreased; Segmented Neutrophils 92 % (50-85); Target Cells 1+; Total Cells Counted 100
[2017-02-01 06:35] LABS: Basophils # 0.1 10*3/uL (0.0-0.2); Basophils % 0.3 % (0.0-0.8); Eosinophils # 0.1 10*3/uL (0.0-0.87); Eosinophils % 0.7 % (0.00-10.9); Hematocrit 25.8 VOL% (42.0-52.0); Hemoglobin 9.4 GM/DL (14.0-18.0); Immature Granulocytes % 1.4 %; Immature Granulocytes Absolute 0.26 #; Lymphocytes # 1.4 10*3/uL (1.4-4.0); Lymphocytes % 7.4 % (21.2-54.2); Mean Corpuscular HGB Conc 36.4 GM/DL (32-36); Mean Corpuscular Hemoglobin 31 PG (27-34); Mean Corpuscular Volume 86.3 FL (87-102); Mean Platelet Volume 11.4 FL (9.6-12.0); Monocytes # 0.8 10*3/uL (0.11-0.8); Neutrophils # 16.6 10*3/uL (1.4-7.4); Neutrophils % 86.2 % (38.7-73.9); Red Blood Count 2.99 MC/CUMM (3.8-5.5); Red Cell Distribution Width 22.4 % (9.3-17.3); White Blood Count 19.2 T/CUMM (4-12)
[2017-02-01 06:46] LABS: Platelet Count 84 T/CUMM (130-400)
[2017-02-01 07:04] LABS: Albumin 1.4 G/DL (3.4-5.0); Bilirubin,Total 4.9 MG/DL (0.2-1.0); Calcium 8.3 MG/DL (8.5-10.1); Osmolality,Calculated 297.1 MOS/KG (273-304); Potassium 3.2 MMOL/L (3.5-5.1); Total Protein 4.8 G/DL (6.4-8.3)
[2017-02-01 07:10] LABS: Band Neutrophils 6 % (0-10); Burr Cells Slight; Eosinophils 1 % (0-10); Giant Platelets Few; Hypochromasia 1+; Lymphocytes 5 % (20-55); Ovalocytes Slight; Platelet Estimate Decreased; Segmented Neutrophils 86 % (50-85); Total Cells Counted 100
[2017-02-01 07:11] LABS: Microcytosis Slight
--- NOTE | 2017-02-01 07:49 | Ultrasound Report ---
Exam: US right upper quadrant Date: 02/01/2017 4:56 PM Comparison: 04/27/2008 Indication: Elevated bilirubin Technique:[Multiple transabdominal real-time scans were obtained of the right upper quadrant. Ultrasound images were captured and stored. Color-flow scans obtained.] Findings: No definite gallstones are identified. The wall of the gallbladder is borderline in thickness. CBD is at the upper limits of normal in size measuring 6 mm. Fatty infiltration of the liver which is normal in size with no masses. Right kidney measures 123 mm length no mass or hydronephrosis. The pancreas, aorta including the aortic bifurcation, and IVC are obscured by bowel gas. Color flow documented in the portal vein. Impression: No definite gallstones are identified. The wall of the gallbladder is borderline in thickness and CBD is at the upper limits of normal in size. Biliary scan with ejection fraction may be helpful for further evaluation. Fatty infiltration of the liver. Pancreas and aorta obscured by bowel gas. PROCEDURE INTERPRETED AT [facility] DEPARTMENT OF RADIOLOGY Final Report Signed by: Dr. Shelia Fonseca
[2017-02-01] MEDS: FOLIC ACID 0.4 MG TABLET PO SCH (08:44)
[2017-02-01] MEDS: MULTIVITAMIN (CENTRUM) TABLET PO SCH (08:44)
[2017-02-01] MEDS: THIAMINE 100 MG TABLET PO SCH (08:45)
[2017-02-01] MEDS: LACTULOSE 20 GM/30 ML UDCUP PO SCH ×3 (08:45→20:59)
[2017-02-01] MEDS: CYANOCOBALAMIN 500 MCG TABLET PO SCH (08:45)
[2017-02-01] MEDS: PANTOPRAZOLE 40 MG VIAL IV SCH ×2 (08:45→20:59)
--- NOTE | 2017-02-01 09:55 | Gastrointestinal Progress Note ---
Assessment and Plan (1) Symptomatic anemia Status: Acute Assessment and plan: 02/01-no overt bleeding. H&H is stable at 9/25. Ultrasound results noted. No BM 2 days. Increase lactulose to 3 times daily. continue to monitor present time. Plan an addendum to followed by Dr. Nathan. 01/31-EGD findings noted as below. H&H is stable at this time. Remains n.p.o. due to lethargic. Continue to monitor present time. Plan an addendum to follow Dr. Nathan. Current Visit: Yes Gastroenterology - PN: Subj Interval history: CC: Anemia Patient is seen, more awake and alert, however seems slightly confused this morning. Nursing staff is at bedside and states he is taking his lactulose as ordered however last bowel movement was documented 2 days ago. Patient's ammonia level is up slightly today at 61. He denies any abdominal pain, nausea vomiting. H&H is stable at 9/25. He did have an abdominal ultrasound done this morning which showed no definite gallstones and borderline gallbladder wall thickness with CBD at 6 mm as well as fatty liver. Recommendation for HIDA scan noted. Bilirubin down slightly at 4.9 as well as AST 131. Abdomen is soft, nontender. ROS: Denies shortness of breath or chest pain Exam (Progress Note) - Constitutional Vitals: Period Temp Pulse Resp BP Sys/Newton Pulse Ox Last 24 Hr 97.5 F-99.3 F 71-91 12-20 86-115/50-77 94-100 General appearance: normal weight, no acute distress - Head Head exam: Present: normal inspection, normocephalic - Eye Eye exam: Present: scleral icterus, other (Lids and conjunctive are unremarkable ) - ENT ENT exam: Present: normal exam, normal oropharynx - Neck Neck exam: Present: normal inspection - Respiratory Respiratory exam: Present: clear to auscultation bilaterally. Absent: rales, rhonchi, wheezes - Cardiovascular Cardiovascular exam: Present: regular rate and rhythm. Absent: diastolic murmur , JVD, systolic murmur - GI/Abdominal GI/Abdominal exam: Present: normal bowel sounds, soft. Absent: ascites, distended, mass, organomegaly, tenderness - Extremities Exam Extremities exam: Present: normal inspection, full ROM - Back Exam Back exam: Present: normal inspection - Neurological Exam Neurological exam: Present: alert, oriented X3 - Psychiatric Psychiatric exam: Present: normal affect, normal mood - Skin Skin exam: Present: normal color, warm, dry Results - Labs CBC & BMP: 02/01/17 05:22 02/01/17 05:22 Lab Results: I have reviewed the past 24 hour labs - Diagnostic Findings Procedure: Ultrasound: report reviewed by me
--- NOTE | 2017-02-01 11:39 | Hospitalist Progress Note ---
Assessment and Plan (1) Gastric ulcer Status: Acute Assessment and plan: This is the cause of the upper gastrointestinal bleeding the patient experienced earlier in the hospitalization. He is being treated with proton pump inhibition and has received packed red blood cell transfusion. Current Visit: Yes Qualifiers: Gastric ulcer chronicity: acute Gastric ulcer complication status: with hemorrhage Qualified Code(s): K25.0 - Acute gastric ulcer with hemorrhage (2) Cirrhosis Status: Acute Assessment and plan: Continue to monitor closely. Lactulose and Xifaxan for elevated ammonia levels and encephalopathy. Add Lasix and Aldactone as well as potassium replacement. Current Visit: No Qualifiers: Hepatic cirrhosis type: alcoholic cirrhosis (3) UTI (urinary tract infection) Status: Acute Assessment and plan: E. coli UTI sensitive to Rocephin. Continue IV Rocephin daily. Discontinue Vallejo catheter. Current Visit: No Qualifiers: Urinary tract infection type: acute cystitis Hematuria presence: with hematuria Qualified Code(s): N30.01 - Acute cystitis with hematuria (4) Hepatic encephalopathy Status: Resolved Current Visit: No (5) UGIB (upper gastrointestinal bleed) Problem details: Likely has melena from a gastritis due to alcohol/ nonsteroidals Status: Resolved Current Visit: No (6) Acute blood loss anemia Status: Resolved Current Visit: Yes Hospitalist: Subjective Interval history: Patient seen and examined. No acute events overnight. Case discussed with nursing staff. Labs reviewed. Significant other at the bedside. Patient was pleasant and cooperative. His caregiver reports that this is his baseline mental status. Significant swelling is noted in the right upper extremity. Hematuria is noted in the Vallejo catheter. He is currently receiving Rocephin for E. coli UTI. He appears volume overloaded and diuretics will be started today. Exam - Constitutional Vitals: Period Temp Pulse Resp BP Sys/Newton Pulse Ox Last 24 Hr 97.3 F-99.3 F 71-91 12-20 88-125/54-78 94-100 Exam: Constitutional System: Mild distress. No tremulousness. Appears chronically ill. Head: Normocephalic, atraumatic. Ears, Nose and Throat System: No pain or tenderness. No epistaxis or discharge. Poor dentition. Eyes System: Pupils equal, round, and reactive. Extraocular muscles intact. Scleral icterus noted Neck: Supple, without adenopathy, No thyromegaly, neck mass, or prior surgery apparent. Respiratory System: Chest clear to auscultation. Cardiovascular System: Heart with regular rate and rhythm. No murmur. GI System: Abdomen soft, nontender. Normo active bowel sounds present. Musculoskeletal System: limbs with bilateral pitting pedal edema. Full distal pulses. Normal capillary refill. Neurological System: No discernable sensory deficit. No aphasia Psychiatric System: Conversation is rational Results - Labs CBC & BMP: 02/01/17 05:22 02/01/17 05:22 Lab Results: I have reviewed the past 24 hour labs
[2017-02-01] MEDS: SODIUM ACETATE 50 MEQ in SODIUM CHLORIDE 0.45% 1,000 ML IV SCH (12:02)
[2017-02-01] MEDS: SPIRONOLACTONE 25 MG TABLET PO SCH ×2 (12:04→20:58)
[2017-02-01 12:42] LABS: Hematocrit 28.6 VOL% (42.0-52.0); Hemoglobin 10.4 GM/DL (14.0-18.0)
--- NOTE | 2017-02-01 14:21 | Nephrology Progress Note ---
Nephrology - PN: Subj Interval history: Mr. Quijano is seen in follow-up of his acute renal failure he is improved and his sensorium is now back to his baseline. Creatinine is down to 1.8. I agree with Dr. Reyna that he is volume overloaded he has peripheral edema and I think diuretics are certainly reasonable. He is not short of breath and no changes are made. Again I agree with the diuretics Exam (PN)-Nephrology - Vital Signs Vital signs: Period Temp Pulse Resp BP Sys/Newton Pulse Ox Last 24 Hr 97.3 F-99.3 F 71-91 12-20 94-125/54-78 94-100 - Lab 02/01/17 12:20 02/01/17 05:22 Most recent lab results ABG pH 7.418 (7.35-7.45) 01/31/17 09:18 ABG pCO2 28.3 MM HG (35-48) L 01/31/17 09:18 ABG pO2 94.8 MM HG (80-95) 01/31/17 09:18 ABG HCO3 17.9 MMOL/L (20-26) L 01/31/17 09:18 ABG O2 Saturation 96.8 % (95-100) 01/31/17 09:18 Calcium 8.3 MG/DL (8.5-10.1) L 02/01/17 05:22 Magnesium 2.5 MG/DL (1.8-2.4) H 01/30/17 09:04 Assessment and Plan (1) Acute renal failure Status: Acute Assessment and plan: Due to volume depletion from his GI bleed Current Visit: No (2) UGIB (upper gastrointestinal bleed) Problem details: Likely has melena from a gastritis due to alcohol/ nonsteroidals Status: Resolved Current Visit: No
[2017-02-01] MEDS: cefTRIAXone 2,000 MG in SODIUM CHLORIDE 0.9% 100 ML IV SCH (15:20)
[2017-02-01] MEDS: DESITIN 4OZ/NYSTATIN 15 GRAM MIXTURE PASTE TOP SCH ×2 (15:20→21:41)
[2017-02-01] MEDS: BACITRACIN OINT 0.9 GM PACK TOP SCH (15:21)
[2017-02-01] MEDS: FUROSEMIDE 40 MG/4 ML VIAL IV SCH (15:21)
[2017-02-01] MEDS: POTASSIUM CHLORIDE 20 MEQ TABLET PO PRN ×2 (18:29→22:01)
[2017-02-02] MEDS: POTASSIUM CHLORIDE 20 MEQ TABLET PO PRN ×3 (05:57→19:06)
[2017-02-02 08:44] LABS: Albumin 1.4 G/DL (3.4-5.0); Bilirubin,Total 3.9 MG/DL (0.2-1.0); Calcium 8.4 MG/DL (8.5-10.1); Osmolality,Calculated 293.1 MOS/KG (273-304); Potassium 3.4 MMOL/L (3.5-5.1)
[2017-02-02] MEDS: LACTULOSE 20 GM/30 ML UDCUP PO SCH ×3 (08:49→20:33)
[2017-02-02] MEDS: FUROSEMIDE 40 MG/4 ML VIAL IV SCH ×2 (08:49→15:47)
[2017-02-02] MEDS: FOLIC ACID 0.4 MG TABLET PO SCH (08:49)
[2017-02-02] MEDS: MULTIVITAMIN (CENTRUM) TABLET PO SCH (08:49)
[2017-02-02] MEDS: THIAMINE 100 MG TABLET PO SCH (08:49)
[2017-02-02] MEDS: CYANOCOBALAMIN 500 MCG TABLET PO SCH (08:49)
[2017-02-02] MEDS: SPIRONOLACTONE 25 MG TABLET PO SCH ×2 (08:49→20:33)
[2017-02-02] MEDS: PANTOPRAZOLE 40 MG VIAL IV SCH ×2 (08:55→20:32)
--- NOTE | 2017-02-02 09:43 | Gastrointestinal Progress Note ---
Assessment and Plan (1) Symptomatic anemia Status: Acute Assessment and plan: 02/01-no overt bleeding. H&H is stable at 02/27. Ultrasound results noted. No BM 2 days. Increase lactulose to 3 times daily. continue to monitor present time. Plan an addendum to followed by Dr. Nathan. 01/31-EGD findings noted as below. H&H is stable at this time. Remains n.p.o. due to lethargic. Continue to monitor present time. Plan an addendum to follow Dr. Nathan. Current Visit: Yes Gastroenterology - PN: Subj Interval history: CC: Anemia Pt is seen, awake and alert, fairly well oriented today. States he is feeling better today. He denies any nausea or vomiting. Has a good appetite and tolerating his diet well. His Lactulose was increased on yesterday however no bowel movements noted to be recorded, however pt states he has had "several". Will verify with nursing staff. No reports of overt bleeding. LFTs down slightly today. Abdomen is soft, nontender. ROS: Denies SOB or chest pain Exam (Progress Note) - Constitutional Vitals: Period Temp Pulse Resp BP Sys/Newton Pulse Ox Last 24 Hr 97.3 F-98.7 F 77-86 18-20 114-138/65-78 95-100 - Other Additional findings: General appearance: normal weight, no acute distress - Head Head exam: Present: normal inspection, normocephalic - Eye Eye exam: Present: scleral icterus, other (Lids and conjunctive are unremarkable ) - ENT ENT exam: Present: normal exam, normal oropharynx - Neck Neck exam: Present: normal inspection - Respiratory Respiratory exam: Present: clear to auscultation bilaterally. Absent: rales, rhonchi, wheezes - Cardiovascular Cardiovascular exam: Present: regular rate and rhythm. Absent: diastolic murmur , JVD, systolic murmur - GI/Abdominal GI/Abdominal exam: Present: normal bowel sounds, soft. Absent: ascites, distended, mass, organomegaly, tenderness - Extremities Exam Extremities exam: Present: normal inspection, full ROM - Back Exam Back exam: Present: normal inspection - Neurological Exam Neurological exam: Present: alert, oriented X3 - Psychiatric Psychiatric exam: Present: normal affect, normal mood - Skin Skin exam: Present: normal color, warm, dry Results - Labs CBC & BMP: 02/01/17 12:20 02/02/17 08:00 Lab Results: I have reviewed the past 24 hour labs
--- NOTE | 2017-02-02 11:26 | Nephrology Progress Note ---
Nephrology - PN: Subj Interval history: Mr. Quijano is seen in follow-up of his acute renal failure. He is much improved with a serum creatinine now back to his baseline of 1.4. He still has some edema particularly of the lower extremities but is able to lie flat and is not short of breath. He is eating well. Will sign off. Please reconsult if needed Exam (PN)-Nephrology - Vital Signs Vital signs: Period Temp Pulse Resp BP Sys/Newton Pulse Ox Last 24 Hr 97.6 F-98.7 F 77-86 18-20 114-138/65-73 95-100 - Lab 02/01/17 12:20 02/02/17 08:00 Most recent lab results ABG pH 7.418 (7.35-7.45) 01/31/17 09:18 ABG pCO2 28.3 MM HG (35-48) L 01/31/17 09:18 ABG pO2 94.8 MM HG (80-95) 01/31/17 09:18 ABG HCO3 17.9 MMOL/L (20-26) L 01/31/17 09:18 ABG O2 Saturation 96.8 % (95-100) 01/31/17 09:18 Calcium 8.4 MG/DL (8.5-10.1) L 02/02/17 08:00 Magnesium 2.5 MG/DL (1.8-2.4) H 01/30/17 09:04 Assessment and Plan (1) Acute renal failure Status: Acute Assessment and plan: Due to volume depletion from his GI bleed Current Visit: No (2) UGIB (upper gastrointestinal bleed) Problem details: Likely has melena from a gastritis due to alcohol/ nonsteroidals Status: Resolved Current Visit: No
[2017-02-02] MEDS: DESITIN 4OZ/NYSTATIN 15 GRAM MIXTURE PASTE TOP SCH ×2 (11:36→20:43)
[2017-02-02] MEDS: BACITRACIN OINT 0.9 GM PACK TOP SCH (11:36)
--- NOTE | 2017-02-02 12:27 | Hospitalist Progress Note ---
Assessment and Plan (1) Gastric ulcer Status: Acute Assessment and plan: This is the cause of the upper gastrointestinal bleeding the patient experienced earlier in the hospitalization. He is being treated with proton pump inhibition and has received packed red blood cell transfusion. Current Visit: Yes Qualifiers: Gastric ulcer chronicity: acute Gastric ulcer complication status: with hemorrhage Qualified Code(s): K25.0 - Acute gastric ulcer with hemorrhage (2) Cirrhosis Status: Acute Assessment and plan: Continue to monitor closely. Lactulose and Xifaxan for elevated ammonia levels and encephalopathy. Continue Lasix and Aldactone as well as potassium replacement. Current Visit: No Qualifiers: Hepatic cirrhosis type: alcoholic cirrhosis (3) UTI (urinary tract infection) Status: Acute Assessment and plan: E. coli UTI sensitive to Rocephin. Continue IV Rocephin daily. Discontinue Vallejo catheter. Current Visit: No Qualifiers: Urinary tract infection type: acute cystitis Hematuria presence: with hematuria Qualified Code(s): N30.01 - Acute cystitis with hematuria (4) Hepatic encephalopathy Status: Resolved Current Visit: No (5) UGIB (upper gastrointestinal bleed) Problem details: Likely has melena from a gastritis due to alcohol/ nonsteroidals Status: Resolved Current Visit: No (6) Acute blood loss anemia Status: Resolved Current Visit: Yes (7) Physical debility Status: Chronic Assessment and plan: Consult PT OT Current Visit: Yes Hospitalist: Subjective Interval history: Patient seen and examined. No acute events overnight. Case discussed with nursing staff. Labs reviewed. Significant other at the bedside. Diuresing well. H&H stable. Plans to go home with home health. Exam - Constitutional Vitals: Period Temp Pulse Resp BP Sys/Newton Pulse Ox Last 24 Hr 97.6 F-98.7 F 76-86 18-22 114-138/65-76 95-100 Exam: Constitutional System: No distress. No tremulousness. Appears chronically ill. Head: Normocephalic, atraumatic. Ears, Nose and Throat System: No pain or tenderness. No epistaxis or discharge. Poor dentition. Eyes System: Pupils equal, round, and reactive. Extraocular muscles intact. Scleral icterus noted Neck: Supple, without adenopathy, No thyromegaly, neck mass, or prior surgery apparent. Respiratory System: Chest clear to auscultation. Cardiovascular System: Heart with regular rate and rhythm. No murmur. GI System: Abdomen soft, nontender. Normo active bowel sounds present. Musculoskeletal System: limbs with bilateral pitting pedal edema. Full distal pulses. Normal capillary refill. Neurological System: No discernable sensory deficit. No aphasia Psychiatric System: Conversation is rational Results - Labs CBC & BMP: 02/01/17 12:20 02/02/17 08:00 Lab Results: I have reviewed the past 24 hour labs
[2017-02-02] MEDS: cefTRIAXone 2,000 MG in SODIUM CHLORIDE 0.9% 100 ML IV SCH (13:38)
[2017-02-03] MEDS: POTASSIUM CHLORIDE 20 MEQ TABLET PO PRN (03:32)
[2017-02-03 03:33] LABS: Albumin 1.5 G/DL (3.4-5.0); Bilirubin,Total 3.9 MG/DL (0.2-1.0); Calcium 8.7 MG/DL (8.5-10.1); Osmolality,Calculated 290.1 MOS/KG (273-304); Potassium 3.6 MMOL/L (3.5-5.1); Total Protein 5.2 G/DL (6.4-8.3)
[2017-02-03] MEDS: MULTIVITAMIN (CENTRUM) TABLET PO SCH (09:08)
[2017-02-03] MEDS: FOLIC ACID 0.4 MG TABLET PO SCH (09:08)
[2017-02-03] MEDS: THIAMINE 100 MG TABLET PO SCH (09:08)
[2017-02-03] MEDS: SPIRONOLACTONE 25 MG TABLET PO SCH ×2 (09:08→20:53)
[2017-02-03] MEDS: LACTULOSE 20 GM/30 ML UDCUP PO SCH ×3 (09:08→20:53)
[2017-02-03] MEDS: CYANOCOBALAMIN 500 MCG TABLET PO SCH (09:08)
[2017-02-03] MEDS: BACITRACIN OINT 28.35 GM TUBE TOP SCH (09:09)
[2017-02-03] MEDS: DESITIN 4OZ/NYSTATIN 15 GRAM MIXTURE PASTE TOP SCH ×2 (09:09→20:53)
[2017-02-03] MEDS: FUROSEMIDE 40 MG/4 ML VIAL IV SCH ×2 (09:24→16:26)
[2017-02-03] MEDS: PANTOPRAZOLE 40 MG VIAL IV SCH ×2 (09:36→20:53)
--- NOTE | 2017-02-03 11:35 | Hospitalist Progress Note ---
Assessment and Plan (1) Gastric ulcer Status: Acute Assessment and plan: This is the cause of the upper gastrointestinal bleeding the patient experienced earlier in the hospitalization. He is being treated with proton pump inhibition and has received packed red blood cell transfusion. Current Visit: Yes Qualifiers: Gastric ulcer chronicity: acute Gastric ulcer complication status: with hemorrhage Qualified Code(s): K25.0 - Acute gastric ulcer with hemorrhage (2) Cirrhosis Status: Acute Assessment and plan: Continue to monitor closely. Lactulose and Xifaxan for elevated ammonia levels and encephalopathy. Continue Lasix and Aldactone as well as potassium replacement. Current Visit: No Qualifiers: Hepatic cirrhosis type: alcoholic cirrhosis (3) UTI (urinary tract infection) Status: Acute Assessment and plan: E. coli UTI sensitive to Rocephin. Continue IV Rocephin daily. Discontinue Vallejo catheter. Current Visit: No Qualifiers: Urinary tract infection type: acute cystitis Hematuria presence: with hematuria Qualified Code(s): N30.01 - Acute cystitis with hematuria (4) Acute blood loss anemia Status: Resolved Current Visit: Yes (5) Physical debility Status: Chronic Assessment and plan: Consult PT OT Current Visit: Yes Hospitalist: Subjective Interval history: Patient seen and examined. No acute events overnight. Case discussed with nursing staff. Labs reviewed. Renal function improving. Diuresis in progress. He plans to go home with family and home health care. Continue diuresis and physical therapy and plan for discharge on Monday. Exam - Constitutional Vitals: Period Temp Pulse Resp BP Sys/Newton Pulse Ox Last 24 Hr 97.0 F-98.4 F 70-79 18-20 98-142/64-89 95-100 Exam: Constitutional System: No distress. No tremulousness. Appears chronically ill. Head: Normocephalic, atraumatic. Ears, Nose and Throat System: No pain or tenderness. No epistaxis or discharge. Poor dentition. Eyes System: Pupils equal, round, and reactive. Extraocular muscles intact. Scleral icterus noted Neck: Supple, without adenopathy, No thyromegaly, neck mass, or prior surgery apparent. Respiratory System: Chest clear to auscultation. Cardiovascular System: Heart with regular rate and rhythm. No murmur. GI System: Abdomen soft, nontender. Normo active bowel sounds present. Musculoskeletal System: limbs with bilateral pitting pedal edema. Full distal pulses. Normal capillary refill. Neurological System: No discernable sensory deficit. No aphasia Psychiatric System: Conversation is rational Results - Labs CBC & BMP: 02/01/17 12:20 02/03/17 02:11 Lab Results: I have reviewed the past 24 hour labs
[2017-02-03] MEDS: ALBUMIN 25% 25 GM in PREMIX 1 EACH IV SCH ×2 (11:49→20:54)
[2017-02-03] MEDS: cefTRIAXone 2,000 MG in SODIUM CHLORIDE 0.9% 100 ML IV SCH (13:48)
[2017-02-04 04:31] LABS: Basophils % 0.7 % (0.0-0.8); Eosinophils # 0.1 10*3/uL (0.0-0.87); Eosinophils % 2.4 % (0.00-10.9); Hematocrit 27.6 VOL% (42.0-52.0); Hemoglobin 9.6 GM/DL (14.0-18.0); Immature Granulocytes % 1.4 %; Immature Granulocytes Absolute 0.08 #; Lymphocytes # 1.5 10*3/uL (1.4-4.0); Lymphocytes % 24.9 % (21.2-54.2); Mean Corpuscular HGB Conc 34.8 GM/DL (32-36); Mean Corpuscular Hemoglobin 31 PG (27-34); Mean Corpuscular Volume 89.3 FL (87-102); Mean Platelet Volume 11.7 FL (9.6-12.0); Monocytes # 0.6 10*3/uL (0.11-0.8); Monocytes % 10.9 % (1.7-12.7); NRBC # 0.02 10*3/uL; Neutrophils # 3.5 10*3/uL (1.4-7.4); Neutrophils % 59.7 % (38.7-73.9); Platelet Count 109 T/CUMM (130-400); Red Blood Count 3.09 MC/CUMM (3.8-5.5); Red Cell Distribution Width 22.3 % (9.3-17.3); White Blood Count 5.9 T/CUMM (4-12)
[2017-02-04] MEDS: ALBUMIN 25% 25 GM in PREMIX 1 EACH IV SCH (05:02)
[2017-02-04 05:03] LABS: Calcium 8.9 MG/DL (8.5-10.1); Potassium 3.7 MMOL/L (3.5-5.1); Total Protein 5.7 G/DL (6.4-8.3)
[2017-02-04 05:20] LABS: Anisocytosis 1+; Hypochromasia 1+; Platelet Estimate Adequate; Target Cells 1+
--- NOTE | 2017-02-04 07:59 | Hospitalist Progress Note ---
Assessment and Plan (1) UGIB (upper gastrointestinal bleed) Problem details: Likely has melena from a gastritis due to alcohol/ nonsteroidals Status: Resolved Assessment and plan: The patient is receiving supportive care for the upper GI bleed. Will recheck blood counts tomorrow and continue supportive care aimed at returning him to independent status and discharge home to his house near the hospital. Current Visit: No (2) Cirrhosis Status: Acute Current Visit: No Qualifiers: Hepatic cirrhosis type: alcoholic cirrhosis (3) CVA, old, hemiparesis Status: Chronic Current Visit: No Hospitalist: Subjective Interval history: Mr. Quijano is being treated for cirrhotic liver disease including GI bleed. The patient has been stable without significant bleeding in the last 24 hours. The patient has some hepatic encephalopathy. The patient is not yet strong enough for discharge home where he lives independently. Exam - Constitutional Vitals: Period Temp Pulse Resp BP Sys/Newton Pulse Ox Last 24 Hr 97.5 F-98.5 F 73-86 18-20 107-137/68-90 96-99 General appearance: no acute distress - Respiratory Respiratory exam: Present: clear to auscultation bilaterally - Cardiovascular Cardiovascular exam: Present: regular rate and rhythm - GI/Abdominal GI/Abdominal exam: Present: normal bowel sounds. Absent: tenderness Results - Labs CBC & BMP: 02/04/17 03:12 02/04/17 03:12 Lab Results: I have reviewed the past 24 hour labs
[2017-02-04] MEDS: THIAMINE 100 MG TABLET PO SCH (09:23)
[2017-02-04] MEDS: MULTIVITAMIN (CENTRUM) TABLET PO SCH (09:23)
[2017-02-04] MEDS: FOLIC ACID 0.4 MG TABLET PO SCH (09:23)
[2017-02-04] MEDS: CYANOCOBALAMIN 500 MCG TABLET PO SCH (09:23)
[2017-02-04] MEDS: SPIRONOLACTONE 25 MG TABLET PO SCH ×2 (09:23→20:35)
[2017-02-04] MEDS: PANTOPRAZOLE 40 MG VIAL IV SCH ×2 (09:24→20:33)
[2017-02-04] MEDS: LACTULOSE 20 GM/30 ML UDCUP PO SCH ×3 (09:24→20:33)
[2017-02-04] MEDS: FUROSEMIDE 40 MG/4 ML VIAL IV SCH ×2 (09:24→16:04)
[2017-02-04] MEDS: DESITIN 4OZ/NYSTATIN 15 GRAM MIXTURE PASTE TOP SCH ×2 (12:59→20:35)
[2017-02-04] MEDS: BACITRACIN OINT 28.35 GM TUBE TOP SCH (12:59)
[2017-02-04] MEDS: cefTRIAXone 2,000 MG in SODIUM CHLORIDE 0.9% 100 ML IV SCH (14:19)
[2017-02-05 03:39] LABS: Basophils # 0.1 10*3/uL (0.0-0.2); Basophils % 1.4 % (0.0-0.8); Eosinophils # 0.1 10*3/uL (0.0-0.87); Eosinophils % 2.5 % (0.00-10.9); Hematocrit 28.9 VOL% (42.0-52.0); Immature Granulocytes Absolute 0.05 #; Lymphocytes # 1.4 10*3/uL (1.4-4.0); Lymphocytes % 26.8 % (21.2-54.2); Mean Corpuscular HGB Conc 34.6 GM/DL (32-36); Mean Corpuscular Hemoglobin 31 PG (27-34); Mean Corpuscular Volume 89.8 FL (87-102); Mean Platelet Volume 11.9 FL (9.6-12.0); Monocytes # 0.6 10*3/uL (0.11-0.8); Monocytes % 10.7 % (1.7-12.7); Neutrophils % 57.6 % (38.7-73.9); Platelet Count 130 T/CUMM (130-400); Red Blood Count 3.22 MC/CUMM (3.8-5.5); Red Cell Distribution Width 22.1 % (9.3-17.3); White Blood Count 5.2 T/CUMM (4-12)
[2017-02-05 04:02] LABS: Albumin 2.3 G/DL (3.4-5.0); Bilirubin,Total 4.6 MG/DL (0.2-1.0); Calcium 9.2 MG/DL (8.5-10.1); Potassium 3.7 MMOL/L (3.5-5.1); Total Protein 6.2 G/DL (6.4-8.3)
[2017-02-05 07:30] LABS: Hypochromasia 2+; Macrocytosis 1+
[2017-02-05] MEDS: SPIRONOLACTONE 25 MG TABLET PO SCH ×2 (09:43→20:14)
[2017-02-05] MEDS: FOLIC ACID 0.4 MG TABLET PO SCH (09:43)
[2017-02-05] MEDS: CYANOCOBALAMIN 500 MCG TABLET PO SCH (09:44)
[2017-02-05] MEDS: LACTULOSE 20 GM/30 ML UDCUP PO SCH ×3 (09:44→20:13)
[2017-02-05] MEDS: THIAMINE 100 MG TABLET PO SCH (09:44)
[2017-02-05] MEDS: MULTIVITAMIN (CENTRUM) TABLET PO SCH (09:44)
[2017-02-05] MEDS: DESITIN 4OZ/NYSTATIN 15 GRAM MIXTURE PASTE TOP SCH ×2 (09:45→20:14)
[2017-02-05] MEDS: FUROSEMIDE 40 MG/4 ML VIAL IV SCH ×2 (09:45→17:16)
[2017-02-05] MEDS: PANTOPRAZOLE 40 MG VIAL IV SCH ×2 (09:46→20:13)
[2017-02-05] MEDS: BACITRACIN OINT 28.35 GM TUBE TOP SCH (09:46)
--- NOTE | 2017-02-05 11:37 | Hospitalist Progress Note ---
Assessment and Plan (1) Gastric ulcer Status: Acute Assessment and plan: 1)UGIB from gastric ulcers with acute blood loss anemia- on PPI. Ok for discharge per GI. 2)debility- he has not been up since admission he says. PT to see today. 3)dispo- home soon. lives with his he says. Nurses plan to talk to her about his discharge plan today. 4)cirrhosis- due to alcohol. no varices at EGD. Current Visit: Yes Qualifiers: Gastric ulcer chronicity: acute Gastric ulcer complication status: with hemorrhage Qualified Code(s): K25.0 - Acute gastric ulcer with hemorrhage (2) CVA, old, hemiparesis Status: Chronic Current Visit: No (3) Cirrhosis Status: Acute Current Visit: No Qualifiers: Hepatic cirrhosis type: alcoholic cirrhosis (4) Acute blood loss anemia Status: Resolved Current Visit: Yes (5) Physical debility Status: Chronic Current Visit: Yes Hospitalist: Subjective Interval history: Mr Quijano is feeling ok today but has not yet been out of bed because PT didn't come yesterday. He lives with his . He will get up with PT today and if he does well can go home late today or tomorrow. Exam - Constitutional Vitals: Period Temp Pulse Resp BP Sys/Newton Pulse Ox Last 24 Hr 97.2 F-98.7 F 76-86 18-20 113-120/66-75 92-100 General appearance: normal weight, no acute distress - Eye Eye exam: Present: EOMI. Absent: scleral icterus - Respiratory Respiratory exam: Present: clear to auscultation bilaterally - Cardiovascular Cardiovascular exam: Present: regular rate and rhythm - GI/Abdominal GI/Abdominal exam: Present: normal bowel sounds, soft - Extremities Exam Extremities exam: Absent: edema Results - Labs CBC & BMP: 02/05/17 01:56 02/05/17 01:56 Lab Results: I have reviewed the past 24 hour labs
[2017-02-05] MEDS: cefTRIAXone 2,000 MG in SODIUM CHLORIDE 0.9% 100 ML IV SCH (14:17)
--- NOTE | 2017-02-06 09:48 | Discharge Summary ---
Hospital Course - Hospital Course Hospital Course: 61-year-old -[place] male with history of hypertension, alcohol abuse, and stroke admitted by the hospitalist service on 01/27/2017 with GI bleed, acute renal failure and hypokalemia. Patient was resuscitated with IV fluids and IV PPIs were initiated. GI was consulted. Dr. Nathan performed an EGD on 01/30/2017 where he found multiple gastric ulcers with no active bleeding. He recommended continuing his PPI therapy and he also received red blood cell transfusion as well. Patient also found to have alcoholic cirrhosis and this was monitored closely during this hospitalization because he did develop some hepatic encephalopathy. He was started on lactulose and spironolactone which will be continued for home. He also had a urinary tract infection as well that was treated appropriately. Patient is feeling a little better. He still states he is a little weak but he uses wheelchair for mobility at home. Will order home health physical therapy to assist him to his baseline function at home. He is tolerating a diet and he has had no further bleeding. He has been counseled multiple times by multiple physicians in alcohol cessation. His blood pressure medicines have also been adjusted. He will follow-up with his primary care physician in [address] Nathan in 1 month. Complete discharge instructions were given to the patient. Care coordination, chart review, and completed discharge paperwork took approximately 45 minutes. - Time spent with patient Time with patient DS: Greater than 30 minutes Diagnosis - Discharge Diagnosis (1) Hypokalemia Status: Resolved (2) CVA, old, hemiparesis Status: Chronic (3) Hepatic encephalopathy Status: Resolved (4) Alcoholic hepatitis Status: Chronic (5) Cirrhosis Status: Chronic (6) UTI (urinary tract infection) Status: Resolved (7) Acute renal failure Status: Resolved (8) UGIB (upper gastrointestinal bleed) Status: Resolved Specialty Discharge - Follow Up or Referrals Follow up with: your,PCP [Other] - 1 Week Chalo Nathan MD [Physician] - Discharge Plan - Discharge Data Disposition: Home Health Service Condition at Discharge: Stable Discharge Diet: low salt diet Activity: resume usual activities as tolerated Hygiene: no restrictions Contact your physician if you experience:: Bleeding - Discharge Medications New Folic Acid Tab 0.4 mg PO DAILY #30 tablet Furosemide Tab [Lasix Tab] 40 mg PO DAILY #30 tablet Lactulose Liquid [Chronulac] 20 gm PO TID #90 Pantoprazole Tab [Protonix Tab] 40 mg PO BID #60 tablet Spironolactone [Aldactone] 25 mg PO BID #60 tablet Thiamine Tab [Vitamin B1 Tab] 100 mg PO DAILY #30 tablet Continue Multivitamin [Multivitamins] 1 each PO QAM Cyanocobalamin Tab [Vitamin B12 Tab] 500 mcg PO QAM Discontinued Metoprolol Tartrate Tab [Lopressor Tab] 50 mg PO BID hydroCHLOROthiazide [Hydrochlorothiazide] 25 mg PO QAM - Follow Up or Referral Follow Up: Chalo Nathan MD [Physician] - your,PCP [Other] - 1 Week - Forms/Instructions Exam - Constitutional Vitals: Period Temp Pulse Resp BP Sys/Newton Pulse Ox Last 24 Hr 97.6 F-98.3 F 80-89 18-20 112-138/67-104 94-99 Exam: 61-year-old -[place] male, no acute distress, alert and oriented Chest clear CV regular rate and rhythm Abdomen mildly distended with positive fluid wave Extremities no edema DS: Provider Date of admission: 01/27/17 16:21 Primary care physician: Alley Mills Attending physician on admission: Kaylan Simmons MD Consults: 01/27/17 16:46 Consult to Physician [CONS] Routine Comment: Consulting Provider: Sanju Mckeon V Person Notified: Dr Mckeon Date Notified: 01/28/17 Time Notified: 08:12 Consult Notification Comment: will see on rounds 01/27/17 16:53 Consult to Wound Care - [place] [CONS] Routine Reason for Wound Care: Wound Care Management 01/27/17 18:24 Consult to Physician [CONS] Routine Comment: Consulting Provider: Blane Del Cid Person Notified: Dr Del Cid Date Notified: 01/28/17 Time Notified: 08:05 Consult Notification Comment: will see on rounds today 02/02/17 12:29 Consult to Occupational Therapy [CONS] Routine Reason for Occupational Therapy: Evaluate and Treat Start Therapy: Today Consult to Physical Therapy [CONS] Routine Reason for Physical Therapy: Evaluate and Treat Start Therapy: Today Discharging clinician: STEVEN Smith Expected date of discharge: 02/06/17
[2017-02-06] MEDS: FUROSEMIDE 40 MG/4 ML VIAL IV SCH (10:10)
[2017-02-06] MEDS: PANTOPRAZOLE 40 MG VIAL IV SCH (10:15)
[2017-02-06] MEDS: CYANOCOBALAMIN 500 MCG TABLET PO SCH (10:19)
[2017-02-06] MEDS: THIAMINE 100 MG TABLET PO SCH (10:19)
[2017-02-06] MEDS: DESITIN 4OZ/NYSTATIN 15 GRAM MIXTURE PASTE TOP SCH (10:24)
[2017-02-06] MEDS: MULTIVITAMIN (CENTRUM) TABLET PO SCH (10:31)
[2017-02-06] MEDS: SPIRONOLACTONE 25 MG TABLET PO SCH (10:31)
[2017-02-06] MEDS: FOLIC ACID 0.4 MG TABLET PO SCH (10:34)
[2017-02-06] MEDS: LACTULOSE 20 GM/30 ML UDCUP PO SCH (10:36)
[2017-02-06] MEDS: BACITRACIN OINT 28.35 GM TUBE TOP SCH (10:36)
[2017-02-06 11:41] VITALS: BP 111/77
== END 2017-02-06 13:40 | disposition home or self-care (01) | DRG 241 ==
LOC: EDBD → EDUNIT# → N.ED 14:00 → N.EDINP 16:21 → SUATTDRO 16:21 → N.EDINP 18:07 → N.4E 18:21 → N.ICU 01-29 22:04 → N.3E 01-31 21:36 → UNDODISIN 02-01 16:42
PROVIDERS: ADMIT Internal Medicine; ATTEND Internal Medicine

== ENCOUNTER 2017-04-02 16:32 | Inpatient (IN) ==
[2017-04-02 18:04] LABS: Basophils % 0.3 % (0.0-0.8); Eosinophils # 0.1 10*3/uL (0.0-0.87); Eosinophils % 1.2 % (0.00-10.9); Hematocrit 29.1 VOL% (42.0-52.0); Hemoglobin 10.1 GM/DL (14.0-18.0); Immature Granulocytes % 0.3 %; Immature Granulocytes Absolute 0.02 #; Lymphocytes # 1.2 10*3/uL (1.4-4.0); Lymphocytes % 20.6 % (21.2-54.2); Mean Corpuscular HGB Conc 34.7 GM/DL (32-36); Mean Corpuscular Hemoglobin 34 PG (27-34); Mean Corpuscular Volume 98.6 FL (87-102); Mean Platelet Volume 10.9 FL (9.6-12.0); Monocytes # 0.5 10*3/uL (0.11-0.8); Neutrophils # 4.1 10*3/uL (1.4-7.4); Neutrophils % 68.6 % (38.7-73.9); Platelet Count 100 T/CUMM (130-400); Red Blood Count 2.95 MC/CUMM (3.8-5.5); Red Cell Distribution Width 17.7 % (9.3-17.3)
[2017-04-02 18:17] LABS: Apearance,Urine CLEAR (Clear); Bacteria,Urine Occasional /HPF (Few); Bilirubin,Urine Negative (Negative); Blood, Urine Negative (Negative); Glucose,Urine (UA) Negative (Negative); Ketones,Urine Negative (Negative); Mucus,Urine Occasional /LPF (Occasional); Nitrite,Urine Positive (Negative); Protein,Urine Negative; RBC,Urine <1 /HPF (0-4); Squamous Epithelial Cell,Urine Occasional /HPF (0-10); Urine Color Yellow (Yellow); Urine Specific Gravity 1.011 (1.001-1.035); WBC,Urine 1 /HPF (0-6)
[2017-04-02 18:22] LABS: Barbiturates Screen,Urine Negative (Negative); Benzodiazepines Screen,Urine Negative (Negative); Cannabinoid Screen,Urine Negative (Negative); Opiate Screen,Urine Positive (Negative); Phencyclidine Screen,Urine Negative (Negative)
[2017-04-02 18:40] LABS: Alanine Aminotransferase 24 U/L (16-61); Albumin 2.6 G/DL (3.4-5.0); Alkaline Phosphatase 127 U/L (45-117); Aspartate Amino Transferase 45 U/L (0-37); Bilirubin,Indirect 0.6 MG/DL (0.0-1.0); Blood Urea Nitrogen 8 MG/DL (7-18); Calcium 9.2 MG/DL (8.5-10.1); Glucose 101 MG/DL (74-106); Osmolality,Calculated 267.1 MOS/KG (273-304); Sodium 135 MMOL/L (136-145); Total Protein 7.6 G/DL (6.4-8.3)
[2017-04-02] MEDS ORDERED: MORPHINE 2 MG/1 ML SYRINGE IV STA (19:20)
[2017-04-02] MEDS ORDERED: PANTOPRAZOLE 40 MG VIAL IV STA (19:20)
[2017-04-02] MEDS ORDERED: ONDANSETRON 4 MG/2 ML VIAL IV STA (19:20)
[2017-04-02] MEDS ORDERED: PANTOPRAZOLE 40 MG VIAL IV ONE (19:47)
[2017-04-02] MEDS ORDERED: MORPHINE 2 MG/1 ML SYRINGE ONE (19:47)
[2017-04-02] MEDS ORDERED: ONDANSETRON 4 MG/2 ML VIAL ONE (19:47)
[2017-04-02] MEDS ORDERED: ONDANSETRON 4 MG/2 ML VIAL IV PRN (21:35)
[2017-04-02] MEDS ORDERED: ACETAMINOPHEN 325 MG TABLET PO PRN (21:35)
[2017-04-02] MEDS ORDERED: NITROGLYCERIN SL 0.4 MG TABLET SL PRN (21:48)
[2017-04-03] MEDS: METOPROLOL TARTRATE 25 MG TABLET PO SCH ×3 (01:38→21:25)
[2017-04-03 05:22] LABS: Basophils % 0.2 % (0.0-0.8); Eosinophils # 0.1 10*3/uL (0.0-0.87); Eosinophils % 2.2 % (0.00-10.9); Hematocrit 24.2 VOL% (42.0-52.0); Lymphocytes # 1.3 10*3/uL (1.4-4.0); Lymphocytes % 31.8 % (21.2-54.2); Mean Corpuscular HGB Conc 33.9 GM/DL (32-36); Mean Corpuscular Hemoglobin 34 PG (27-34); Mean Corpuscular Volume 99.6 FL (87-102); Monocytes # 0.4 10*3/uL (0.11-0.8); Monocytes % 10.8 % (1.7-12.7); Neutrophils # 2.2 10*3/uL (1.4-7.4); Red Blood Count 2.43 MC/CUMM (3.8-5.5); Red Cell Distribution Width 18.2 % (9.3-17.3)
[2017-04-03 05:30] LABS: Hemoglobin 8.2 GM/DL (14.0-18.0); White Blood Count 4.1 T/CUMM (4-12)
[2017-04-03 05:31] LABS: Platelet Count 83 T/CUMM (130-400)
[2017-04-03 05:45] LABS: Hypochromasia 1+; Platelet Estimate Decreased
[2017-04-03 05:46] LABS: Burr Cells Slight; Giant Platelets Few; Ovalocytes Slight
[2017-04-03 05:58] LABS: Albumin 2.1 G/DL (3.4-5.0); Bilirubin,Total 3.2 MG/DL (0.2-1.0); Calcium 8.7 MG/DL (8.5-10.1); Osmolality,Calculated 272.7 MOS/KG (273-304); Potassium 3.7 MMOL/L (3.5-5.1); Risk Ratio 1.13; Total Protein 6.3 G/DL (6.4-8.3); VLDL CHOLESTEROL 6.4 MG/DL
[2017-04-03] MEDS ORDERED: PANTOPRAZOLE 40 MG TABLET PO SCH ×2 (09:00)
[2017-04-03] MEDS: FOLIC ACID 0.4 MG TABLET PO SCH (10:26)
[2017-04-03] MEDS: MULTIVITAMIN (CENTRUM) TABLET PO SCH (10:26)
[2017-04-03] MEDS: CYANOCOBALAMIN 500 MCG TABLET PO SCH (10:26)
[2017-04-03] MEDS: SPIRONOLACTONE 25 MG TABLET PO SCH ×2 (10:26→21:25)
[2017-04-03] MEDS: SKIN HEALING OINT (AQUAPHOR) 50 GM TUBE TOP PRN ×2 (11:15→18:47)
[2017-04-03] MEDS: LACTULOSE 20 GM/30 ML UDCUP PO SCH ×2 (14:07→17:27)
[2017-04-03] MEDS: THIAMINE 100 MG TABLET PO SCH (14:07)
[2017-04-03] MEDS: PANTOPRAZOLE 40 MG VIAL IV SCH ×2 (14:07→21:30)
[2017-04-04] MEDS: LACTULOSE 20 GM/30 ML UDCUP PO SCH ×4 (00:15→17:31)
[2017-04-04] MEDS: LORazepam 2 MG/1 ML VIAL IV PRN ×2 (05:03→09:01)
[2017-04-04 05:58] LABS: Basophils % 0.3 % (0.0-0.8); Eosinophils # 0.1 10*3/uL (0.0-0.87); Eosinophils % 2.2 % (0.00-10.9); Hematocrit 24.9 VOL% (42.0-52.0); Hemoglobin 8.5 GM/DL (14.0-18.0); Immature Granulocytes % 0.3 %; Immature Granulocytes Absolute 0.01 #; Lymphocytes # 1.2 10*3/uL (1.4-4.0); Lymphocytes % 34.6 % (21.2-54.2); Mean Corpuscular HGB Conc 34.1 GM/DL (32-36); Mean Corpuscular Hemoglobin 34 PG (27-34); Mean Corpuscular Volume 100.8 FL (87-102); Monocytes # 0.4 10*3/uL (0.11-0.8); Neutrophils # 1.8 10*3/uL (1.4-7.4); Neutrophils % 50.6 % (38.7-73.9); Platelet Count 76 T/CUMM (130-400); Red Blood Count 2.47 MC/CUMM (3.8-5.5); Red Cell Distribution Width 18.5 % (9.3-17.3); White Blood Count 3.6 T/CUMM (4-12)
[2017-04-04 06:27] LABS: Burr Cells Slight; Eosinophils 3 % (0-10); Giant Platelets Few; Hypochromasia 1+; Lymphocytes 22 % (20-55); Ovalocytes Slight; Platelet Estimate Decreased; Segmented Neutrophils 69 % (50-85); Total Cells Counted 100
[2017-04-04 06:33] LABS: Calcium 8.7 MG/DL (8.5-10.1); Magnesium 1.8 MG/DL (1.8-2.4); Osmolality,Calculated 279.3 MOS/KG (273-304); Potassium 3.2 MMOL/L (3.5-5.1)
[2017-04-04] MEDS: METOPROLOL TARTRATE 25 MG TABLET PO SCH ×2 (11:49→21:56)
[2017-04-04] MEDS: FOLIC ACID 0.4 MG TABLET PO SCH (11:49)
[2017-04-04] MEDS: SPIRONOLACTONE 25 MG TABLET PO SCH ×2 (11:49→21:56)
[2017-04-04] MEDS: PANTOPRAZOLE 40 MG TABLET PO SCH ×2 (11:49→21:56)
[2017-04-04] MEDS: POTASSIUM CHLORIDE 20 MEQ TABLET PO SCH ×4 (11:49→21:55)
[2017-04-04] MEDS: MULTIVITAMIN (CENTRUM) TABLET PO SCH (11:49)
[2017-04-04] MEDS: THIAMINE 100 MG TABLET PO SCH (11:50)
[2017-04-04] MEDS: CYANOCOBALAMIN 500 MCG TABLET PO SCH (11:51)
[2017-04-04] MEDS: PANTOPRAZOLE 40 MG VIAL IV SCH (11:51)
[2017-04-04] MEDS: LEVOFLOXACIN INJ 750 MG in PREMIX 1 EACH IV SCH (12:24)
[2017-04-04] MEDS: ISOSORBIDE MONONITRATE 30 MG TABLET PO SCH (12:24)
[2017-04-05] MEDS: LACTULOSE 20 GM/30 ML UDCUP PO SCH ×5 (01:27→23:44)
[2017-04-05 05:55] LABS: Basophils % 0.2 % (0.0-0.8); Eosinophils # 0.1 10*3/uL (0.0-0.87); Hematocrit 25.3 VOL% (42.0-52.0); Hemoglobin 8.7 GM/DL (14.0-18.0); Immature Granulocytes % 0.5 %; Immature Granulocytes Absolute 0.02 #; Lymphocytes # 1.2 10*3/uL (1.4-4.0); Lymphocytes % 28.2 % (21.2-54.2); Mean Corpuscular HGB Conc 34.4 GM/DL (32-36); Mean Corpuscular Hemoglobin 35 PG (27-34); Mean Corpuscular Volume 101.2 FL (87-102); Monocytes # 0.5 10*3/uL (0.11-0.8); Monocytes % 11.8 % (1.7-12.7); Neutrophils # 2.5 10*3/uL (1.4-7.4); Neutrophils % 56.3 % (38.7-73.9); Platelet Count 78 T/CUMM (130-400); Red Cell Distribution Width 18.7 % (9.3-17.3); White Blood Count 4.4 T/CUMM (4-12)
[2017-04-05 06:15] LABS: Hypochromasia 1+; Ovalocytes Slight
[2017-04-05 06:16] LABS: Burr Cells Slight; Platelet Estimate Decreased
[2017-04-05 06:29] LABS: Calcium 8.6 MG/DL (8.5-10.1); Magnesium 1.5 MG/DL (1.8-2.4); Osmolality,Calculated 272.7 MOS/KG (273-304); Potassium 3.6 MMOL/L (3.5-5.1)
[2017-04-05] MEDS: METOPROLOL TARTRATE 25 MG TABLET PO SCH ×2 (09:18→21:15)
[2017-04-05] MEDS: FOLIC ACID 0.4 MG TABLET PO SCH (09:18)
[2017-04-05] MEDS: MULTIVITAMIN (CENTRUM) TABLET PO SCH (09:18)
[2017-04-05] MEDS: THIAMINE 100 MG TABLET PO SCH (09:18)
[2017-04-05] MEDS: SPIRONOLACTONE 25 MG TABLET PO SCH ×2 (09:18→21:15)
[2017-04-05] MEDS: PANTOPRAZOLE 40 MG TABLET PO SCH ×2 (09:18→21:15)
[2017-04-05] MEDS: ISOSORBIDE MONONITRATE 30 MG TABLET PO SCH (09:18)
[2017-04-05] MEDS: LEVOFLOXACIN INJ 750 MG in PREMIX 1 EACH IV SCH (13:07)
[2017-04-05] MEDS: LEVOFLOXACIN 750 MG TABLET PO SCH (15:24)
[2017-04-05] MEDS ORDERED: MAGNESIUM SULF RIDER 2 GM in PREMIX 1 EACH IV PRN (16:27)
[2017-04-05] MEDS ORDERED: MAGNESIUM SULF RIDER 4 GM in PREMIX 1 EACH IV PRN (16:27)
[2017-04-05] MEDS: LORazepam 1 MG TABLET PO PRN (16:31)
[2017-04-05] MEDS: MAGNESIUM OXIDE 400 MG TABLET PO SCH (21:15)
[2017-04-06] MEDS: LORazepam 1 MG TABLET PO PRN ×4 (01:12→21:09)
[2017-04-06] MEDS ORDERED: ZIPRASIDONE 20 MG/1 ML VIAL IM ONE (01:30)
[2017-04-06 04:57] LABS: Basophils % 0.4 % (0.0-0.8); Eosinophils # 0.2 10*3/uL (0.0-0.87); Eosinophils % 4.9 % (0.00-10.9); Hematocrit 23.7 VOL% (42.0-52.0); Immature Granulocytes % 0.2 %; Immature Granulocytes Absolute 0.01 #; Lymphocytes # 1.6 10*3/uL (1.4-4.0); Mean Corpuscular HGB Conc 33.8 GM/DL (32-36); Mean Corpuscular Hemoglobin 35 PG (27-34); Monocytes # 0.5 10*3/uL (0.11-0.8); Monocytes % 11.7 % (1.7-12.7); NRBC # 0.02 10*3/uL; Neutrophils # 2.1 10*3/uL (1.4-7.4); Neutrophils % 47.8 % (38.7-73.9); Platelet Count 80 T/CUMM (130-400); White Blood Count 4.5 T/CUMM (4-12)
[2017-04-06 05:32] LABS: Albumin 1.9 G/DL (3.4-5.0); Bilirubin,Direct 1.61 MG/DL (0.0-0.20); Bilirubin,Indirect 1.7 MG/DL (0.0-1.0); Bilirubin,Total 3.3 MG/DL (0.2-1.0); Calcium 8.3 MG/DL (8.5-10.1); Magnesium 1.7 MG/DL (1.8-2.4); Osmolality,Calculated 277.4 MOS/KG (273-304); Potassium 3.7 MMOL/L (3.5-5.1); Total Protein 5.7 G/DL (6.4-8.3)
[2017-04-06 05:33] LABS: Eosinophils 4 % (0-10); Hypochromasia 1+; Lymphocytes 39 % (20-55); Platelet Estimate Decreased; Segmented Neutrophils 52 % (50-85); Total Cells Counted 100
[2017-04-06 05:34] LABS: Giant Platelets Few; Ovalocytes Slight
[2017-04-06] MEDS: LACTULOSE 20 GM/30 ML UDCUP PO SCH ×4 (06:48→21:05)
[2017-04-06] MEDS: SPIRONOLACTONE 25 MG TABLET PO SCH ×3 (09:35→21:09)
[2017-04-06] MEDS: MAGNESIUM OXIDE 400 MG TABLET PO SCH ×3 (09:35→21:09)
[2017-04-06] MEDS: LEVOFLOXACIN 750 MG TABLET PO SCH ×2 (09:35→11:32)
[2017-04-06] MEDS: MULTIVITAMIN (CENTRUM) TABLET PO SCH ×2 (09:35→11:32)
[2017-04-06] MEDS: METOPROLOL TARTRATE 25 MG TABLET PO SCH ×3 (09:35→21:09)
[2017-04-06] MEDS: FOLIC ACID 0.4 MG TABLET PO SCH ×2 (09:35→11:31)
[2017-04-06] MEDS: ISOSORBIDE MONONITRATE 30 MG TABLET PO SCH ×2 (09:35→11:32)
[2017-04-06] MEDS: PANTOPRAZOLE 40 MG TABLET PO SCH ×3 (09:36→21:09)
[2017-04-06] MEDS: THIAMINE 100 MG TABLET PO SCH ×2 (09:36→11:31)
[2017-04-07] MEDS: LACTULOSE 20 GM/30 ML UDCUP PO SCH ×4 (00:25→18:37)
[2017-04-07] MEDS ORDERED: HALOPERIDOL 5 MG/ML AMP IM ONE (01:02)
[2017-04-07 07:27] LABS: Basophils % 0.4 % (0.0-0.8); Eosinophils # 0.2 10*3/uL (0.0-0.87); Eosinophils % 5.9 % (0.00-10.9); Hematocrit 21.2 VOL% (42.0-52.0); Hemoglobin 7.1 GM/DL (14.0-18.0); Immature Granulocytes % 0.4 %; Immature Granulocytes Absolute 0.01 #; Lymphocytes % 38.1 % (21.2-54.2); Mean Corpuscular HGB Conc 33.5 GM/DL (32-36); Mean Corpuscular Hemoglobin 35 PG (27-34); Mean Platelet Volume 11.4 FL (9.6-12.0); Monocytes # 0.3 10*3/uL (0.11-0.8); Monocytes % 9.9 % (1.7-12.7); Neutrophils # 1.2 10*3/uL (1.4-7.4); Neutrophils % 45.3 % (38.7-73.9); Platelet Count 63 T/CUMM (130-400); Red Blood Count 2.02 MC/CUMM (3.8-5.5); Red Cell Distribution Width 19.3 % (9.3-17.3); White Blood Count 2.7 T/CUMM (4-12)
[2017-04-07 07:50] LABS: Hypochromasia Slight; Macrocytosis 1+
[2017-04-07 08:06] LABS: Albumin 1.7 G/DL (3.4-5.0); Bilirubin,Total 1.6 MG/DL (0.2-1.0); Calcium 8.3 MG/DL (8.5-10.1); Osmolality,Calculated 283.8 MOS/KG (273-304); Phosphorous 3.9 MG/DL (2.5-4.9); Potassium 3.9 MMOL/L (3.5-5.1); Total Protein 5.1 G/DL (6.4-8.3)
[2017-04-07] MEDS: SPIRONOLACTONE 25 MG TABLET PO SCH ×2 (09:20→21:05)
[2017-04-07] MEDS: LORazepam 1 MG TABLET PO PRN (09:20)
[2017-04-07] MEDS: THIAMINE 100 MG TABLET PO SCH (09:20)
[2017-04-07] MEDS: ISOSORBIDE MONONITRATE 30 MG TABLET PO SCH (09:22)
[2017-04-07] MEDS: PANTOPRAZOLE 40 MG TABLET PO SCH ×2 (09:22→21:05)
[2017-04-07] MEDS: MULTIVITAMIN (CENTRUM) TABLET PO SCH (09:23)
[2017-04-07] MEDS: FOLIC ACID 0.4 MG TABLET PO SCH (09:23)
[2017-04-07] MEDS: LEVOFLOXACIN 750 MG TABLET PO SCH (09:24)
[2017-04-07] MEDS: MAGNESIUM OXIDE 400 MG TABLET PO SCH ×2 (14:39→21:05)
[2017-04-07] MEDS ORDERED: SODIUM CHLORIDE 0.9% 1,000 ML IV PRN (14:46)
[2017-04-07] MEDS: METOPROLOL TARTRATE 25 MG TABLET PO SCH ×2 (18:36→21:05)
[2017-04-08] MEDS: LACTULOSE 20 GM/30 ML UDCUP PO SCH ×4 (01:10→18:51)
[2017-04-08] MEDS: THIAMINE 100 MG TABLET PO SCH (09:48)
[2017-04-08] MEDS: PANTOPRAZOLE 40 MG TABLET PO SCH ×2 (09:49→20:54)
[2017-04-08] MEDS: ISOSORBIDE MONONITRATE 30 MG TABLET PO SCH (09:49)
[2017-04-08] MEDS: METOPROLOL TARTRATE 25 MG TABLET PO SCH ×2 (09:49→20:54)
[2017-04-08] MEDS: FOLIC ACID 0.4 MG TABLET PO SCH (09:50)
[2017-04-08] MEDS: MULTIVITAMIN (CENTRUM) TABLET PO SCH (09:50)
[2017-04-08] MEDS: LEVOFLOXACIN 750 MG TABLET PO SCH (09:51)
[2017-04-08] MEDS: SPIRONOLACTONE 25 MG TABLET PO SCH ×2 (09:51→20:54)
[2017-04-08] MEDS: MAGNESIUM OXIDE 400 MG TABLET PO SCH ×2 (09:52→20:54)
[2017-04-08] MEDS ORDERED: SODIUM CHLORIDE 0.9% 1,000 ML IV PRN (11:43)
[2017-04-08] MEDS: LORazepam 1 MG TABLET PO PRN (20:54)
[2017-04-08] MEDS: LORazepam 2 MG/1 ML VIAL IV PRN (23:40)
[2017-04-09] MEDS: LACTULOSE 20 GM/30 ML UDCUP PO SCH ×4 (01:59→18:14)
[2017-04-09 09:40] LABS: Basophils % 0.5 % (0.0-0.8); Eosinophils # 0.3 10*3/uL (0.0-0.87); Eosinophils % 5.5 % (0.00-10.9); Immature Granulocytes % 0.3 %; Immature Granulocytes Absolute 0.02 #; Lymphocytes # 1.9 10*3/uL (1.4-4.0); Lymphocytes % 31.4 % (21.2-54.2); Mean Corpuscular HGB Conc 33.7 GM/DL (32-36); Mean Corpuscular Hemoglobin 35 PG (27-34); Mean Corpuscular Volume 102.7 FL (87-102); Mean Platelet Volume 11.1 FL (9.6-12.0); Monocytes # 0.6 10*3/uL (0.11-0.8); Monocytes % 9.4 % (1.7-12.7); Neutrophils # 3.3 10*3/uL (1.4-7.4); Neutrophils % 52.9 % (38.7-73.9); Red Cell Distribution Width 20.4 % (9.3-17.3)
[2017-04-09 09:50] LABS: Hemoglobin 9.1 GM/DL (14.0-18.0); Platelet Count 96 T/CUMM (130-400); Red Blood Count 2.63 MC/CUMM (3.8-5.5); White Blood Count 6.2 T/CUMM (4-12)
[2017-04-09 10:09] LABS: Platelet Estimate Decreased
[2017-04-09 10:15] LABS: Albumin 2.1 G/DL (3.4-5.0); Bilirubin,Total 2.5 MG/DL (0.2-1.0); Calcium 8.7 MG/DL (8.5-10.1); Osmolality,Calculated 284.8 MOS/KG (273-304); Potassium 3.8 MMOL/L (3.5-5.1); Total Protein 6.2 G/DL (6.4-8.3)
[2017-04-09] MEDS: FOLIC ACID 0.4 MG TABLET PO SCH (10:18)
[2017-04-09] MEDS: PANTOPRAZOLE 40 MG TABLET PO SCH ×2 (10:19→21:23)
[2017-04-09] MEDS: THIAMINE 100 MG TABLET PO SCH (10:19)
[2017-04-09] MEDS: MULTIVITAMIN (CENTRUM) TABLET PO SCH (10:19)
[2017-04-09] MEDS: METOPROLOL TARTRATE 25 MG TABLET PO SCH ×2 (10:19→21:23)
[2017-04-09] MEDS: ISOSORBIDE MONONITRATE 30 MG TABLET PO SCH (10:19)
[2017-04-09] MEDS: SPIRONOLACTONE 25 MG TABLET PO SCH ×2 (10:19→21:23)
[2017-04-09] MEDS: MAGNESIUM OXIDE 400 MG TABLET PO SCH ×2 (10:19→21:23)
[2017-04-09] MEDS: LEVOFLOXACIN 750 MG TABLET PO SCH (10:19)
[2017-04-10] MEDS: LACTULOSE 20 GM/30 ML UDCUP PO SCH ×3 (01:21→12:48)
[2017-04-10] MEDS: THIAMINE 100 MG TABLET PO SCH (10:47)
[2017-04-10] MEDS: MAGNESIUM OXIDE 400 MG TABLET PO SCH (10:47)
[2017-04-10] MEDS: FOLIC ACID 0.4 MG TABLET PO SCH (10:47)
[2017-04-10] MEDS: MULTIVITAMIN (CENTRUM) TABLET PO SCH (10:47)
[2017-04-10] MEDS: ISOSORBIDE MONONITRATE 30 MG TABLET PO SCH (10:47)
[2017-04-10] MEDS: METOPROLOL TARTRATE 25 MG TABLET PO SCH (10:48)
[2017-04-10] MEDS: PANTOPRAZOLE 40 MG TABLET PO SCH (10:48)
[2017-04-10] MEDS: SPIRONOLACTONE 25 MG TABLET PO SCH (10:53)
[2017-04-10] MEDS: LEVOFLOXACIN 750 MG TABLET PO SCH (11:06)
[2017-04-10 11:46] VITALS: BP 104/73
== END 2017-04-10 15:53 | disposition home or self-care (01) | DRG 190 ==
LOC: N.ED 16:32 → SUATTDRO 21:37 → N.EDINP 21:37 → N.ICU 23:25 → N.TELES 04-04 14:57 → N.2E 04-06 16:48
PROVIDERS: ADMIT Internal Medicine; ATTEND Internal Medicine